=== PATIENT | female | born 1945 | race Caucasian/White ===

== ENCOUNTER 2020-05-15 14:57 | Outpatient (RCR) | payer MEDICARE, SELFPAY ==
[2013-06-10 14:44] VITALS: BMI 27.0
== END 2020-05-15 23:59 ==
LOC: IMMUN 14:57
PROVIDERS: PCP Family Medicine; Visit Provider Family Medicine
DX: Z23 Encounter for immunization (principal)
CPT/HCPCS: 0011A; 0012A

== ENCOUNTER 2023-04-26 11:01 | Emergency (ER) | payer MEDICARE, SELFPAY ==
[2023-04-26 11:01] VITALS: BP 143/76; PULSE 75; RESP 16; TEMP 35.3; O2SAT 100; BMI 27.9
--- NOTE | 2023-04-26 11:14 | EDS_ITS ---
<Statement entered by Nicholas Roblero MD - 04/26/23 16:51> Pt seen & evaluated w/[facility]. I personally interviewed & exam the pt. I was involved in all aspects of pt's orders, interpretation of results & treatment HPI <ARMIN Chinchilla - Last Filed: 04/26/23 15:12> History of Present Illness Chief Complaint: Diarrhea Narrative Narrative: Patient is a 77-year-old female with history of hypothyroidism takes levothyroxine, presenting to the [facility] apartment with 1 week of diarrhea. Patient states that she is having multiple episodes a day, she states that is just water. She has states that sometimes in the night, she wakes up and she already had diarrhea. She denies any back pain, she denies any numbness or tingling, saddle paresthesia. Patient states that when she is up, she knows she has to go but when she has to go it instant. She denies any fever or chills, she denies any abdominal pain. She did go to urgent care twice for this however after the second time they referred her here for further workup. Patient did go to [facility] which is in [facility] was gone for 1 week and returned home a week ago. Patient states she had no illness there. Patient is well and has no symptoms. Denies any recent biotics in last several months. PFSH <ARMIN Chinchilla - Last Filed: 04/26/23 15:12> [facility] Home Medications levothyroxine 125 mcg tablet 125 mcg PO DAILY 06/10/13 [History Last Taken Unknown] montelukast 10 mg tablet 10 mg PO DAILY 06/10/13 [History Last Taken Unknown] ciprofloxacin HCl 500 mg tablet (Cipro) 500 mg PO BID #10 tabs 04/26/23 [Rx Last Taken Unknown] loperamide 2 mg capsule (Imodium A-D) 2 mg PO Q6H PRN loose stool #20 caps 04/26/23 [Rx Last Taken Unknown] Allergy/AdvReac Type Severity Reaction Status Date / Time iodine Allergy Rash Verified 06/10/13 14:42 naproxen Allergy Other Verified 06/10/13 14:42 Social History Smoking Status: Former smoker ROS <ARMIN Chinchilla - Last Filed: 04/26/23 15:12> ROS ED ROS Narrative Constitutional: No fever, no chills. Positive for weakness HEENT: No sore throat. No neck pain. No loss of vision. No rhinorrhea. Cardiovascular: No chest pain. No palpitations. No pedal edema. Respiratory: No cough, no shortness of breath. Abdominal: No abdominal pain. No nausea. No vomiting. Positive for liquid diarrhea Genitourinary: No dysuria. No hematuria. Musculoskeletal: No myalgias. No arthralgias. Neurologic: No headaches. No dizziness. No lightheadedness. Skin: No rash. No change in color. Psychiatric: No depression. No anxiety. EXAM <ARMIN Chinchilla - Last Filed: 04/26/23 15:12> Physical Exam Narrative Exam Narrative: Afebrile. Vital signs noted. HEENT: Normocephalic. Atraumatic. PERRL, EOMI. Neck soft and supple. No point tenderness or step off. Cardiovascular: Regular rate and rhythm. No murmurs, rubs, or gallops appreciated. Respiratory: No tachypnea. Lungs clear to auscultation bilaterally. Gastrointestinal: Abdomen soft, nontender, with normoactive bowel sounds. No rebound or guarding. Negative for any peritoneal signs. Active bowel sounds in all quadrants Neurological: Awake. Alert. Nonfocal, nonlateralizing. Skin: No rash. Normal color. No pallor. Musculoskeletal: No pedal edema. Full range of motion extremities. Const Vital Signs: 04/26/23 11:01 Temperature 95.6 F L Temperature Source Temporal Pulse Rate 75 Respiratory Rate 16 Blood Pressure 143/76 H Blood Pressure Mean 98 Pulse Ox 100 Oxygen Delivery Method Room Air Positive well nourished and well developed General Appearance ED: well developed <Dr. Nicholas Roblero MD - Last Filed: 04/26/23 12:51> Physical Exam Const Vital Signs: 04/26/23 11:01 Temperature 95.6 F L Temperature Source Temporal Pulse Rate 75 Respiratory Rate 16 Blood Pressure 143/76 H Blood Pressure Mean 98 Pulse Ox 100 Oxygen Delivery Method Room Air MDM <ARMIN Chinchilla - Last Filed: 04/26/23 15:12> MDM Lab Data Labs: Laboratory Results - last 24 hr 04/26/23 11:29 WBC 4.1 L RBC 5.31 Hgb 15.1 H Hct 45.1 MCV 84.9 MCH 28.4 MCHC 33.5 RDW Std Deviation 40.7 RDW Coeff of Rik 13.1 Plt Count 317 MPV 9.8 Immature Gran % (Auto) 0.200 Neut % (Auto) 65.8 Lymph % (Auto) 18.4 L [place] % (Auto) 14.2 H Eos % (Auto) 1.2 Baso % (Auto) 0.2 Absolute Neuts (auto) 2.7 Absolute Lymphs (auto) 0.75 L Nucleated RBC % 0 Sodium 135 L Potassium 3.2 L Chloride 98 Carbon Dioxide 23.0 Anion Gap 14 BUN 21 H Creatinine 1.06 H Estim Creat Clear Calc 46.84 Est GFR (MDRD) Af Amer 65 Est GFR (MDRD) Non-Af 54 L BUN/Creatinine Ratio 19.8 Glucose 97 Calcium 8.1 L Total Bilirubin 0.60 AST 19 ALT 31 Alkaline Phosphatase 83 Total Protein 7.2 Albumin 3.4 Globulin 3.8 Albumin/Globulin Ratio 0.9 Treatment and Re-Evaluation :: Patient appears generally well, patient appears nontoxic, vital signs are stable. Presenting to the emergency department for complaints of diarrhea that been ongoing for the last week. Patient does have recent travel. Patient differential diagnose includes traveler's diarrhea, norovirus, C. difficile, gastroenteritis, other abdominal pathology. Patient's abdominal exam was gross unremarkable, patient had no pain to the right or left lower quadrant, no evidence suspecting diverticulitis, appendicitis. Patient will receive basic laboratory values as well as IV fluids. Stool cultures and sample was ordered. Patient's CBC showed a leukopenia with a white blood count of 4.1, patient's chemistry shows sodium of 135, potassium 3.2, BUN of 21 with a creatinine of 1.06, these only mild elevated. GFR is 54. Remainder of the labs are unremarkable. I did speak with the laboratory, today we will receive the enteric pathogen's as well as the C. difficile, the ova and parasites to send out. However at this time, we are currently waiting for that but the patient looks generally well. Patient C. difficile was negative. At this time, I do believe the patient is stable for discharge. Patient given a prescription for Cipro 500 mg, she will start today. She was placed on Cipro for 5 days. She also given Imodium. All questions were answered, patient stable for discharge <Dr. Nicholas Roblero MD - Last Filed: 04/26/23 12:51> MDM MDM Narrative Medical decision making narrative: I have personally performed a face to face assessment of the patient and have reviewed the ERNA Note. I performed a substantive portion of the visit including all aspects of the following. My lofton findings include: History is 77-year-old female recent trip to [facility] over the last week she has had episodes of diarrhea. Usually 1-2 a day. No prior history. No one else on the trip is ill. She has been on no recent antibiotics nor had any recent hospitalization. Exam is [77-year-old female no acute distress. Vital signs stable afebrile. HEENT exam unremarkable. Neck nontender. Lungs clear to auscultation bilaterally. Heart regular rhythm no murmur rate about 75. Abdomen soft, nontender, nondistended normal bowel sounds no peritoneal signs. Moving all 4 extremities. Calves are nontender without edema. Neurologically she is awake and alert.] Medical Decision Making [77-year-old recent travel weeks worth of diarrhea. But she is only having 1-2 episodes a day. IV fluids and labs. Stool studies.] Other additions or changes: [None] Lab Data Attestation: I reviewed the patient's lab results. Lab results narrative: CBC shows a white count of 4. H&H 15 and 45. Platelets 317. Electrolytes show sodium 135. Potassium 3.2. BUN of 21 creatinine of 1 consist ent with mild dehydration. Liver enzymes are normal. Stool studies are pending. Labs: Laboratory Results - last 24 hr 04/26/23 11:29 WBC 4.1 L RBC 5.31 Hgb 15.1 H Hct 45.1 MCV 84.9 MCH 28.4 MCHC 33.5 RDW Std Deviation 40.7 RDW Coeff of Rik 13.1 Plt Count 317 MPV 9.8 Immature Gran % (Auto) 0.200 Neut % (Auto) 65.8 Lymph % (Auto) 18.4 L [place] % (Auto) 14.2 H Eos % (Auto) 1.2 Baso % (Auto) 0.2 Absolute Neuts (auto) 2.7 Absolute Lymphs (auto) 0.75 L Nucleated RBC % 0 Sodium 135 L Potassium 3.2 L Chloride 98 Carbon Dioxide 23.0 Anion Gap 14 BUN 21 H Creatinine 1.06 H Estim Creat Clear Calc 46.84 Est GFR (MDRD) Af Amer 65 Est GFR (MDRD) Non-Af 54 L BUN/Creatinine Ratio 19.8 Glucose 97 Calcium 8.1 L Total Bilirubin 0.60 AST 19 ALT 31 Alkaline Phosphatase 83 Total Protein 7.2 Albumin 3.4 Globulin 3.8 Albumin/Globulin Ratio 0.9 Discharge Plan Triage Chief Complaint: Diarrhea ED Midlevel Provider: Matthew Snowden ED Provider: Nicholas Roblero Dx/Rx/DC Orders Clinical Impression: Diarrhea after vaccination Instructions: ED Diarrhea, Unknown Cause, ED Traveler's Diarrhea (Adult) Prescriptions: New ciprofloxacin HCl [Cipro] 500 mg tablet 500 mg PO BID Qty: 10 0RF loperamide [Imodium A-D] 2 mg capsule 2 mg PO Q6H PRN (Reason: loose stool) Qty: 20 0RF No Action levothyroxine 125 MCG tablet 125 mcg PO DAILY montelukast 10 MG tablet 10 mg PO DAILY Primary Care Provider: Amado Fabian Referrals: Agustín Mckeon MD [Non-Staff] - Activity Restrictions/Additional Instructions: Take the Cipro until finished, using Imodium. Disposition Disposition: Home, Self Care
[2023-04-26] MEDS: Dicyclomine 10 MG Capsule 20 MG PO (11:35)
[2023-04-26] MEDS: 0.9% Normal Saline (1000mL) 1,000 ML 999 ML IV (11:35)
--- OUTSIDE RECORDS SUMMARY | 2023-04-26 11:42 | XMS RPT_ITS | CCD ---
Author Name Unknown Address [address] [place] [address] Organization [facility] Care Team Providers Care Plant Operator Name Role Phone Amado Freeman DO Primary Care Provider [phone] AMADO FREEMAN Primary Care Unavailable AMADO FREEMAN Referring Unavailable AMADO FREEMAN Primary Care Unavailable AMADO FREEMAN Referring Unavailable FREEAMNAMADO JUNIOR Primary Care Unavailable CHAY SARGENT Referring Unavailable AMADO FREEMAN Referring Unavailable AMADO FREEMAN Primary Care Unavailable AMADO FREEMAN Attending Unavailable AMADO FREEMAN Primary Care Unavailable AMADO FREEMAN Primary Care Unavailable SINDHU QUINTANA Attending Unavailable MELISSA MUNOZ Referring Unavailable FREEMANAMADO JUNIOR Primary Care Unavailable POLLO ZHANG Attending Unavaila ble MELISSA MUNOZ Attending Unavailable AMADO FREEMAN Primary Care Unavailable LYNN SHETH Referring Unavailable AMADO FREEMAN Primary Care Unavailable MISTI ARCOS Attending Unavailable Allergies Allergy Classification Reported Allergen(s) Allergy Type Date of Onset Reaction(s) Facility (20 sources) Iodine; Translations: [IODINE] Drug Allergy 5 [facility] Work Phone: [phone] (20 sources) Naproxen; Translations: [NAPROXEN] Drug Allergy 5 Shortness of Breath [facility] Work Phone: (20 sources) Sulfonamides (Antibiotic); Translations: [SULFA (SULFONAMIDE ANTIBIOTICS)] Drug Intolerance 2 [facility] Work Phone: Medications Current Medications Medication Drug Class(es) Dates Sig (Normalized) Sig (Original) amoxicillin 875 mg / clavulanate 125 mg oral tablet (2 sources) Penicillin-class Antibacterial Start: 10-02-2022 End: 10-12-2022 take 1 tablet by mouth twice daily amoxicillin-clav ulanic acid (AUGMENTIN) 875-125 mg per tablet Indications: Acute otitis media, right Take 1 tablet by mouth twice daily for 10 days. 20 tablet 0 10/02/2022 10/12/2022 Active Completed/Discontinued Medications Medication Drug Class(es) Dates Sig (Normalized) Sig (Original) [id number] 200 actuat albuterol 0.09 mg/actuat metered dose inhaler (8 sources) beta2-Adrenergic Agonist Start: 08-12-2017 End: 04-03-2022 take 2 puff(s) by inhalation every six hours as needed albuterol HFA (VENTOLIN HFA) 90 mcg/actuation inhaler Inhale 2 Puffs as instructed every 6 hours as needed. 1 Inhaler 3 08/12/2017 04/03/2022 Discontinued (Discontinued by Patient) Problems Active Problems Problem Classification Problem Date Documented Da te Episodic/Chronic Allergic reactions (1 source) Eruption due to drug; Translations: [Generalized skin eruption due to drugs and medicaments taken internally] Episodic Asthma (20 sources) Asthma; Translations: [Unspecified asthma, uncomplicated] Onset: 06-24-2016 01-11-2015 Chronic Disorders of lipid metabolism (18 sources) Dyslipidemia; Translations: [Hyperlipidemia, unspecified] Onset: 10-02-2022 Chronic Diverticulosis and diverticulitis (20 sources) Diverticulosis of colon; Translations: [Diverticulosis of large intestine without perforation or abscess without bleeding] 10-23-2005 Chronic Hemorrhoids (20 sources) Internal hemorrhoids; Translations: [Other hemorrhoids] 10-23-2005 Episodic Intestinal infection (1 source) Viral gastroenteritis; Translations: [Viral intestinal infection, unspecified] 04-24-2023 Episodic Other and unspecified benign neoplasm (4 sources) Neoplasm of meninges; Translations: [Benign neoplasm of meninges, unspecified] 11-15-2022 Chronic Other and unspecified benign neoplasm (1 source) Benign neoplasm of meninges, unspecified; Translations: [Meningioma (HCC)] Onset: 12-13-2022 Chronic Other and unspecified benign neoplasm (20 sources) Benign neoplasm of colon; Translations: [Benign neoplasm of colon, unspecified] 10-23-2005 Episodic Other and unspecified benign neoplasm (20 sources) Polyp of colon; Translations: [Polyp of colon] 07-14-2014 Episodic Other ear and sense organ disorders (1 source) Sensorineural hearing loss, bilateral; Translations: [Sensorineural hearing loss, bilateral] 01-23-2023 Chronic Other ear and sense organ disorders (1 source) Sensorineural hearing loss, bilateral; Translations: [Sensorineural hearing loss, bilateral] Onset: 01-23-2023 Chronic Other ear and sense organ disorders (2 sources) Eczema of external auditory canal; Translations: [Acute eczematoid otitis externa, bilateral] Episodic Other gastrointestinal disorders (1 source) Dysphagia; Translations: [Dysphagia, unspecified] Episodic Other hereditary and degenerative nervous system conditions (1 source) Mild cognitive impairment, so stated; Translations: [Mild cognitive impairment, so stated] 11-27-2022 Chronic Other inflammatory condition of skin (20 sources) Scalp psoriasis; Translations: [Psoriasis, unspecified] Onset: 06-24-2016 Chronic Other nervous system disorders (1 source) Mass lesion of brain; Translations: [Other specified disorders of brain] 11-15-2022 Chronic Other nervous system disorders (1 source) Other specified disorders of brain; Translations: [Brain mass] Onset: 11-15-2022 Chronic Other skin disorders (1 source) Sebaceous cyst of skin; Translations: [Sebaceous cyst] Episodic Other skin disorders (2 sources) Eruption; Translations: [Rash and other nonspecific skin eruption] Episodic Other skin disorders (1 source) Skin lesion; Translations: [Disorder of the skin and subcutaneous tissue, unspecified] Episodic Skin and subcutaneous tissue infections (1 source) Infection of skin; Translations: [Local infection of the skin and subcutaneous tissue, unspecified] Episodic Thyroid disorders (20 sources) Hypothyroidism; Translations: [Hypothyroidism, unspecified] Onset: 03-12-2021 03-12-2021 Chronic Past or Other Problems Problem Classification Problem Date Documented Da te Episodic/Chronic Diabetes mellitus without complication (17 sources) Hyperglycemia; Translations: [Hyperglycemia, unspecified] Onset: 10-02-2022 10-02-2022 Episodic Gastritis and duodenitis (20 sources) Acute gastritis; Translations: [Acute gastritis without bleeding] Onset: 10-23-2005 10-23-2005 Episodic Other gastrointestinal disorders (20 sources) Dysphagia, unspecified; Translations: [Dysphagia, unspecified] Onset: 06-30-2014 Episodic Other non-traumatic joint disorders (20 sources) Pain in right hip joint; Translations: [Pain in right hip] Onset: 11-26-2017 11-26-2017 Episodic Other screening for suspected conditions (not mental disorders or infectious disease) (20 sources) Patient encounter status; Translations: [Encounter for screening, unspecified] Onset: 06-30-2014 Episodic Otitis media and related conditions (16 sources) Acute right otitis media; Translations: [Otitis media, unspecified, right ear] Onset: 10-02-2022 10-02-2022 Episodic Residual codes; unclassified (18 sources) Poor short-term memory ; Translations: [Other amnesia] Onset: 10-02-2022 Episodic Residual codes; unclassified (1 source) Other amnesia; Translations: [Short-term memory loss] Onset: 10-02-2022 Episodic Results Test Name Value Interpretation Reference Range Facil ity Vital Signs Date Time Vital Sign Value Performing Clinician Nadiya lockett 04-24-2023 09:24-0500 Body weight 79.38 kg Sindhu Quintana APRN.GATE PERSON Work Phone: [facility] 04-24-2023 09:24-0500 Diastolic blood pressure 84 mm[Hg] Sindhu Quintana APRN.GATE PERSON Work Phone: [facility] 04-24-2023 09:24-0500 Heart rate 79 /min Sindhu Quintana APRN.GATE PERSON Work Phone: [facility] 04-24-2023 09:24-0500 Respiratory rate 16 /min Sindhu Quintana APRN.GATE PERSON Work Phone: [facility] 04-24-2023 09:24-0500 SaO2% (BldA) [Mass fraction] 96 % Sindhu Quintana APRN.GATE PERSON Work Phone: [facility] 04-24-2023 09:24-0500 Systolic blood pressure 120 mm[Hg] Sindhu Quintana APRN.GATE PERSON Work Phone: [facility] 12-13-2022 10:43-0400 Body height 163.1 cm Melissa Munoz MD Work Phone: [facility] 12-13-2022 10:43-0400 Body temperature 97.59 [degF] Melissa Munoz MD Work Phone: [facility] 12-13-2022 10:43-0400 Body weight 81.6 kg Melissa Munoz MD Work Phone: [facility] 12-13-2022 10:43-0400 Diastolic blood pressure 68 mm[Hg] Melissa Munoz MD Work Phone: [facility] 12-13-2022 10:43-0400 Heart rate 66 /min Melissa Munoz MD Work Phone: [facility] 12-13-2022 10:43-0400 Respiratory rate 18 /min Melissa Munoz MD Work Phone: [facility] 12-13-2022 10:43-0400 SaO2% (BldA) [Mass fraction] 100 % Melissa Munoz MD Work Phone: [facility] 12-13-2022 10:43-0400 Systolic blood pressure 185 mm[Hg] Melissa Munoz MD Work Phone: [facility] 11-27-2022 09:24-0400 Body weight 82.15 kg Misti Arcos MD Work Phone: [facility] 11-27-2022 09:24-0400 Diastolic blood pressure 69 mm[Hg] Misti Arcos MD Work Phone: [facility] 11-27-2022 09:24-0400 Heart rate 60 /min Misti Arcos MD Work Phone: [facility] 11-27-2022 09:24-0400 Systolic blood pressure 139 mm[Hg] Misti Arcos MD Work Phone: [facility] 10-02-2022 10:38-0400 Body temperature 96.3 [degF] Amado Freeman DO Work Phone: [facility] 10-02-2022 10:38-0400 Body weight 83.46 kg Amado Freeman DO Work Phone: [facility] 10-02-2022 10:38-0400 Diastolic blood pressure 70 mm[Hg] Amado Freeman DO Work Phone: [facility] 10-02-2022 10:38-0400 Heart rate 72 /min Amado Freeman DO Work Phone: [facility] 10-02-2022 10:38-0400 Respiratory rate 16 /min Amado Freeman DO Work Phone: [facility] 10-02-2022 10:38-0400 Systolic blood pressure 124 mm[Hg] Amado Freeman DO Work Phone: [facility] 04-03-2022 08:43-0500 Body weight 84.91 kg Chay Rosetta STAFF THERAPIST.GATE PERSON Work Phone: [facility] 04-03-2022 08:43-0500 Diastolic blood pressure 90 mm[Hg] Chay Rosetta STAFF THERAPIST.GATE PERSON Work Phone: [facility] 04-03-2022 08:43-0500 Heart rate 76 /min Chay Rosetta STAFF THERAPIST.GATE PERSON Work Phone: [facility] 04-03-2022 08:43-0500 Respiratory rate 16 /min Chay Rosetta STAFF THERAPIST.GATE PERSON Work Phone: [facility] 04-03-2022 08:43-0500 SaO2% (BldA) [Mass fraction] 98 % Chay Rosetta STAFF THERAPIST.GATE PERSON Work Phone: [facility] 04-03-2022 08:43-0500 Systolic blood pressure 142 mm[Hg] Chay Rosetta STAFF THERAPIST.GATE PERSON Work Phone: [facility] 09-10-2021 09:49-0400 Body weight 78.93 kg Chay Rosetta STAFF THERAPIST.GATE PERSON Work Phone: [facility] 09-10-2021 09:49-0400 Diastolic blood pressure 70 mm[Hg] Chay Rosetta STAFF THERAPIST.GATE PERSON Work Phone: [facility] 09-10-2021 09:49-0400 Heart rate 87 /min Chay Rosetta STAFF THERAPIST.GATE PERSON Work Phone: [facility] 09-10-2021 09:49-0400 Respiratory rate 16 /min Chay Rosetta STAFF THERAPIST.GATE PERSON Work Phone: [facility] 09-10-2021 09:49-0400 SaO2% (BldA) [Mass fraction] 98 % Chay Rosetta STAFF THERAPIST.GATE PERSON Work Phone: [facility] 09-10-2021 09:49-0400 Systolic blood pressure 136 mm[Hg] Chay Rosetta STAFF THERAPIST.GATE PERSON Work Phone: [facility] 08-30-2021 11:12-0400 Body weight 79.74 kg Polina Zurawick STAFF THERAPIST.GATE PERSON Work Phone: [facility] 08-30-2021 11:12-0400 Diastolic blood pressure 60 mm[Hg] Polina Zurawick STAFF THERAPIST.GATE PERSON Work Phone: [facility] 08-30-2021 11:12-0400 Heart rate 72 /min Polina Zurawick STAFF THERAPIST.GATE PERSON Work Phone: [facility] 08-30-2021 11:12-0400 Respiratory rate 16 /min Polina Zurawick STAFF THERAPIST.GATE PERSON Work Phone: [facility] 08-30-2021 11:12-0400 Systolic blood pressure 130 mm[Hg] Polina Zurawick STAFF THERAPIST.GATE PERSON Work Phone: [facility] 08-20-2021 11:10-0400 Body temperature 97.7 [degF] Mirela Currie-Lucio STAFF THERAPIST.GATE PERSON Work Phone: [facility] 08-20-2021 11:10-0400 Body weight 80.11 kg Mirela Currie-Lucio STAFF THERAPIST.GATE PERSON Work Phone: [facility] 08-20-2021 11:10-0400 Diastolic blood pressure 100 mm[Hg] Mirela Jaraler-Lucio STAFF THERAPIST.GATE PERSON Work Phone: [facility] 08-20-2021 11:10-0400 Heart rate 74 /min Mirela Currie-Lucio STAFF THERAPIST.GATE PERSON Work Phone: [facility] 08-20-2021 11:10-0400 Respiratory rate 20 /min Mirela Currie-Lucio STAFF THERAPIST.GATE PERSON Work Phone: [facility] 08-20-2021 11:10-0400 SaO2% (BldA) [Mass fraction] 98 % Mirela Cochran STAFF THERAPIST.GATE PERSON Work Phone: [facility] 08-20-2021 11:10-0400 Systolic blood pressure 160 mm[Hg] Mirela Jaraler-Lucio STAFF THERAPIST.GATE PERSON Work Phone: [facility] Encounters Encounter Date Encounter Type Care Provider Facility Start: 04-24-2023 ambulatory AMADO Valdivia ity:[facility] Start: 04-24-2023 End: 04-24-2023 Patient encounter procedure Sindhu Quintana STAFF THERAPIST.GATE PERSON Work Phone: [facility] [place] Procedures Date Procedure Procedure Detail Performing Clinician Start: 01-23-2023 HEARING TEST/AUDIOGRAM Pollo GIL Work Phone: Start: 11-15-2022 Mri brain brain stem w/o w/contrast material Amado Freeman DO Work Phone: Start: 10-16-2022 Ct head/brain w/o co ntrast material Amado Renaeon DO Work Phone: Start: 04-03-2022 Lipid 1996 panel - S barrera or Plasma Misti Arcos MD Work Phone: Start: 08-30-2021 Adult depression scr eening assessment Polina Sheridan STAFF THERAPIST.GATE PERSON Work Phone: Start: 10-02-2017 Mammography Amado junior DO Work Phone: Start: 06-30-2014 Colonoscopy Amado Borrero kaljulia DO Work Phone: Plan of Treatment Date Care Activity Detail Author Start: 04-03-2027 Lipid 1996 panel - Serum or Plasma Lipid Screening [facility] Start: 04-03-2027 Lipid panel Lipid Screening [facility] Start: 04-03-2027 LIPID SCREEN LIPID SCREEN [facility] Start: 10-03-2025 DIABETES SCREEN DIABETES SCREEN [facility] Start: 10-03-2025 Diabetes Screening Diabetes Screenin g [facility] Start: 04-03-2025 DIABETES SCREEN DIABETES SCREEN [facility] Start: 04-24-2024 Annual PCP Team Principal Law Clerk amy Disease Visit Annual PCP Team Chronic Disease Visit [facility] Start: 01-09-2024 DIABETES SCREEN DIABETES SCREEN [facility] Start: 10-03-2023 ANNUAL PCP TEAM EMERY GRINDER AMY DISEASE VISIT ANNUAL PCP TEAM CHRONIC DISEASE VISIT [facility] Start: 04-03-2023 ANNUAL PCP TEAM EMERY GRINDER AMY DISEASE VISIT ANNUAL PCP TEAM CHRONIC DISEASE VISIT [facility] Start: 03-17-2023 Depression Assessment Depression Ass essment [facility] Start: 11-15-2022 Covid-19 Vaccine ( season) Covid-19 Vaccine () [facility] Start: 11-15-2022 Influenza vaccination [facility] Start: 10-03-2022 End: 12-03-2022 Thyrotropin [Units/volume] in Serum or Plasma TSH BLD Lab Routine Hypothyroidism, unspecified type Expected: 10/03/2022, Expires: 12/03/2022 [facility] Work Phone: Immunizations Immunization Date Immunization Notes Care Provider Fa cilinorma 01-07-2022 influenza virus vacc ine, unspecified formulation Misti Arcos MD Work Phone: [facility] 01-12-2021 influenza, high-dose , quadrivalent vaccine (FLUZONE HIGH DOSE QUADRIVALENT) Amado Freeman DO Work Phone: [facility] 11-30-2019 influenza, high-dose , quadrivalent vaccine (FLUZONE HIGH DOSE QUADRIVALENT) Amado Freeman DO Work Phone: [facility] 02-01-2019 influenza, high dose seasonal, preservative-free Amado Freeman DO Work Phone: [facility] Work Phone: 10-01-2017 pneumococcal polysaccharide vaccine, 23 valent Amado Freeman DO Work Phone: [facility] 06-06-2015 pneumococcal conjuga te vaccine, 13 valent Amado Freeman DO Work Phone: [facility] Work Phone: 01-11-2015 influenza, high dose seasonal, preservative-free Amado Freeman DO Work Phone: [facility] 05-31-2011 pneumococcal polysaccharide vaccine, 23 valent Amado Freeman DO Work Phone: [facility] 05-30-2011 tetanus toxoid, redu jaylyn diphtheria toxoid, and acellular pertussis vaccine, adsorbed Amado Freeman DO Work Phone: [facility] Work Phone: Payers Date Payer Category Payer Medicare [id number] 2019 Unknown MMO MMO MEDICARE SUPPLEMENT [id number] 2019-Present [phone] [address] [place] [address] Indemnity [id number] 2019 Unknown MMO MMO MEDICARE SUPPLEMENT [id number] 2019-Present [phone] [address] [place] [address] Indemnity [id number] 2012 Medicare MEDICARE MEDICAR E A AND B [id number] 2012-Present [phone] [address] [address] [place] [address] Medicare [id number] 2012 Medicare [id number] Social History Date Type Detail Facility Start: 07-12-2016 End: 04-03-2022 Tobacco smoking status NHIS Ex-smoker [facility] Start: 11-21-1963 End: 03-17-1996 History of tobacco use Current smoker [facility] Start: 11-21-1963 End: 03-17-1996 History of tobacco use Cigarette Smoker [facility] Start: 01-08-2021 End: 04-24-2023 Alcohol intake Current drinker of alcohol (finding) [facility] Start: 01-08-2021 End: 04-01-2022 Alcohol intake [facility] Work Phone: Start: 07-12-2016 End: 04-03-2022 Tobacco Comment Parents smoked in childhood home. [facility] Start: 1945 Sex Assigned At Female [facility] Start: 08-10-2021 End: 09-10-2021 Exposure to SARS-CoV-2 (event) Not sure [facility] Work Phone: Start: 07-12-2016 End: 04-03-2022 Tobacco use and exposure Smokeless tobacco non-user [facility] Work Phone: Start: 04-01-2022 End: 10-02-2022 Tobacco use panel [facility] Work Phone: Adult Depression Screening Assessment 0 [facility] Work Phone: Start: 01-30-2019 Gender identity Identifies as female gender (finding) [facility] Start: 01-30-2019 Sexual orientation Heterosexual (fin ding) [facility] Clinical Notes 01-19-2021 to 04-24-2023 Patient InstructionsTanSindhu chen APRN.GATE PERSON - 04/24/2023 9:17 AM ESTTelephone Encounter - Kisha Velasquez LPN - 02/27/2023 3:18 PM ESTPollo Zhang AUD - 01/23/2023 3:17 PM EST Note Date & Type Note Facility 04-24-2023 Note HNO ID: [id number] Author: SINDHU QUINTANA APRN.GATE PERSON Service: ? Author Type: Nurse Practitioner Type: Progress Notes Filed: 04/24/2023 09:50 Note Text: This is a 77 year old female who presents today with: Patient presents with: Acute Visit: diarrhea x 2 days HISTORY OF PRESENT ILLNESS: Twan Okeefe is a 77 year old female. Patient presents with: Acute Visit: diarrhea x [address] Freeman here in the office for diarrhea. Started 2 days ago. Having 2-3 episodes of diarrhea per day. No mucus or blood in the stool. Able to tolerate diet without any issues. No recent antibiotic use or international travel. BM's are normally regular. No abdominal pain/cramping, nausea, or vomiting. Colonoscopy: was due in 2018 due to polyps. Patient refers she does not want to have repeat colonoscopies in the future. PAST MEDICAL HISTORY: PAST MEDICAL HISTORY Diagnosis Date Acute gastritis without mention of hemorrhage Asthma in adult, mild persistent, uncomplicated Colon polyps Diverticulosis of colon (without mention of hemorrhage) Glaucoma suspect Hemangioma of unspecified site HEPATIC Hypercholesteremia refuses statins Hypothyroidism Endo: Dr. 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 ezetimibe (ZETIA) 10 mg tablet Take 1 tablet by mouth once daily. ketoconazole (NIZORAL) 2 % shampoo Apply to affected area once daily as needed. iv contrast (will be provided with radiology test) MRI Skull Base Inject, intravenously, once for 1 dose. No IV access, insert saline lock prior to the beginning of sedation, infusion, injection of imaging exam. Discontinue saline lock post exam. If Pt. has a central line or IVAD, may access for administration according to line specific nursing protocol. Once exam is complete flush line and de-access according to line specific nursing protocol in the MR contrast administration guidelines link. dexAMETHasone (PF) ophthalmic solution 0.1% (IP-CPD) Instill 1 drop into each ear canal twice daily until resolution of eczema. Then use as needed for flare-ups. levothyroxine (SYNTHROID) 150 mcg tablet TAKE 1 TABLET BY MOUTH ONCE DAILY ON EMPTY STOMACH FOR THYROID. fluticasone (FLOVENT HFA) 44 mcg/actuation inhaler Inhale 2 Puffs as instructed twice daily. triamcinolone acetonide (KENALOG) 0.1 % cream Apply to affected area twice daily. esomeprazole (NEXIUM) 20 mg capsule TAKE 1 CAPSULE EVERY DAY 1/2 HOUR BEFORE BREAKFAST CHOLECALCIFEROL, VITAMIN D3, (VITAMIN D3 ORAL) Take by mouth. VITAMIN B COMPLEX (B COMPLEX ORAL) Take by mouth once daily. CALCIUM 500 WITH VITAMIN D 500 MG-125 UNIT TAB Take one(1) tablet three times daily. MULTIVITAMIN ORAL TAB Take one(1) tablet daily. No current facility-administered medications for this visit. FAMILY HISTORY Problem Relation Age of Onset Alzheimer's Disease Mother passed 2003 Cancer Father of the lungs, from this Cancer Sister stomach passed from this 03/22/05 Diabetes Sister Hypertension Sister Lipids Sister Social History Tobacco Use Smoking status: Former Packs/day: 0.50 Years: 30.00 Additional pack years: 0.00 Total pack years: 15.00 Types: Cigarettes Start date: 11/21/1963 Quit date: 03/17/1996 Years since quittin.1 Smokeless tobacco: Never Tobacco comments: Parents smoked in childhood home. Vaping Use Vaping Use: Never used Substance Use Topics Alcohol use: Yes Alcohol/week: 1.0 standard drink of alcohol Types: 1 Glasses of Wine (5oz) per week Comment: Socially Drug use: No REVIEW OF SYSTEMS GENERAL: No weight loss, malaise or fevers/chills HEENT: Negative for frequent or significant headaches, No changes in hearing or vision. NECK: Negative for lumps, goiter, pain and significant neck swelling RESPIRATORY: Negative for cough, hemoptysis, wheezing, dyspnea or shortness of breath CARDIOVASCULAR: Negative for chest pain, leg swelling, orthopnea, or palpitations GI: + Diarrhea : No history of dysuria, frequency or incontinence MUSCULOSKELETAL: Negative for joint pain or swelling. SKIN: Negative for lesion (more content not included)... [facility] 04-24-2023 Instructions Sindhu Quintana APRN.CNP - 04/24/2023 9:39 AM EST Continue supportive care at home Stay well hydrated, if needed may drink a body armour May trial a bland diet Good hand hygiene Contact the office if symptoms get worse or do not improve. documented in this encounter [facility] 04-24-2023 History of Present illness Narrative This is a 77 year old female who presents today with: Patient presents with: Acute Visit: diarrhea x 2 days HISTORY OF PRESENT ILLNESS: Twan Okeefe is a 77 year old female. Patient presents with: Acute Visit: diarrhea x [address] Freeman here in the office for diarrhea. Started 2 days ago. Having 2-3 episodes of diarrhea per day. No mucus or blood in the stool. Able to tolerate diet without any issues. No recent antibiotic use or international travel. BM's are normally regular. No abdominal pain/cramping, nausea, or vomiting. Colonoscopy: was due in 2018 due to polyps. Patient refers she does not want to have repeat colonoscopies in the future. PAST MEDICAL HISTORY: PAST MEDICAL HISTORY Diagnosis Date Acute gastritis without mention of hemorrhage Asthma in adult, mild persistent, uncomplicated Colon polyps Diverticulosis of colon (without mention of hemorrhage) Glaucoma suspect Hemangioma of unspecified site HEPATIC Hypercholesteremia refuses statins Hypothyroidism Endo: Dr. 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 ezetimibe (ZETIA) 10 mg tablet Take 1 tablet by mouth once daily. ketoconazole (NIZORAL) 2 % shampoo Apply to affected area once daily as needed. iv contrast (will be provided with radiology test) MRI Skull Base Inject, intravenously, once for 1 dose. No IV access, insert saline lock prior to the beginning of sedation, infusion, injection of imaging exam. Discontinue saline lock post exam. If Pt. has a central line or IVAD, may access for administration according to line specific nursing protocol. Once exam is complete flush line and de-access according to line specific nursing protocol in the MR contrast administration guidelines link. dexAMETHasone (PF) ophthalmic solution 0.1% (IP-CPD) Instill 1 drop into each ear canal twice daily until resolution of eczema. Then use as needed for flare-ups. levothyroxine (SYNTHROID) 150 mcg tablet TAKE 1 TABLET BY MOUTH ONCE DAILY ON EMPTY STOMACH FOR THYROID. fluticasone (FLOVENT HFA) 44 mcg/actuation inhaler Inhale 2 Puffs as instructed twice daily. triamcinolone acetonide (KENALOG) 0.1 % cream Apply to affected area twice daily. esomeprazole (NEXIUM) 20 mg capsule TAKE 1 CAPSULE EVERY DAY 1/2 HOUR BEFORE BREAKFAST CHOLECALCIFEROL, VITAMIN D3, (VITAMIN D3 ORAL) Take by mouth. VITAMIN B COMPLEX (B COMPLEX ORAL) Take by mouth once daily. CALCIUM 500 WITH VITAMIN D 500 MG-125 UNIT TAB Take one(1) tablet three times daily. MULTIVITAMIN ORAL TAB Take one(1) tablet daily. No current facility-administered medications for this visit. FAMILY HISTORY Problem Relation Age of Onset Alzheimer's Disease Mother passed 2003 Cancer Father of the lungs, from this Cancer Sister stomach passed from this 03/22/05 Diabetes Sister Hypertension Sister Lipids Sister Social History Tobacco Use Smoking status: Former Packs/day: 0.50 Years: 30.00 Additional pack years: 0.00 Total pack years: 15.00 Types: Cigarettes Start date: 11/21/1965 Quit date: 03/17/1996 Years since quittin.1 Smokeless tobacco: Never Tobacco comments: Parents smoked in childhood home. Vaping Use Vaping Use: Never used Substance Use Topics Alcohol use: Yes Alcohol/week: 1.0 standard drink of alcohol Types: 1 Glasses of Wine (5oz) per week Comment: Socially Drug use: No REVIEW OF SYSTEMS GENERAL: No weight loss, malaise or fevers/chills HEENT: Negative for frequent or significant headaches, No changes in hearing or vision. NECK: Negative for lumps, goiter, pain and significant neck swelling RESPIRATORY: Negative for cough, hemoptysis, wheezing, dyspnea or shortness of breath CARDIOVASCULAR: Negative for chest pain, leg swelling, orthopnea, or palpitations GI: + Diarrhea : No history of dysuria, frequency or incontinence MUSCULOSKELETAL: Negative for joint pain or swelling. SKIN: Negative for lesions, rash, and itching ENDOCRINE: Negative for cold or heat intolerance, polyuria, polydipsia and goiter NEURO: No history of headaches, syncope, paralysis, seizures or tremors MOOD: Negative for depression, anxiety, or suicidal ideation. EXAM: BP 120/84 Pulse 79 Resp 16 Wt 79.4 kg (175 lb) SpO2 96% BMI 29.84 kg/m PHYSICAL EXAM: General Appearance: Well appearing, alert, in no acute distress, well-hydrated, well nourished. Skin: Skin color, texture, turgor normal, no suspicious rashes or lesions. Head: Normocephalic, no masses, lesions, tenderness or abnormalities. Eyes: Anicteric sclera. Extraocular movements are intact. Lungs: Lungs clear to auscultation. No wheezing, rhonchi, rales. Heart: RRR without murmur, gallop, or rubs. No ectopy. Abdomen: Abdomen soft, non-tender. Bowel sounds hyperactive. No masses, organomegaly. Extremities: No deformities, edema, skin discoloration, clubbing or cyanosis. Good capillary refill. Peripheral Pulses: Normal, Capillary refill <2secs, strong peripheral pulses, Pulses palpable. Neurologic: Gait normal. Sensation grossly intact. ASSESSMENT/PLAN: 1. Viral gastroenteritis - ICD9: 008.8, ICD10: A08.4 - Symptoms consistent with viral gastroenteritis. - Continue supportive care at home. - Eat a bland diet and stay well-hydrated. - If diarrhea does not improve may need stool studies completed. Follow-up if no improvement. Sindhu Quintana APRN.GLORIA This note was partially generated using Buzzilla voice recognition system. Note was reviewed for accuracy. There may be minor misspellings or grammar miscues with Buzzilla voice recognition. documented in this encounter [facility] 02-27-2023 Miscellaneous Notes Patient has been identified by name and date of : Yes, Patient phones for refill(s): Requested Prescriptions Pending Prescriptions Disp Refills montelukast (SINGULAIR) 10 mg tablet 90 tablet 3 Sig: Take 1 tablet by mouth once daily. ezetimibe (ZETIA) 10 mg tablet 90 tablet 3 Sig: Take 1 tablet by mouth once daily. Date of last office visit in primary care: 10/02/2022 Date of next office visit in primary care: none found Please advise. Thank you. Kisha Velasquez LPN. documented in this encounter [facility] 01-23-2023 Note HNO ID: [id number] Author: Pollo Zhang AUD Service: ? Author Type: Fleet Sales Manager Type: Progress Notes Filed: 01/23/2023 6:01 PM Note Text: [facility] AUDIOLOGIC EVALUATION REPORT Name: Twan Okeefe [facility]#: [id number] Date of Service: 01/23/2023 Date of : 1945 Age: [age] year old Referred by: Melissa Munoz MD [id number] [facility] [address] Referred for: Evaluation of suspected change in hearing, tinnitus, or balance. Referral documented: In an order in [facility] Patient's major complaints: Reduced hearing in both ears Twan Okeefe is a 77 year old female who was referred for a hearing test because of concerns for early onset dementia. She denied hearing loss, pain, pressure, tinnitus, and dizziness. Twan Okeefe was seen for an initial audiologic evaluation. See [facility] Audiogram for additional reported history and symptoms. Risk of Falls Documentation for over 65 years old: No history of falls reported so minimal to no risk IMPRESSIONS RIGHT EAR: Sensorineural hearing loss consistent with presbycusis LEFT EAR: Sensorineural hearing loss consistent with presbycusis Comparison of today's results with previous test results : No previous results available AUDIOLOGIC EVALUATION Following is a brief interpretation of the obtained findings from the audiologic evaluation. Refer to the Auditory Test Record for complete audiometric results. The patient was counseled about the test findings and appropriate audiologic recommendations were made. SUMMARY: Audiogram can be viewed under procedures tab. OTOSCOPY RIGHT EAR: Otoscopic inspection revealed ear canal was clear with an identifiable cone of light. LEFT EAR: Otoscopic inspection revealed ear canal was clear with an identifiable cone of light. TYMPANOMETRY Description of procedure: This test is an objective evaluation of middle ear function. CPT code: 36872 RIGHT EAR: Positive pressure (+160 daPa) with normal TM compliance LEFT EAR: Normal ME function. ACOUSTIC REFLEXES Description of procedure: This test is an objective measure of auditory and facial nerve pathways. CPT code: 61224, 16301 RIGHT EAR PROBE EAR: (ipsi right stimulus ear; contralateral left stimulus ear): Acoustic Reflex Pattern Did not test Acoustic Reflex Decay (left stimulus ear): Did not test. LEFT EAR PROBE EAR: (ipsi left stimulus ear; contralateral right stimulus ear): Acoustic Reflex Pattern Did not test Acoustic Reflex Decay (right stimulus ear):Did not test. PURE TONE AUDIOMETRY AND SPEECH TESTING Description of procedure: This test is an objective evaluation hearing sensitivity via air and bone conduction and speech recognition testing. CPT code: 09672 RIGHT EAR: Hearing Sensitivity: Normal hearing sensitivity from 250-4000 Hz sloping from a mild to moderately severe unspecified loss from 1708-4119 Hz. Word Recognition Score: Excellent (90-100%). WRS is consistent with hearing sensitivity. Words were presented at 65 dB HL is above (greater than or equal to 60 dB HL) intensity level for average conversational speech. The NU-6 Ordered by Difficulty Word List (10 words) was used for testing. and Contralateral masking was used. LEFT EAR: Hearing Sensitivity: Normal hearing sensitivity from 250-2000 Hz sloping to a mild sensorineural loss at 4000 Hz and a moderate to moderately severe unspecified loss form 8605-4670 Hz. Word Recognition Score: Excellent (90-100%). WRS is consistent with hearing sensitivity. Words were presented at 65 dB HL which is above (greater than or equal to 60 dB HL) intensity level for average conversational speech. The NU-6 Ordered by Difficulty Word List (10 words) was used for testing. and Contralateral masking was used. RECOMMENDATIONS * Continue medical follow-up with neurologist. * Re-evaluation as medically indicated. * Return if a change in hearing is noted. Ciarra Ayers BA, AuD Student Lauren Duarte, ROBBIE-A Testing was obtained under the direct supervision of Lauren Duarte CCC/Olinda FLOWERS Abbrev- iation Definition Degree of hearing sensitivity dB range WNL within normal limits WNL 0 - 20 SNHL sensorineural hearing loss Mild 20-40 CHL conductive hearing loss Moderate 40-55 MHL mixed hearing loss Moderately-Severe 55-70 WRS word recognition score Severe 70-90 ME middle ear Profound 90 + TM tympanic membrane [facility] 01-23-2023 History of Present illness Narrative [facility] AUDIOLOGIC EVALUATION REPORT Name: Twan Okeefe CC#: [id number] Date of Service: 01/23/2023 Date of : 1945 Age: [age] year old Referred by: Melissa Munoz MD [id number] [facility] [address] Referred for: Evaluation of suspected change in hearing, tinnitus, or balance. Referral documented: In an order in [facility] Patient's major complaints: Reduced hearing in both ears Twan Okeefe is a 77 year old female who was referred for a hearing test because of concerns for early onset dementia. She denied hearing loss, pain, pressure, tinnitus, and dizziness. Twan Okeefe was seen for an initial audiologic evaluation. See [facility] Audiogram for additional reported history and symptoms. Risk of Falls Documentation for over 65 years old: No history of falls reported so minimal to no risk IMPRESSIONS RIGHT EAR: Sensorineural hearing loss consistent with presbycusis LEFT EAR: Sensorineural hearing loss consistent with presbycusis Comparison of today's results with previous test results : No previous results available AUDIOLOGIC EVALUATION Following is a brief interpretation of the obtained findings from the audiologic evaluation. Refer to the Auditory Test Record for complete audiometric results. The patient was counseled about the test findings and appropriate audiologic recommendations were made. SUMMARY: Audiogram can be viewed under procedures tab. OTOSCOPY RIGHT EAR: Otoscopic inspection revealed ear canal was clear with an identifiable cone of light. LEFT EAR: Otoscopic inspection revealed ear canal was clear with an identifiable cone of light. TYMPANOMETRY Description of procedure: This test is an objective evaluation of middle ear function. CPT code: 59408 RIGHT EAR: Positive pressure (+160 daPa) with normal TM compliance LEFT EAR: Normal ME function. ACOUSTIC REFLEXES Description of procedure: This test is an objective measure of auditory and facial nerve pathways. CPT code: 83397, 06344 RIGHT EAR PROBE EAR: (ipsi right stimulus ear; contralateral left stimulus ear): Acoustic Reflex Pattern Did not test Acoustic Reflex Decay (left stimulus ear): Did not test. LEFT EAR PROBE EAR: (ipsi left stimulus ear; contralateral right stimulus ear): Acoustic Reflex Pattern Did not test Acoustic Reflex Decay (right stimulus ear):Did not test. PURE TONE AUDIOMETRY AND SPEECH TESTING Description of procedure: This test is an objective evaluation hearing sensitivity via air and bone conduction and speech recognition testing. CPT code: 32881 RIGHT EAR: Hearing Sensitivity: Normal hearing sensitivity from 250-4000 Hz sloping from a mild to moderately severe unspecified loss from 5218-6015 Hz. Word Recognition Score: Excellent (90-100%). WRS is consistent with hearing sensitivity. Words were presented at 65 dB HL is above (greater than or equal to 60 dB HL) intensity level for average conversational speech. The NU-6 Ordered by Difficulty Word List (10 words) was used for testing. and Contralateral masking was used. LEFT EAR: Hearing Sensitivity: Normal hearing sensitivity from 250-2000 Hz sloping to a mild sensorineural loss at 4000 Hz and a moderate to moderately severe unspecified loss form 9437-8105 Hz. Word Recognition Score: Excellent (90-100%). WRS is consistent with hearing sensitivity. Words were presented at 65 dB HL which is above (greater than or equal to 60 dB HL) intensity level for average conversational speech. The NU-6 Ordered by Difficulty Word List (10 words) was used for testing. and Contralateral masking was used. RECOMMENDATIONS * Continue medical follow-up with neurologist. * Re-evaluation as medically indicated. * Return if a change in hearing is noted. Ciarra Ayers BA, AuD Student Lauren Duarte CCC-Olinda Testing was obtained under the direct supervision of Lauren Duarte CCC/Olinda FLOWERS Abbrev- iation Definition Degree of hearing sensitivity dB range WNL within normal limits WNL 0 - 20 SNHL sensorineural hearing loss Mild 20-40 CHL conductive hearing loss Moderate 40-55 MHL mixed hearing loss Moderately-Severe 55-70 WRS word recognition score Severe 70-90 ME middle ear Profound 90 + TM tympanic membrane documented in this encounter [facility] 12-13-2022 Note HNO ID: [id number] Author: Melissa Munoz MD Service: ? Author Type: Physician Type: Progress Notes Filed: 12/13/2022 12:03 PM Note Text: SECTION OF SKULL BASE SURGERY MINIMALLY INVASIVE CRANIAL BASE AND PITUITARY SURGERY PROGRAM [facility], [facility] CC: Patient Care Team: Amado Freeman DO as PCP - General (Family Medicine) Lynn Sheth MD ASSESSMENT/PLAN: Twan Okeefe presents with incidental asymptomatic left lateral petrous/jugular foramen extra-axial mass. I believe this is most likely represents a meningioma although the possibility that this could represent another type of tumor was also discussed. The natural history of meningiomas was discussed in detail. Treatment options were discussed in detail including observation, radiation treatment/radiosurgery, or surgery. I do not believe this is related to her memory loss. I think treatment would be reasonable due to size, as we may still have a window for fGKRS, and surgery would be feasible as well. However, because she has no symptoms and age, we agreed for initial conservative approach with repeat MRI brain wwo contrast in 5-6 months and in person or virtual visit, sooner if she develops any hearing loss, vertigo, swallowing difficulty, gait imbalance. I have reviewed the history AND physical obtained and documented by the nurse who scribed on my behalf. I examined the patient and evaluated all available films and pertinent documents. This note accurately reflects work and decisions made by me. I spent approximately 45 minutes of total time for evaluation and management services provided on the date of the encounter which included preparing to see the patient, [id number] patient care, completing clinical documentation, performing a medically appropriate examination, counseling and educating the patient/family/caregiver, communicating with other HCPs, independently interpreting results and care coordination. Melissa Munoz MD Staff, Skull Base AND Cerebrovascular Surgery Department of Neurological Surgery [facility] The patient is referred by Dr. Sheth for neurosurgical evaluation. Final recommendations will be communicated back to the requesting physician by way of the shared medical records, or letters to requesting physician via US Mail. Chief Complaint: memory loss History of Present Illness: Patient is accompanied by her . The patient is a 77 year old female who presents with incidentally discovered L extra-axial mass at left cerebellopontine angle with extension into jugular foramen concerning for potential meningioma. She is currently endorsing some short-term memory loss. She does not endorse any tinnitus, hearing loss, vertigo, dizziness, feeling off-balance, difficulties with swallowing, of facial twitching. Past Medical History: PAST MEDICAL HISTORY Diagnosis Date Acute gastritis without mention of hemorrhage Asthma in adult, mild persistent, uncomplicated Colon polyps Diverticulosis of colon (without mention of hemorrhage) Glaucoma suspect Hemangioma of unspecified site HEPATIC Hypercholesteremia refuses statins Hypothyroidism Endo: Dr. 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 LIG/TRNSXJ FLP TUBE ABDL/VAG APPR UNI/BI THYROIDECTOMY TOTAL/COMPLETE 07/2008 multinodular goiter TONSILLECTOMY PRIMARY/SECONDARY Family History: FAMILY HISTORY Problem Relation Age of Onset Alzheimer's Disease Mother passed 2003 Cancer Father of the lungs, from this Cancer Sister stomach passed from this 03/22/05 Diabetes Sister Hypertension Sister Lipids Sister Social History: Social History Tobacco Use Smoking status: Former Packs/day: 0.50 Years: 30.00 Additional pack years: 0.00 Total pack years: 15.00 Types: Cigarettes Start date: 11/21/1965 Quit date: 03/17/1996 Years since quittin.7 Smokeless tobacco: Never Tobacco comments: Parents smoked in childhood home. Vaping Use Vaping Use: Never used Substance Use Topics Alcohol use: Yes Alcohol/week: 2.5 standard drinks of alcohol Types: 1 Glasses of Wine (5oz) per week Comment: Socially Drug use: No Medications: Current Outpatient Medications on File Prior to Visit Medication Sig dexAMETHasone (PF) ophthalmic solution 0.1% (IP-CPD) Instill 1 drop into ea (more content not included)... [facility] 12-13-2022 Instructions Melissa Munoz MD - 12/13/2022 11:48 AM EDT We see an incidental tumor at the base of the skull on the left. This is not related to your short term memory loss in my opinion. I believe this is most likely represents a meningioma although the possibility that this could represent another type of tumor was also discussed. The natural history of meningiomas was discussed in detail. Treatment options were discussed in detail including observation, radiation treatment/radiosurgery, or surgery. Overall, we agreed for initial observation with repeat MRI brain wwo contrast in Apr-May 2022 and also new audiogram. If you develop new left hearing loss, vertigo, swallowing difficulty, significant balance problems, let us know and we can do MRI sooner. Melissa Munoz MD Staff, Skull Base & Cerebrovascular Surgery Department of Neurological Surgery [facility] documented in this encounter [facility] 12-13-2022 History of Present illness Narrative Images from the original note were not included. SECTION OF SKULL BASE SURGERY MINIMALLY INVASIVE CRANIAL BASE & PITUITARY SURGERY PROGRAM [facility] & [facility], [facility] CC: Patient Care Team: Amado Freeman DO as PCP - General (Family Medicine) Lynn Sheth MD ASSESSMENT/PLAN: Twan Okeefe presents with incidental asymptomatic left lateral petrous/jugular foramen extra-axial mass. I believe this is most likely represents a meningioma although the possibility that this could represent another type of tumor was also discussed. The natural history of meningiomas was discussed in detail. Treatment options were discussed in detail including observation, radiation treatment/radiosurgery, or surgery. I do not believe this is related to her memory loss. I think treatment would be reasonable due to size, as we may still have a window for fGKRS, and surgery would be feasible as well. However, because she has no symptoms and age, we agreed for initial conservative approach with repeat MRI brain wwo contrast in 5-6 months and in person or virtual visit, sooner if she develops any hearing loss, vertigo, swallowing difficulty, gait imbalance. I have reviewed the history & physical obtained and documented by the nurse who scribed on my behalf. I examined the patient and evaluated all available films and pertinent documents. This note accurately reflects work and decisions made by me. I spent approximately 45 minutes of total time for evaluation and management services provided on the date of the encounter which included preparing to see the patient, [id number] patient care, completing clinical documentation, performing a medically appropriate examination, counseling and educating the patient/family/caregiver, communicating with other HCPs, independently interpreting results and care coordination. Melissa Munoz MD Staff, Skull Base & Cerebrovascular Surgery Department of Neurological Surgery [facility] The patient is referred by Dr. Sheth for neurosurgical evaluation. Final recommendations will be communicated back to the requesting physician by way of the shared medical records, or letters to requesting physician via [place] Mail. Chief Complaint: memory loss History of Present Illness: Patient is accompanied by her . The patient is a 77 year old female who presents with incidentally discovered L extra-axial mass at left cerebellopontine angle with extension into jugular foramen concerning for potential meningioma. She is currently endorsing some short-term memory loss. She does not endorse any tinnitus, hearing loss, vertigo, dizziness, feeling off-balance, difficulties with swallowing, of facial twitching. Past Medical History: PAST MEDICAL HISTORY Diagnosis Date Acute gastritis without mention of hemorrhage Asthma in adult, mild persistent, uncomplicated Colon polyps Diverticulosis of colon (without mention of hemorrhage) Glaucoma suspect Hemangioma of unspecified site HEPATIC Hypercholesteremia refuses statins Hypothyroidism Endo: Dr. 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 LIG/TRNSXJ FLP TUBE ABDL/VAG APPR UNI/BI THYROIDECTOMY TOTAL/COMPLETE 07/2008 multinodular goiter TONSILLECTOMY PRIMARY/SECONDARY <AGE 14 Family History: FAMILY HISTORY Problem Relation Age of Onset Alzheimer's Disease Mother passed 2003 Cancer Father of the lungs, from this Cancer Sister stomach passed from this 03/22/05 Diabetes Sister Hypertension Sister Lipids Sister Social History: Social History Tobacco Use Smoking status: Former Packs/day: 0.50 Years: 30.00 Additional pack years: 0.00 Total pack years: 15.00 Types: Cigarettes Start date: 11/21/1965 Quit date: 03/17/1996 Years since quittin.7 Smokeless tobacco: Never Tobacco comments: Parents smoked in childhood home. Vaping Use Vaping Use: Never used Substance Use Topics Alcohol use: Yes Alcohol/week: 2.5 standard drinks of alcohol Types: 1 Glasses of Wine (5oz) per week Comment: Socially Drug use: No Medications: Current Outpatient Medications on File Prior to Visit Medication Sig dexAMETHasone (PF) ophthalmic solution 0.1% (IP-CPD) Instill 1 drop into each ear canal twice daily until resolution of eczema. Then use as needed for flare-ups. levothyroxine (SYNTHROID) 150 mcg tablet TAKE 1 TABLET BY MOUTH ONCE DAILY ON EMPTY STOMACH FOR THYROID. ketoconazole (NIZORAL) 2 % shampoo Apply to affected area once daily as needed. fluticasone (FLOVENT HFA) 44 mcg/actuation inhaler Inhale 2 Puffs as instructed twice daily. montelukast (SINGULAIR) 10 mg tablet Take 1 tablet by mouth once daily. triamcinolone acetonide (KENALOG) 0.1 % cream Apply to affected area twice daily. esomeprazole (NEXIUM) 20 mg capsule TAKE 1 CAPSULE EVERY DAY 1/2 HOUR BEFORE BREAKFAST ezetimibe (ZETIA) 10 mg tablet Take 1 tablet by mouth once daily. CHOLECALCIFEROL, VITAMIN D3, (VITAMIN D3 ORAL) Take by mouth. VITAMIN B COMPLEX (B COMPLEX ORAL) Take by mouth once daily. CALCIUM 500 WITH VITAMIN D 500 MG-125 UNIT TAB Take one(1) tablet three times daily. MULTIVITAMIN ORAL TAB Take one(1) tablet daily. No current facility-administered medications on file prior to visit. Allergies: ALLERGIES Allergen Reactions Iodine Rash questionable Naprosyn [Naproxen] Shortness of Breath Sulfa (Sulfonamide * Rash Significant rash Physical Examination: BP 185/68 Pulse 66 Temp 36.4 C (97.6 F) (Oral) Resp 18 Ht 163.1 cm (5' 4.21 ) Wt 81.6 kg (179 lb 14.4 oz) SpO2 100% BMI 30.68 kg/m Well developed, well nourished Awake, alert, conversant Speech: Normal fluency and comprehension 2nd cranial nerve: Full visual trejo 3rd, 4th, and 6th cranial nerves: Pupils equally round and reactive to light, extraocular movements intact without nystagmus or subjective diplopia 5th cranial nerve: V1-3 intact to light touch bilaterally 7th cranial nerve: Facial muscles full and symmetric bilaterally 8th cranial nerve: hearing intact to finger rub bilaterally 9th cranial nerve: gag reflex test deferred 10th cranial nerve: Palate elevates symmetrically and uvula in the midline 11th cranial nerve: shoulder shrug 5/5 bilaterally 12th cranial nerve: tongue protrudes in the midline Motors: Normal muscle tone, 5/5 strength throughout without pronator drift Sensation: Intact to light touch in all extremities Coordination: no dysmetria on fingers-nose testing bilaterally Gait: able to stand and ambulate independently with normal gait Data Review: Imaging: IMPRESSION: Large extra-axial mass centered at the left cerebellopontine angle with component extending to the left jugular foramen and associated mass effect, imaging features most suggestive of meningioma, as detailed above. Nonspecific small foci of high T2 and FLAIR signal involving the white matter, likely representing mild chronic microvascular ischemic changes. Fluid in the mastoid air cells. documented in this encounter [facility] 12-13-2022 Nurse Note Additional intake questions: Has the patient had fever, nausea, vomiting, diarrhea, constipation, fatigue for > 1 week? No Does the patient have a decreased appetite? No Does patient want to see a Electron Beam Welder Setter? No (yes to any of above refer patient to schedulers for dietitian appointment) ) Does patient have any new or increased numbness or tingling of extremities? No Is patient interested in fertility information? No Does patient need any prescription refills? No Does patient have an advanced directive in place? Yes, no copy found in [facility] Patient referred to [facility] Electronically Signed By: Kalpana Bennett MA documented in this encounter [facility] 12-02-2022 Miscellaneous Notes [place] informed. OK for verbal prescription. Thank you, Polina Lakhani APRN.GATE PERSON [place] with [facility] pharmacy calls to say they don't do the compound prescriptions for eye drops bc they are a non-sterile pharmacy. They have the eye drops commercially available would that be ok? Pharmacist said they wouldn't be preservative free. Please call Washington back at [phone] with verbal ok to fill prescription. Katharina Mooney RN documented in this encounter [facility] 12-02-2022 Miscellaneous Notes The following approved medication requests have been transmitted electronically. Requested Prescriptions Signed Prescriptions Disp Refills dexAMETHasone (PF) ophthalmic solution 0.1% (IP-CPD) 15 mL 2 Sig: Instill 1 drop into each ear canal twice daily until resolution of eczema. Then use as needed for flare-ups. Authorizing Provider: POLINA LAKHANI APRN.GLORIA TC to patient who was given providers message below. Patient states she would like to just have the medication sent to [facility] pharmacy to avoid any difficulties with having it filled at [facility]. Patient states she is unsure if she has ever had it filled there before. Please review and advise. If provider agreeable to send to [facility], patient does not need a call back. Thank you. SANTHOSH Cardozo I have sent to [facility]. If this is a compounded medication, I am not sure that [facility] can fill this either. I believe the only compound pharmacy around here is [facility] but I am not positive. Has she had this filled before? Thank you, Polina Lakhani APRN.GATE PERSON The following approved medication requests have been transmitted electronically. Requested Prescriptions Signed Prescriptions Disp Refills dexAMETHasone (PF) ophthalmic solution 0.1% (IP-CPD) 15 mL 2 Sig: Instill 1 drop into each ear canal twice daily until resolution of eczema. Then use as needed for flare-ups. Authorizing Provider: POLINA LAKHANI APRN.GATE PERSON Patent returned call regarding message below. Requesting script be sent to [facility] Tae for 90 day script if possible. Script pended for review. Daily Reyes RN [facility] calls to let provider know they are unable to fill dexamethasone PF ophthalmic solution 0.1%.((IP-CPD) because they are not a compound pharmacy. Prescription has been cancelled on their end. Call placed to patient to notify and ask which pharmacy she would like prescription sent to. Please send prescription request to provider once patient returns call. Katharina Mooney RN documented in this encounter [facility] 11-27-2022 Note HNO ID: [id number] Author: Misti Arcos MD Service: ? Author Type: Physician Type: Progress Notes Filed: 11/27/2022 10:25 AM Note Text: [facility] New Patient Evaluation Date: November 27, 2022 Patient Name: Twan Okeefe The [facility] was asked by Dr. Freeman to evaluate Twan Okeefe. Our recommendations of care will be communicated by shared medical record. Reason for Evaluation/Chief complaint: memory problems Accompanied by: spouse --------- - SUBJECTIVE: HPI: Twan Okeefe is a 77 year old Left handed female who presents to the [facility] for an initial evaluation. Patient has been seen and referred by Dr. Amado Freeman. Patient has a pertinent PMHx significant for Hypothyroidism, Asthma, Gastritis. Today's visit: Short term memory loss noticeable for a year at the most. She is forgetting recent conversations and day. has to repeat often. She will ask the same questions within a few minutes. She reads and no language concerns. No word finding difficulties. She enjoys reading but sometimes does not remember what she read. Her mother had some form of dementia. She feels her symptoms are getting worse. does the grocery shopping and cooking now. She would forget an ingredient while cooking. She takes care of the house. She had MMSE completed which was In March. Mood: normal Neurobehavioral symptoms: normal Sleep: normal REVIEW OF SYSTEMS: Weight change/Appetite: no concerns Hearing: no change Vision: Glasses Constipation, Diarrhea: no Incontinence: no Chest pain: No Edema: No Dyspnea: No Falls/injuries/accidents: No NEURO: SEE HPI --------- - OUTPATIENT MEDICATIONS Current Outpatient Medications on File Prior to Visit Medication Sig levothyroxine (SYNTHROID) 150 mcg tablet TAKE 1 TABLET BY MOUTH ONCE DAILY ON EMPTY STOMACH FOR THYROID. montelukast (SINGULAIR) 10 mg tablet Take 1 tablet by mouth once daily. triamcinolone acetonide (KENALOG) 0.1 % cream Apply to affected area twice daily. ketoconazole (NIZORAL) 2 % shampoo Apply to affected area once daily as needed. esomeprazole (NEXIUM) 20 mg capsule TAKE 1 CAPSULE EVERY DAY 1/2 HOUR BEFORE BREAKFAST ezetimibe (ZETIA) 10 mg tablet Take 1 tablet by mouth once daily. fluticasone (FLOVENT HFA) 44 mcg/actuation inhaler Inhale 2 Puffs as instructed twice daily. dexAMETHasone (PF) ophthalmic solution 0.1% (IP-CPD) Instill 1 drop into each ear canal twice daily until resolution of eczema. Then use as needed for flare-ups. CHOLECALCIFEROL, VITAMIN D3, (VITAMIN D3 ORAL) Take by mouth. VITAMIN B COMPLEX (B COMPLEX ORAL) Take by mouth once daily. CALCIUM 500 WITH VITAMIN D 500 MG-125 UNIT TAB Take one(1) tablet three times daily. MULTIVITAMIN ORAL TAB Take one(1) tablet daily. No current facility-administered medications on file prior to visit. MEDICAL HISTORY PAST MEDICAL HISTORY Diagnosis Date Acute gastritis without mention of hemorrhage Asthma in adult, mild persistent, uncomplicated Colon polyps Diverticulosis of colon (without mention of hemorrhage) Glaucoma suspect Hemangioma of unspecified site HEPATIC Hypercholesteremia refuses statins Hypothyroidism Endo: Dr. 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 No significant alcohol abuse. No history of substance abuse. -Marital status: FAMILY HISTORY FAMILY HI (more content not included)... [facility] 11-27-2022 Instructions Misti Arcos MD - 11/27/2022 10:23 AM EDT PLAN: Hypothyroidism treatment to monitored closely and follow up with Dr. Freeman. Follow with neurosurgery for possible meningioma Will place referral for neuropsychological testing to better characterize his/her reported deficits and to establish a cognitive baseline General brain health measures discussed, including the importance of regular aerobic exercise Follow up with me after testing is complete. -Exercise 5 times a week, 30 minutes each day. -Mediterranean diet has been proven beneficial for memory impairment. -Maintain fixed sleep schedule - sleeping and waking up at the same time every day. -Engage in brain stimulating activities such as Sudoku puzzle and crossword -Learn stress reducing techniques -Close monitoring of other medical conditions Please refer to [email or web address] website. It provides evidence based education on diet, exercise and activities that have benefit for memory. To reach [facility]: For any questions or concerns, please call our offices at [phone]. You will be given a list of options. For appointments, please press option 1 For research or studies, press option 2 Providers office please press option 3, this will then direct you to our principal secretary who can be of further assistance. To reach your provider more easily, please feel free to use [employer]. If you are looking to make an appointment, please call [phone] or [phone]. documented in this encounter [facility] 11-27-2022 Nurse Note Twan Okeefe is a 77 year old year old left handed woman Accompanied by: spouse. Referral by: Amado Freeman [address] 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 [facility] Vital Signs: BP 139/69 Pulse 60 Wt 82.1 kg (181 lb 1.6 oz) BMI 31.09 kg/m documented in this encounter [facility] 11-27-2022 History of Present illness Narrative Images from the original note were not included. [facility] New Patient Evaluation Date: November 27, 2022 Patient Name: Twan COBBN: [id number] The [facility] was asked by Dr. Freeman to evaluate Twan Okeefe. Our recommendations of care will be communicated by shared medical record. Reason for Evaluation/Chief complaint: memory problems Accompanied by: spouse SUBJECTIVE: HPI: Twan Okeefe is a 77 year old Left handed female who presents to the [facility] for an initial evaluation. Patient has been seen and referred by Dr. Amado Freeman. Patient has a pertinent PMHx significant for Hypothyroidism, Asthma, Gastritis. Today's visit: Short term memory loss noticeable for a year at the most. She is forgetting recent conversations and day. has to repeat often. She will ask the same questions within a few minutes. She reads and no language concerns. No word finding difficulties. She enjoys reading but sometimes does not remember what she read. Her mother had some form of dementia. She feels her symptoms are getting worse. does the grocery shopping and cooking now. She would forget an ingredient while cooking. She takes care of the house. She had MMSE completed which was 28 In March. Mood: normal Neurobehavioral symptoms: normal Sleep: normal REVIEW OF SYSTEMS: Weight change/Appetite: no concerns Hearing: no change Vision: Glasses Constipation, Diarrhea: no Incontinence: no Chest pain: No Edema: No Dyspnea: No Falls/injuries/accidents: No NEURO: SEE HPI OUTPATIENT MEDICATIONS Current Outpatient Medications on File Prior to Visit Medication Sig levothyroxine (SYNTHROID) 150 mcg tablet TAKE 1 TABLET BY MOUTH ONCE DAILY ON EMPTY STOMACH FOR THYROID. montelukast (SINGULAIR) 10 mg tablet Take 1 tablet by mouth once daily. triamcinolone acetonide (KENALOG) 0.1 % cream Apply to affected area twice daily. ketoconazole (NIZORAL) 2 % shampoo Apply to affected area once daily as needed. esomeprazole (NEXIUM) 20 mg capsule TAKE 1 CAPSULE EVERY DAY 1/2 HOUR BEFORE BREAKFAST ezetimibe (ZETIA) 10 mg tablet Take 1 tablet by mouth once daily. fluticasone (FLOVENT HFA) 44 mcg/actuation inhaler Inhale 2 Puffs as instructed twice daily. dexAMETHasone (PF) ophthalmic solution 0.1% (IP-CPD) Instill 1 drop into each ear canal twice daily until resolution of eczema. Then use as needed for flare-ups. CHOLECALCIFEROL, VITAMIN D3, (VITAMIN D3 ORAL) Take by mouth. VITAMIN B COMPLEX (B COMPLEX ORAL) Take by mouth once daily. CALCIUM 500 WITH VITAMIN D 500 MG-125 UNIT TAB Take one(1) tablet three times daily. MULTIVITAMIN ORAL TAB Take one(1) tablet daily. No current facility-administered medications on file prior to visit. MEDICAL HISTORY PAST MEDICAL HISTORY Diagnosis Date Acute gastritis without mention of hemorrhage Asthma in adult, mild persistent, uncomplicated Colon polyps Diverticulosis of colon (without mention of hemorrhage) Glaucoma suspect Hemangioma of unspecified site HEPATIC Hypercholesteremia refuses statins Hypothyroidism Endo: Dr. 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 No significant alcohol abuse. No history of substance abuse. -Marital status: FAMILY HISTORY FAMILY HISTORY Problem Relation Age of Onset Alzheimer's Disease Mother passed 2003 Cancer Father of the lungs, from this Cancer Sister stomach passed from this 03/22/05 Diabetes Sister Hypertension Sister Lipids Sister No known family history of dementia. ALLERGIES ALLERGIES Allergen Reactions Iodine Rash questionable Naprosyn [Naproxen] Shortness of Breath Sulfa (Sulfonamide * Rash Significant rash OUTSIDE RECORDS: No outside records provided to review. INTERNAL RECORDS: The patient's electronic medical record was reviewed. The relevant details are summarized in this note. Functional Evaluation: B-ADLs: (I=independent,A=assistance,D=dep endent) ?Bathing: I , Dressing: I , Toileting: I , Transferring: I , Continence: I , Feeding: I I-ADLs: Transportation: I and limited driving, Medications: has been managing medication for a few months. She would get the pills confused, Handle Finances: always managed finances. OBJECTIVE: PHYSICAL EXAM: Vitals: BP 139/69 Pulse 60 Wt 82.1 kg (181 lb 1.6 oz) BMI 31.09 kg/m General appearance: Sitting upright. Appears stated age. No acute distress. Non-toxic appearing. No hypomimia. Neuro: Mental Status: Alert, oriented to person, place, and time. Follows commands. Answering questions appropriately. No dysarthria or hypophonia Saeid Cognitive Assessment (MoCA) Version 1 Total Score: 17/30 Visuospatial/Executive: 2/5 Namin/3 Attention: 4/6 Language: 2/3 Abstraction: 2/2 Delayed Recall: 0/5 Orientation: 4/6 Education less than or equal to 12th grade: +0 MoCA Past Scores MoCA 11/27/2022 MOCA TOTAL SCORE 17 out of 30 Visuospatial/ Executive 2 Naming 3 Attention 4 Language 2 Abstraction 2 Delayed Recall 0 Orientation 4 Education Level 0 Cranial Nerves: EOMI CN VII: Face symmetric, no ptosis or facial droop CN VIII: Auditory acuity intact CN IX/CN X: Normal palate elevation CN XI: Normal shoulder shrug CN XII: Normal tongue strength and range of motion; no deviation Motor Exam: No cog-wheeling. No rest tremor. No significant postural or intention tremor. No bradykinesia with finger tapping bilaterally. No abnormal movements, jerks. Strength 5/5 in UE's bilaterally. LE's 5/5 throughout as well. Sensory: Intact to light touch in all extremities. Pinprick, vibration, and proprioception not assessed. Coordination: FNF with no ataxia or dysmetria. Gait: Arises independently; normal posture; gait stable with normal stride length, rate, base and arm swing. IMAGING REVIEW: 11/15/2022 12:44 PM - Radiology, [place] In Impression IMPRESSION: Large extra-axial mass centered at the left cerebellopontine angle with component extending to the left jugular foramen and associated mass effect, imaging features most suggestive of meningioma, as detailed above. Nonspecific small foci of high T2 and FLAIR signal involving the white matter, likely representing mild chronic microvascular ischemic changes. Fluid in the mastoid air cells. LABS Hemoglobin A1C Date Value Ref Range Status 10/03/2022 5.5 4.3 - 5.6 % Final Comment: [place] [employer] guidelines indicate that patients with HgbA1c in the range 5.7-6.4% are at increased risk for development of diabetes, and intervention by lifestyle modification may be beneficial. HgbA1c greater or equal to 6.5% is considered diagnostic of diabetes. TSH Date Value Ref Range Status 10/03/2022 90.600 (H) 0.270 - 4.200 mIU/L Final Vitamin B12 Date Value Ref Range Status 10/03/2022 626 232 - 1,245 pg/mL Final Plan ASSESSMENT: Ms. Okeefe is a 77 year old FEMALE presents for memory testing. 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 MRI shows asymmetrical enlargement of right temporal horn and incidental finding of large presumed meningioma with some mass effect. Hypothyroidism s/p thyroid surgery with recent poorly controlled TSH. She was not taking the medication for some reason, ran out and did not inquire about a new prescription. She is on it now and ensures she takes it every day on empty stomach. This is likely affecting her memory as well. I would like to see if there is any improvement once TSH is better. In the meantime she needs NSG evaluation. I would like to do Neuropsychological testing but that can be delayed if needed based on neurosurgery plan. PLAN: Hypothyroidism treatment to monitored closely and follow up with Dr. Freeman. Follow with neurosurgery for possible meningioma Will place referral for neuropsychological testing to better characterize his/her reported deficits and to establish a cognitive baseline General brain health measures discussed, including the importance of regular aerobic exercise Follow up with me after testing is complete. I spent a total of 65 minutes on the date of the service which included preparing to see the patient, [id number] patient care, completing clinical documentation, obtaining and/or reviewing separately obtained history, performing a medically appropriate examination, counseling and educating the patient/family/caregiver, ordering medications, tests, or procedures, and communicating with other HCPs (not separately reported). Voice recognition software was used to compose this office note. Please excuse any unintended typographical errors. Misti Acros MD Geriatric Medicine [facility] 11/27/2022 9:14 AM CC: Referring Physician: Amado Freeman [address] [facility] [id number] PCP: Amado Freeman [address] [place] [address] Patient Entered Data: Patient-Reported 11/25/2022 Where are you currently living? Home / Private residence Are you using any community resources to help care for yourself? No Has your caregiver accompanied you today? No Did you receive help completing this questionnaire? No If you received help, could you have completed this questionnaire on your own? N/A - I did not receive any help Activities of Daily Living (ADL) No flowsheet data found. PROMIS-10 PROMIS 10 11/25/2022 In general, would you say your health is: Very good In general, would you say your quality of life is: Excellent In general, how would you rate your physical health? Very good In general, how would you rate your mental health, including your mood and your ability to think? Good In general, how would you rate your satisfaction with your social activities and relationships? Excellent To what extent are you able to carry out your everyday physical activities such as walking, climbing stairs, carrying groceries, or moving a chair? Completely In general, please rate how well you carry out your usual social activities and roles. (This includes activities at home, at work and in your community, and responsibilities as a parent, child, spouse, employee, friend, etc.) Very good How would you rate your pain on average? 0 - No Pain How would you rate your fatigue on average? Mild How often have you been bothered by emotional problems such as feeling anxious, depressed or irritable? Rarely PROMIS Adult Short Form-Global Health Score (Physical) 57.7 (Very Good) PROMIS Adult Short Form-Global Health Score (Mental) 56 (Excellent) PHQ-9 PHQ-9 All Questions 11/25/2022 10/02/2022 Little interest or pleasure in doing things 1 0 Feeling down, depressed, or hopeless 1 0 Trouble falling or staying asleep, or sleeping too much 0 - Feeling tired or having little energy 1 - Poor appetite or overeating 1 - Feeling bad about yourself - or that you are a failure or have let yourself or your family down 1 - Trouble concentrating on things, such as reading the newspaper or watching television 0 - Moving or speaking so slowly that other people could have noticed. Or the opposite - being so fidgety or restless that you have been moving around a lot more than usual 0 - Thoughts that you would be better off , or of hurting yourself in some way 0 - PHQ-9 Score 5 - (0-4) minimal depression (5-9) mild depression (10-14) moderate depression (15-19) moderately severe depression (20-27) severe depression Full History of PHQ-9 Scores PHQ-9 Score 11/25/2022 5 Sleep 11/25/2022 What is your average total sleep time per night over the past 4 weeks? 8 Hours What is your average total sleep time during the day over the past 4 weeks? 2 Hours Have you been diagnosed with sleep apnea? No Do you snore loudly? No Do you often feel sleepy, tired, or fatigued during the day? No Have you been told that you stop breathing during sleep? No Have you been told or are you being treated for high blood pressure? No Probability of moderate-severe sleep apnea (%) SAPS V2 32 (Sleep study not recommended) Insomnia Severity Index 11/25/2022 Difficulty falling asleep 0 Difficulty staying asleep 0 Problem waking up too early 0 Satisfied/dissatisfied with current sleep pattern 0 Sleep interferes with daily functions 0 Sleep problems noticeable to others 0 Worried/distressed about current sleep problems 0 Score 0 Caregiver-Reported No flowsheet data found. Dementia Severity Rating Scale (DSRS) No flowsheet data found. documented in this encounter [facility] 11-25-2022 Miscellaneous Notes Time Frame: MARTÍNEZ 1-2 weeks Provider: Tammy/ Anand/ Luciana Referring: Amado Freeman, DO Images in Epic Dx: Meningioma Patient: Twan Okeefe Address: Twan Okeefe [id number] [place] [id number] Per Triage: Twan Okeefe is a 77 year old female that requests evaluation of newly diagnosed extra-axial mass. She presented to her PCP 10/02/22 with complaints of short term memory loss (concerns from her ), prompting head imaging. Referred by: Amado Freeman DO Patient expectations: New Consult Tumor Specifics: Location: brain Previous Evaluations: MRI BRAIN w/wo contrast (11/15/22): IMPRESSION: Large extra-axial mass centered at the left cerebellopontine angle with component extending to the left jugular foramen and associated mass effect, imaging features most suggestive of meningioma, as detailed above. Nonspecific small foci of high T2 and FLAIR signal involving the white matter, likely representing mild chronic microvascular ischemic changes. Fluid in the mastoid air cells. CT brain (10/16/22): IMPRESSION: Noncontrast CT imaging findings suggestive of extra-axial mass lesion, likely meningioma, in the left posterior fossa, as detailed above. Follow-up MRI with and without contrast would be of benefit for further assessment. Fluid in the right mastoid air cells. Linsey Velasco APRN.GATE PERSON November 25, 2022 Order Information Date and Time Department Ordering Authorizing 11/25/2022 9:18 AM [facility] Nicole Louise Devon S Order Providers Authorizing Provider Encounter Provider Lynn Sheth MD Swetlik, Carol E, MD Future Order Information Expires 11/25/23 Associated Diagnoses Meningioma (HCC) [D32.9] Reason for Exam Priority: Routine Dx: Meningioma (HCC) [D32.9 (ICD-10-CM)] Order Questions Question Answer [facility] Epic access? Yes Priority and Order Details Priority Class Routine Aurelia Internal Referral documented in this encounter [facility] 11-19-2022 Miscellaneous Notes Patient Edmundo returned call and went over results, notes from Dr Freeman with understanding. Assisted with transfer to a institutional aide to get Neurosurgery appt set up. Message left to return call. Please inform patient that MRI of her brain shows results as below IMPRESSION IMPRESSION: Large extra-axial mass centered at the left cerebellopontine angle with component extending to the left jugular foramen and associated mass effect, imaging features most suggestive of meningioma, as detailed above. Nonspecific small foci of high T2 and FLAIR signal involving the white matter, likely representing mild chronic microvascular ischemic changes I would like her to follow up with Neurosurgeon for opinion. This is likely a meningioma .Amado Freeman DO documented in this encounter [facility] 11-15-2022 Note HNO ID: [id number] Author: Emilie Mauricio CT Service: ? Author Type: Technologist Type: Progress Notes Filed: 11/15/2022 11:53 AM Note Text: Radiology Service Progress Note DATE OF SERVICE: November 15, 2022 TIME: 11:52 AM PATIENT IDENTITY VERIFICATION COMPLETED USING TWO (2) STANDARD IDENTIFIERS: Name and Date of confirmed by patient verbally and Name and Date of confirmed by identification band. FALL SCREENING: Has the patient had 2 falls in the last year or 1 fall with injury or currently using an Ambulatory Assistive Device (Walker, Cane, Wheelchair, Crutches, etc.)? No PATIENT GENDER DATA: Female. status: : No status: NO. PATIENT RELEVANT IMPLANT DATA REVIEWED: Yes ALLERGIES: Reviewed and unchanged CONTRAST ALLERGY: NO. EXAM: MRI - CONTRAST TYPE: GROUP II PERIPHERAL IV DATA: Ambulatory: A peripheral IV was started in the Left antecubital site with a Angio cath: 22 gauge. RADIOLOGY DEPARTMENT: MR; Exam(s) Completed: Head: Routine Brain SIGNATURE: OTTO Valentino PATIENT NAME: Twan Okeefe DATE: November 15, 2022 TIME: 11:52 AM [facility] 11-15-2022 History of Present illness Narrative Radiology Service Progress Note DATE OF SERVICE: November 15, 2022 TIME: 11:52 AM PATIENT IDENTITY VERIFICATION COMPLETED USING TWO (2) STANDARD IDENTIFIERS: Name and Date of confirmed by patient verbally and Name and Date of confirmed by identification band. FALL SCREENING: Has the patient had 2 falls in the last year or 1 fall with injury or currently using an Ambulatory Assistive Device (Walker, Cane, Wheelchair, Crutches, etc.)? No PATIENT GENDER DATA: Female. status: : No status: NO. PATIENT RELEVANT IMPLANT DATA REVIEWED: Yes ALLERGIES: Reviewed and unchanged CONTRAST ALLERGY: NO. EXAM: MRI - CONTRAST TYPE: GROUP II PERIPHERAL IV DATA: Ambulatory: A peripheral IV was started in the Left antecubital site with a Angio cath: 22 gauge. RADIOLOGY DEPARTMENT: MR; Exam(s) Completed: Head: Routine Brain SIGNATURE: OTTO Valentino PATIENT NAME: Twan J Anisha DATE: November 15, 2022 TIME: 11:52 AM documented in this encounter [facility] 11-13-2022 Note Patient Outreach (NS CAMN) TWAN OKEEFE ([id number]) 1945 F Date Time Provider Department 11/13/22 SCOTT MERRITT NSCAMN During your visit today, we recorded the following information about you: Scott Merritt PA-C 11/13/2022 11:00 AM Signed Actionable Finding: ct Brain completed 10/16/[address] imaging findings suggestive of extra-axial mass lesion, likely meningioma, in the left posterior fossa, as detailed above. Follow-up MRI with and without contrast would be of benefit for further assessment. Follow up MRI brain ordered 10/16/22 as recommended. Actionable Finding addressed. Scott Merritt PA-C Allergies As of Date: 11/13/2022 Noted Allergy Reaction IODINE 11/28/2004 2 - Rash Comments: questionable NAPROSYN (NAPROXEN) 11/28/2004 12 - Shortness of Breath SULFA (SULFONAMIDE ANTIBIOTICS) 09/10/2021 2 - Rash Comments: Significant rash Date Reviewed: 10/02/2022 Reviewed by: Scott Wilson LPN - Fully Assessed Prescriptions as of 11/13/2022 - levothyroxine (SYNTHROID) 150 mcg tablet TAKE 1 TABLET BY MOUTH ONCE DAILY ON EMPTY STOMACH FOR THYROID. - montelukast (SINGULAIR) 10 mg tablet Take 1 tablet by mouth once daily. - triamcinolone acetonide (KENALOG) 0.1 % cream Apply to affected area twice daily. - ketoconazole (NIZORAL) 2 % shampoo Apply to affected area once daily as needed. - esomeprazole (NEXIUM) 20 mg capsule TAKE 1 CAPSULE EVERY DAY 1/2 HOUR BEFORE BREAKFAST - ezetimibe (ZETIA) 10 mg tablet Take 1 tablet by mouth once daily. - fluticasone (FLOVENT HFA) 44 mcg/actuation inhaler Inhale 2 Puffs as instructed twice daily. - dexAMETHasone (PF) ophthalmic solution 0.1% (IP-CPD) Instill 1 drop into each ear canal twice daily until resolution of eczema. Then use as needed for flare-ups. - CHOLECALCIFEROL, VITAMIN D3, (VITAMIN D3 ORAL) Take by mouth. - VITAMIN B COMPLEX (B COMPLEX ORAL) Take by mouth once daily. - CALCIUM 500 WITH VITAMIN D 500 MG-125 UNIT TAB Take one(1) tablet three times daily. - MULTIVITAMIN ORAL TAB Take one(1) tablet daily. Meds Comments as of 06/06/2015: Problem List As Of Date 11/13/2022 Noted Resolved Goiter, unspecified [E04.9] 05/30/2011 Asthma [J45.909] BENIGN NEOPLASM LG BOWEL [D12.6] DIVERTICULOSIS OF COLON W/O BLEED [K57.30] INT HEMORRHOID W/O COMPL [K64.8] ACUTE GASTRITIS W/O HEMORRHAGE [K29.00] 10/23/2005 Hypothyroidism [E03.9] Screening for unspecified condition [Z13.9] 06/30/2014 Dysphagia, unspecified(787.20) [R13.10] 06/30/2014 Colon polyps [K63.5] Mild intermittent asthma without complication [*06/24/2016 Scalp psoriasis [L40.9] 06/24/2016 Right hip pain [M25.551] 11/26/2017 Asthma in adult, mild persistent, uncomplicated* Dermatochalasis of both upper eyelids [H02.831,*01/19/2021 01/19/2021 Short-term memory loss [R41.3] 10/02/2022 Hyperglycemia [R73.9] 10/02/2022 Acute otitis media, right [H66.91] 10/02/2022 Dyslipidemia [E78.5] 10/02/2022 Encounter Status:Closed by SCOTT MERRITT on 11/13/22 [facility] 11-13-2022 Note HNO ID: [id number] Author: Scott Merritt PA-C Service: ? Author Type: Physician Disc Jockey Type: Progress Notes Filed: 11/13/2022 11:00 AM Note Text: Actionable Finding: ct Brain completed 10/16/[address] imaging findings suggestive of extra-axial mass lesion, likely meningioma, in the left posterior fossa, as detailed above. Follow-up MRI with and without contrast would be of benefit for further assessment. Follow up MRI brain ordered 10/16/22 as recommended. Actionable Finding addressed. Scott Merritt PA-C [facility] 11-13-2022 History of Present illness Narrative Actionable Finding: ct Brain completed 10/16/[address] imaging findings suggestive of extra-axial mass lesion, likely meningioma, in the left posterior fossa, as detailed above. Follow-up MRI with and without contrast would be of benefit for further assessment. Follow up MRI brain ordered 10/16/22 as recommended. Actionable Finding addressed. Scott Merritt PA-C documented in this encounter [facility] 10-16-2022 Note HNO ID: [id number] Author: Lynette Gutierrez RT(R) Service: ? Author Type: Supervisor Extruding Department Type: Progress Notes Filed: 10/16/2022 11:20 AM Note Text: Radiology Service Progress Note PATIENT NAME: Twan Okeefe DATE OF SERVICE: October 16, 2022 TIME: 11:20 AM PATIENT IDENTITY VERIFICATION COMPLETED USING TWO (2) IDENTIFIERS: Name and Date of confirmed by patient verbally. FALL SCREENING: Has the patient had 2 falls in the last year or 1 fall with injury or currently using an Ambulatory Assistive Device (Walker, Cane, Wheelchair, Crutches, etc.)? No PATIENT GENDER DATA: Female. status: : No status: NO. PATIENT RELEVANT IMPLANT DATA REVIEWED: Yes RADIOLOGY DEPARTMENT: CT; Exam(s) Completed: Brain PERIPHERAL IV DATA: Not applicable SIGNED BY: RT Ness(Joseline) October 16, 2022 11:20 AM [facility] 10-16-2022 History of Present illness Narrative Radiology Service Progress Note PATIENT NAME: Twan Okeefe DATE OF SERVICE: October 16, 2022 TIME: 11:20 AM PATIENT IDENTITY VERIFICATION COMPLETED USING TWO (2) IDENTIFIERS: Name and Date of confirmed by patient verbally. FALL SCREENING: Has the patient had 2 falls in the last year or 1 fall with injury or currently using an Ambulatory Assistive Device (Walker, Cane, Wheelchair, Crutches, etc.)? No PATIENT GENDER DATA: Female. status: : No status: NO. PATIENT RELEVANT IMPLANT DATA REVIEWED: Yes RADIOLOGY DEPARTMENT: CT; Exam(s) Completed: Brain PERIPHERAL IV DATA: Not applicable SIGNED BY: RT Ness(Joseline) October 16, 2022 11:20 AM documented in this encounter [facility] 10-10-2022 Miscellaneous Notes Patient's returned call. He and his are unsure of how long she has not been taking the medication. He can't find a recent prescription bottle and he checked with [facility] and it was never filled there in the past. Neither of them know for certain the length of time she has been off of Levothyroxine. Jennifer Koroma, RN Spoke with Patient. Patient is unsure if she is taking or not taking medication. Will have call back when he gets home. Do we have any idea how long she has been out of it? Sometimes if it has been a while, I will start a little lower and bring her back up slowly. Spoke with pt waiting while she and her went through medicine cabinet she states ''oh I guess I have none and have not been taking it. ''So she will need a script called to [facility] here in town. She slept in and has not eaten as of yet states if called in she will go get it and start taking today. Explained how to take the medicine she kept repeating it to me and so her wrote it down. He states this would explain a lot of things lately. If could be called in he will go get it and make sure she takes it. Explained Dr. Freeman is out would send to call specialist and see if he would do this for her. Please inform patient that her thyroid labs are dangerously abnormal. Her TSH is very high in the 90s, free t3 is extremeily low and free t4 is extremely low. Is she taking her thyroid medication levothyroxine? What does is she taking? Is she taking it is AM at least 30 min before eating food- this is recommended? Dose needs to be adjusted up a lot if she is actually taking levothyroxine. If she isn't taking it, she must immediately start again. This is likely contributing to her memory concerns. Amado Freeman DO documented in this encounter [facility] 10-02-2022 Note HNO ID: [id number] Author: Amado Freeman DO Service: ? Author Type: Physician Type: Progress Notes Filed: 10/02/2022 12:25 PM Note Text: CC: Twan Okeefe is a 76 year old female who presents to the office for follow up HPI: She states that she was seen by Jeanette Sargent CNP in Mar. At that time Has been forgetting things such as a short term conversation or plans that have been made. Mostly just little things. Will remember and correct herself. has some concern. Has increased over the last 6 months. Mother had dementia that started about this ago. She had MMSE completed which was 28/30 score and had labs obtained but hasn't seen specialist. Denies any new tremors or dizziness/LH, no edema, no chest pain or pressure, no head injuries. States that her Edmundo has noticed concerns with her short term memory / forgetfulness. No word finding difficulty or speech changes. No weakness in limbs or fevers or chills or paresthesias. Hypothyroidism, states that she is taking her levothyroxine 150 mcg a day. Labs were abnormal in Mar. Hasn't had labs rechecked yet. URI symptoms for the last week which have mostly resolved other than right ear pressure and discomfort and difficulty with decreased hearing, no fevers or chills. + sick contacts PAST MEDICAL HISTORY Diagnosis Date Acute gastritis without mention of hemorrhage Asthma in adult, mild persistent, uncomplicated Colon polyps Diverticulosis of colon (without mention of hemorrhage) Glaucoma suspect Hemangioma of unspecified site HEPATIC Hypercholesteremia refuses statins Hypothyroidism Endo: Dr. 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 triamcinolone acetonide (KENALOG) 0.1 % cream Apply to affected area twice daily. ketoconazole (NIZORAL) 2 % shampoo Apply to affected area once daily as needed. esomeprazole (NEXIUM) 20 mg capsule TAKE 1 CAPSULE EVERY DAY 1/2 HOUR BEFORE BREAKFAST ezetimibe (ZETIA) 10 mg tablet Take 1 tablet by mouth once daily. fluticasone (FLOVENT HFA) 44 mcg/actuation inhaler Inhale 2 Puffs as instructed twice daily. dexAMETHasone (PF) ophthalmic solution 0.1% (IP-CPD) Instill 1 drop into each ear canal twice daily until resolution of eczema. Then use as needed for flare-ups. levothyroxine (SYNTHROID) 150 mcg tablet TAKE 1 TABLET BY MOUTH ONCE DAILY ON EMPTY STOMACH FOR THYROID. CHOLECALCIFEROL, VITAMIN D3, (VITAMIN D3 ORAL) Take by mouth. VITAMIN B COMPLEX (B COMPLEX ORAL) Take by mouth once daily. CALCIUM 500 WITH VITAMIN D 500 MG-125 UNIT TAB Take one(1) tablet three times daily. MULTIVITAMIN ORAL TAB Take one(1) tablet daily. amoxicillin-clavulanic acid (AUGMENTIN) 875-125 mg per tablet Take 1 tablet by mouth twice daily for 10 days. No current facility-administered medications for this visit. ALLERGIES Allergen Reactions Iodine Rash questionable Naprosyn [Naproxen] Shortness of Breath Sulfa (Sulfonamide * Rash Significant rash Social History Tobacco Use Smoking status: Former Packs/day: 0.50 Years: 30.00 Total pack years: 15.00 Types: Cigarettes Start date: 11/21/1965 Quit date: 03/17/1996 Years since quittin.5 Smokeless tobacco: Never Tobacco comments: Parents smoked in childhood home. Vaping Use Vaping Use: Never used Substance Use Topics Alcohol use: Yes Alcohol/week: 2.5 standard drinks of alcohol Types: 1 Glasses of Wine (5oz) per week Comment: Socially Drug use: No ROS: See HPI. PE: BP 124/70 Pulse 72 Temp (Src) 96.3 (Left Tympanic) Resp 16 Wt 184 lb (83.5kg) Gen: AANDOX3, NAD, non-toxic appearing HEENT: PERRLA, EOMs intact b/l, nares without drainage, pharynx without erythema, exudate, lesions, or drainage. Uvula midline. MMM, EAC and TM on left normal other than psoriasis skin changes. Right TM with erythema and bulging and EAC with psoriasis Neck: No LAD, no thyromegaly, no meningismus. CV: RRR, no murmur Lungs: CTA b/l, no wheezing Skin: No rashes, lesions, or wounds on exposed skin. Non focal neurologic exam, gait slightly unsteady, some difficulty with getting up onto examination table with turning self to sit, otherwise normal CN exam No edema, (more content not included)... [facility] 10-02-2022 History of Present illness Narrative CC: Twan Okeefe is a 76 year old female who presents to the office for follow up HPI: She states that she was seen by Jeanette Sargent CNP in Mar. At that time Has been forgetting things such as a short term conversation or plans that have been made. Mostly just little things. Will remember and correct herself. has some concern. Has increased over the last 6 months. Mother had dementia that started about this ago. She had MMSE completed which was 28/30 score and had labs obtained but hasn't seen specialist. Denies any new tremors or dizziness/LH, no edema, no chest pain or pressure, no head injuries. States that her Edmundo has noticed concerns with her short term memory / forgetfulness. No word finding difficulty or speech changes. No weakness in limbs or fevers or chills or paresthesias. Hypothyroidism, states that she is taking her levothyroxine 150 mcg a day. Labs were abnormal in Mar. Hasn't had labs rechecked yet. URI symptoms for the last week which have mostly resolved other than right ear pressure and discomfort and difficulty with decreased hearing, no fevers or chills. + sick contacts PAST MEDICAL HISTORY Diagnosis Date Acute gastritis without mention of hemorrhage Asthma in adult, mild persistent, uncomplicated Colon polyps Diverticulosis of colon (without mention of hemorrhage) Glaucoma suspect Hemangioma of unspecified site HEPATIC Hypercholesteremia refuses statins Hypothyroidism Endo: Dr. 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 triamcinolone acetonide (KENALOG) 0.1 % cream Apply to affected area twice daily. ketoconazole (NIZORAL) 2 % shampoo Apply to affected area once daily as needed. esomeprazole (NEXIUM) 20 mg capsule TAKE 1 CAPSULE EVERY DAY 1/2 HOUR BEFORE BREAKFAST ezetimibe (ZETIA) 10 mg tablet Take 1 tablet by mouth once daily. fluticasone (FLOVENT HFA) 44 mcg/actuation inhaler Inhale 2 Puffs as instructed twice daily. dexAMETHasone (PF) ophthalmic solution 0.1% (IP-CPD) Instill 1 drop into each ear canal twice daily until resolution of eczema. Then use as needed for flare-ups. levothyroxine (SYNTHROID) 150 mcg tablet TAKE 1 TABLET BY MOUTH ONCE DAILY ON EMPTY STOMACH FOR THYROID. CHOLECALCIFEROL, VITAMIN D3, (VITAMIN D3 ORAL) Take by mouth. VITAMIN B COMPLEX (B COMPLEX ORAL) Take by mouth once daily. CALCIUM 500 WITH VITAMIN D 500 MG-125 UNIT TAB Take one(1) tablet three times daily. MULTIVITAMIN ORAL TAB Take one(1) tablet daily. amoxicillin-clavulanic acid (AUGMENTIN) 875-125 mg per tablet Take 1 tablet by mouth twice daily for 10 days. No current facility-administered medications for this visit. ALLERGIES Allergen Reactions Iodine Rash questionable Naprosyn [Naproxen] Shortness of Breath Sulfa (Sulfonamide * Rash Significant rash Social History Tobacco Use Smoking status: Former Packs/day: 0.50 Years: 30.00 Total pack years: 15.00 Types: Cigarettes Start date: 11/21/1965 Quit date: 03/17/1996 Years since quittin.5 Smokeless tobacco: Never Tobacco comments: Parents smoked in childhood home. Vaping Use Vaping Use: Never used Substance Use Topics Alcohol use: Yes Alcohol/week: 2.5 standard drinks of alcohol Types: 1 Glasses of Wine (5oz) per week Comment: Socially Drug use: No ROS: See HPI. PE: BP 124/70 Pulse 72 Temp (Src) 96.3 (Left Tympanic) Resp 16 Wt 184 lb (83.5kg) Gen: A&OX3, NAD, non-toxic appearing HEENT: PERRLA, EOMs intact b/l, nares without drainage, pharynx without erythema, exudate, lesions, or drainage. Uvula midline. MMM, EAC and TM on left normal other than psoriasis skin changes. Right TM with erythema and bulging and EAC with psoriasis Neck: No LAD, no thyromegaly, no meningismus. CV: RRR, no murmur Lungs: CTA b/l, no wheezing Skin: No rashes, lesions, or wounds on exposed skin. Non focal neurologic exam, gait slightly unsteady, some difficulty with getting up onto examination table with turning self to sit, otherwise normal CN exam No edema, normal pulses ASSESSMENT/PLAN: 1. Short-term memory loss - ICD9: 780.93, ICD10: R41.3 (primary diagnosis) Need for labs and CT brain and referral to Neurologist. She scored 28/30 on MMSE in office in Mar. Didn't repeat this testing today. Will get opinion by specialist. Has a fmhx of dementia, unknown type, in mother. - CT BRAIN WO IVCON - VITAMIN D 25 HYDROXY - VITAMIN B12 BLOOD - C-REACTIVE PROTEIN (CRP) - CONSULT TO NEUROLOGY 2. Hyperglycemia - ICD9: 790.29, ICD10: R73.9 Recheck labs - HGB A1C 3. Hypothyroidism, unspecified type - ICD9: 244.9, ICD10: E03.9 - Instructed patient on importance of taking on an empty stomach either first thing in the morning or at bedtime. - continue current dose of Synthroid 0.150 mg Stable - Behavioral intervention, - Eat well program, and - Continue current medications - TSH BLD - T4 FREE/FREE THYROX - T3 FREE BLD - CBC + DIFF - COMP METABOLIC PANEL 4. Acute otitis media, right - ICD9: 382.9, ICD10: H66.91 - Will begin treatment with as per antibiotic as written, see orders - AMOXICILLIN 875 MG-POTASSIUM CLAVULANATE 125 MG TABLET 5. Dyslipidemia - ICD9: 272.4, ICD10: E78.5 - Control undetermined, due for labs - Continue current medications - Counseled on healthy diet and regular exercise - Discussed need for and benefit of weight loss. BMI 31.22 kg/(m^2) Amado Freeman DO Return if no improvement. Follow up with Amado Freeman DO. To ER if develops chest pain, shortness of breath Discussed risks, benefits, alternatives, and potential side effects of medications. Patient/Guardian expressed understanding and agreed with the plan. See patient instructions. Amado Freeman DO [address] [place] [address] documented in this encounter [facility] 08-21-2022 Note Patient Outreach (IN [facility]) TWAN OKEEFE ([id number]) 1945 F Date Time Provider Department 08/21/22 AMADO FREEMAN [place] During your visit today, we recorded the following information about you: Allergies As of Date: 08/21/2022 Noted Allergy Reaction IODINE 11/28/2004 2 - Rash Comments: questionable NAPROSYN (NAPROXEN) 11/28/2004 12 - Shortness of Breath SULFA (SULFONAMIDE ANTIBIOTICS) 09/10/2021 2 - Rash Comments: Significant rash Date Reviewed: 04/03/2022 Reviewed by: Chay Sargent APRN.GATE PERSON - Fully Assessed Visit Diagnosis:Encounter for screening mammogram for breast cancer [Z12.31] Order(s):[facility] SCREENING [[id number]] Order #: [id number] FUTURE Prescriptions as of 08/26/2022 - montelukast (SINGULAIR) 10 mg tablet Take 1 tablet by mouth once daily. - triamcinolone acetonide (KENALOG) 0.1 % cream Apply to affected area twice daily. - ketoconazole (NIZORAL) 2 % shampoo Apply to affected area once daily as needed. - esomeprazole (NEXIUM) 20 mg capsule TAKE 1 CAPSULE EVERY DAY 1/2 HOUR BEFORE BREAKFAST - ezetimibe (ZETIA) 10 mg tablet Take 1 tablet by mouth once daily. - fluticasone (FLOVENT HFA) 44 mcg/actuation inhaler Inhale 2 Puffs as instructed twice daily. - dexAMETHasone (PF) ophthalmic solution 0.1% (IP-CPD) Instill 1 drop into each ear canal twice daily until resolution of eczema. Then use as needed for flare-ups. - levothyroxine (SYNTHROID) 150 mcg tablet TAKE 1 TABLET BY MOUTH ONCE DAILY ON EMPTY STOMACH FOR THYROID. - CHOLECALCIFEROL, VITAMIN D3, (VITAMIN D3 ORAL) Take by mouth. - VITAMIN B COMPLEX (B COMPLEX ORAL) Take by mouth once daily. - CALCIUM 500 WITH VITAMIN D 500 MG-125 UNIT TAB Take one(1) tablet three times daily. - MULTIVITAMIN ORAL TAB Take one(1) tablet daily. Meds Comments as of 06/06/2015: Problem List As Of Date 08/21/2022 Noted Resolved Goiter, unspecified [E04.9] 05/30/2011 Asthma [J45.909] BENIGN NEOPLASM LG BOWEL [D12.6] DIVERTICULOSIS OF COLON W/O BLEED [K57.30] INT HEMORRHOID W/O COMPL [K64.8] ACUTE GASTRITIS W/O HEMORRHAGE [K29.00] 10/23/2005 Hypothyroidism [E03.9] Screening for unspecified condition [Z13.9] 06/30/2014 Dysphagia, unspecified(787.20) [R13.10] 06/30/2014 Colon polyps [K63.5] Mild intermittent asthma without complication [*06/24/2016 Scalp psoriasis [L40.9] 06/24/2016 Right hip pain [M25.551] 11/26/2017 Asthma in adult, mild persistent, uncomplicated* Dermatochalasis of both upper eyelids [H02.831,*01/19/2021 01/19/2021 Encounter Status:Closed by LOUISE PRODUSER on 08/26/22 [facility] 04-05-2022 Miscellaneous Notes Patent was notified Janny Brink Ma Please have her start taking her levothyroxine correctly in the morning, and then recheck her levels again in 6 weeks. Noted with the statins. Chay Sargent APRN.CNP Spoke with pt she states is taking every day but with her full breakfast and all other meds . Did explain has to be by itself an hour before eating or 3-4 hours after eating. As far as zetia she states she has always been anti-statins. Does not want to take them. Did explain the risks . Please let Twan know that I received her lab results. Her TSH level is very high and has increased significantly. T3 level is a little bit low. Please verify-is she taking her levothyroxine 150mcg every morning without missing a day, on an empty stomach, 1 hour prior to eating? Her total and LDL cholesterol are too high. Is she taking her Zetia 10mg every evening? Is she able to tolerate a statin medication such as Crestor? No other concerns. Chay Sargent APRN.CNP documented in this encounter [facility] 04-03-2022 Nurse Note Ambulatory Ear Lavage Pre-treatment: No pre-treatment Treatment: Both ears Equipment and Irrigation solution and Volume used: Single use syringe with single use irrigation tip Water Return flow appearance: Clear Patient tolerated procedure: yes Post-treatment: Post Irrigation Post-treatment: Ear Canal/Tympanic membrane assessed by LIP Chay Sargent, [employer] student Maile documented in this encounter [facility] 04-03-2022 History of Present illness Narrative Chief Complaint Patient presents with: Follow Up: Anxiety/dementia- forgetting things HPI Twan Okeeef is a 76 year old female who presents here today for Above Complaints.. Today: Has been forgetting things such as a short term conversation or plans that have been made. Mostly just little things. Will remember and correct herself. has some concern. Has increased over the last 6 months. Mother had dementia that started about this ago. Past medical history, appointments, medications, allergies reviewed. Previous Medical History PAST MEDICAL HISTORY Diagnosis Date Acute gastritis without mention of hemorrhage Asthma in adult, mild persistent, uncomplicated Colon polyps Diverticulosis of colon (without mention of hemorrhage) Glaucoma suspect Hemangioma of unspecified site HEPATIC Hypercholesteremia refuses statins Hypothyroidism Endo: Dr. 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 LIG/TRNSXJ FLP TUBE ABDL/VAG APPR UNI/BI THYROIDECTOMY TOTAL/COMPLETE 07/2008 multinodular goiter TONSILLECTOMY PRIMARY/SECONDARY <AGE 12 Family History FAMILY HISTORY Problem Relation Age of Onset Alzheimer's Disease Mother passed 2003 Cancer Father of the lungs, from this Cancer Sister stomach passed from this 03/22/05 Diabetes Sister Hypertension Sister Lipids Sister Patient Allergies ALLERGIES Allergen Reactions Iodine Rash questionable Naprosyn [Naproxen] Shortness of Breath Sulfa (Sulfonamide * Rash Significant rash Current Medications Current Outpatient Medications on File Prior to Visit Medication Sig montelukast (SINGULAIR) 10 mg tablet TAKE 1 TABLET EVERY DAY triamcinolone acetonide (KENALOG) 0.1 % cream Apply to affected area twice daily. ketoconazole (NIZORAL) 2 % shampoo Apply to affected area once daily as needed. esomeprazole (NEXIUM) 20 mg capsule TAKE 1 CAPSULE EVERY DAY 1/2 HOUR BEFORE BREAKFAST levothyroxine (SYNTHROID) 150 mcg tablet TAKE 1 TABLET BY MOUTH ONCE DAILY ON EMPTY STOMACH FOR THYROID. ezetimibe (ZETIA) 10 mg tablet TAKE 1 TABLET EVERY DAY FLOVENT HFA 44 mcg/actuation inhaler INHALE 2 PUFFS INSTRUCTED TWICE DAILY. albuterol HFA (VENTOLIN HFA) 90 mcg/actuation inhaler Inhale 2 Puffs as instructed every 6 hours as needed. LACTOBACILLUS ACIDOPHILUS (ACIDOPHOLUS ORAL) Take by mouth. Take one tablet daily. CHOLECALCIFEROL, VITAMIN D3, (VITAMIN D3 ORAL) Take by mouth. VITAMIN B COMPLEX (B COMPLEX ORAL) Take by mouth once daily. CALCIUM 500 WITH VITAMIN D 500 MG-125 UNIT TAB Take one(1) tablet three times daily. MULTIVITAMIN ORAL TAB Take one(1) tablet daily. mupirocin (BACTROBAN) 2 % ointment Apply to affected area three times daily. for 10 days, location; right upper abdominal lesion Flaxseed Oil oil Two tablespoons daily (Patient not taking: No sig reported) No current facility-administered medications on file prior to visit. Social History Social History Tobacco Use Smoking status: Former Packs/day: 0.50 Years: 30.00 Pack years: 15.00 Types: Cigarettes Start date: 11/21/1965 Quit date: 03/17/1996 Years since quittin.0 Smokeless tobacco: Never Tobacco comments: Parents smoked in childhood home. Vaping Use Vaping Use: Never used Substance Use Topics Alcohol use: Yes Alcohol/week: 2.5 standard drinks Types: 1 Glasses of Wine (5oz) per week Comment: Socially Drug use: No Review of Symptoms REVIEW OF SYSTEMS See HPI, otherwise negative EXAM: BP 142/90 (BP Site: Left Arm, BP Position: Sitting, BP Cuff Size: Regular Adult) Pulse 76 Resp 16 Wt 84.9 kg (187 lb 3.2 oz) SpO2 98% BMI 32.13 kg/m General Appearance: Well appearing, alert, in no acute distress, well-hydrated, well nourished.. Lungs: Lungs clear to auscultation. No wheezing, rhonchi, rales.. Heart: RRR without murmur, gallop, or rubs. No ectopy. Neurologic: Gait normal. Reflexes normal and symmetric. Sensation grossly intact.. Psychiatric: pleasant, cooperative. MINI-MENTAL STATE EXAMINATION (MMSE) Make the patient comfortable and establish rapport. Ask questions in the order listed. Total possible score is 30. ORIENTATION 1. What is the (year) (season) (date) (day) (month)? Max score=5 Patient's score=5 2. Where are we? (state) (county) (town or city) (hospital) (floor)? Max score=5 Patient's score=5 REGISTRATION Ask the patient if you may test his/her memory. Then say the names of 3 unrelated objects, clearly and slowly, about one second for each (eg, apple, table, joanie). After you have said all 3, ask him/her to repeat them. This first repetition determines the score(0-3), but keep saying them until he/she can repeat all 3, up to 6 trials. Max score=3 Patient's score=3 ATTENTION AND CALCULATION Ask the patient to begin with 100 and count backwards by 7. Stop after 5 subtractions (93, 86, 79, 72, 65). Score the total number of correct answers. If the patient cannot or will not perform the serial 7s task, ask him/her to spell the word WORLD backwards. The score is the number of letters in the correct order (eg, DLROW=5; DLRW=4; DLORW, DLW=3; OW=2; DRLWO=1). Max score=5 Patient's score=5 RECALL Ask the patient to recall the 3 items repeated above (eg, apple, table, joanie). Max score=3 Patient's score=1 LANGUAGE Naming: Show the patient a wristwatch and ask him/her what it is. Repeat for pencil. Max score=2 Patient's score=2 Repetition: Ask the patient to repeat the phrase No ifs, ands, or buts: after you. Max score=1 Patient's score=1 3-Stage Command: Give the patient a piece of blank paper and ask him/her to take a piece of paper in your right hand, fold it in half, put it on the floor. Score 1 point for each part correctly executed. Max score=3 Patient's score=3 Reading: On a blank piece of paper, print the sentence CLOSE YOUR EYES in letters large enough for the patient to see clearly. Ask him/her to read it and do what it says. Score 1 point only if he/she actually closes his/her eyes. Max score=1 Patient's score=1 Writing: Give the patient a blank piece of paper and ask him/her to write a sentence. Do not dictate a sentence; it is to be written spontaneously. It must contain a subject and verb and be sensible. Correct grammar and punctuation are not necessary. Max score=1 Patient's score=1 Copying: Ask the patient to copy the figure of intersecting pentagons exactly as it is. All 10 angles must be present and 2 must intersect to form a 4-sided figure to score 1 point. Tremor and rotation are ignored. Max score=1 Patient's score=1 MAXIMUM TOTAL SCORE = 30 TOTAL SCORE = 28/30 Suggested guideline for determining the severity of cognitive impairment: Mild: MMSE>21 Moderate: MMSE 10-20 Severe: MMSE<9 Expected decline in MMSE scores in untreated mild to moderate Alzheimer's patient is 2 to 4 points per year. *Adapted from Folstein et al.1 and Quinton and Tonistein2. (c) 1974, 1997 [employer] Used with permission. References: 1. Folstein MF, Folstein SE, Vadim MN. Mini-Mental State: a practical method for grading the cognitive state of patients for the clinician. J Psychiatr Res. 1975; 12:189-198. 2. JR Quinton, Ramesh CUTLER, Mini-Mental State Examination (MMSE). Psychopharm Bull. 1988;24:689-692. 3. Rekha GiordanoT, Ravi FJ, Claudia RD, Chan A, Maximilian F. Neuropsychological function in Alzheimer's disease: pattern of impairment and rates of progression. Arch Neurol. 1988;45:263-268. 4. Meryl JA, Maria Guadalupe B, Roscoe S-P, Karl MELENDEZ. Predictors of cognitive and functional progression in patients with probable Alzheimer's disease. Neurology. 1992;42:2030-2070. Health Maintenance List HEPATITIS C SCREENING Never done SHINGRIX VACCINE(1 of 2) Never done LIPID SCREEN due on 03/30/2017 COLORECTAL CANCER SCREENING due on 06/30/2017 MAMMOGRAM due on 10/02/2018 COVID-19 VACCINE(4 - Booster for Moderna series) due on 03/08/2021 INFLUENZA(1) due on 11/15/2021 ADVANCE DIRECTIVE DISCUSSION Never done DEPRESSION ASSESSMENT Never done DTAP,TDAP,TD(2 - Td or Tdap) due on 08/30/2022 ANNUAL PCP TEAM CHRONIC DISEASE VISIT due on 09/10/2022 DIABETES SCREEN due on 01/09/2024 BONE DENSITY Completed SPIROMETRY Completed PNEUMOCOCCAL: 65+ Completed Data reviewed Previous records, office notes ASSESSMENT/PLAN: 1. Short-term memory loss - ICD9: 780.93, ICD10: R41.3 (primary diagnosis) MMSE 28/30. Will continue to follow patient for this concern. Repeat MMSE in 6 months, sooner if necessary. 2. Hypothyroidism, unspecified type - ICD9: 244.9, ICD10: E03.9 - CBC - TSH BLD - T3 BLD - T4 FREE/FREE THYROX - THYROID PEROXIDASE ANTIBODY BLOOD - THYROGLOBULIN AB 3. Screening for diabetes mellitus - ICD9: V77.1, ICD10: Z13.1 - CBC - COMP METABOLIC PANEL - HGB A1C 4. Encounter for vitamin deficiency screening - ICD9: V77.99, ICD10: Z13.21 - VITAMIN D 25 HYDROXY - VITAMIN B12 BLOOD 5. Mild intermittent asthma without complication - ICD9: 493.90, ICD10: J45.20 Controlled, refill given - MONTELUKAST 10 MG TABLET 6. Rash - ICD9: 782.1, ICD10: R21 To right montanez. If no improvement with triamcinolone, consider antifungal. - TRIAMCINOLONE ACETONIDE 0.1 % TOPICAL CREAM 7. Psoriasis of scalp - ICD9: 696.1, ICD10: L40.9 Refill given - KETOCONAZOLE 2 % SHAMPOO 8. Dysphagia, unspecified type - ICD9: 787.20, ICD10: R13.10 Hx of - ESOMEPRAZOLE MAGNESIUM 20 MG CAPSULE,DELAYED RELEASE 9. Dyslipidemia - ICD9: 272.4, ICD10: E78.5 - EZETIMIBE 10 MG TABLET 10. Asthma in adult without complication, unspecified asthma severity, unspecified whether persistent - ICD9: 493.90, ICD10: J45.909 Controlled, refill given. - FLUTICASONE PROPIONATE 44 MCG/ACTUATION HFA AEROSOL INHALER 11. Eczema of both external ears - ICD9: 380.22, ICD10: H60.543 One drop to each ear twice daily until eczema sx improve. Then utilize prn. - DEXAMETHASONE 0.1% (PF) OPHTHALMIC SOLUTION (IP-CPD) 12. Screening for lipid disorders - ICD9: V77.91, ICD10: Z13.220 - LIPID PANEL BASIC Chay Sargent APRN.GLORIA documented in this encounter [facility] 11-21-2021 Miscellaneous Notes Patient phones requesting refills as follows: Requested Prescriptions Pending Prescriptions Disp Refills montelukast (SINGULAIR) 10 mg tablet [Pharmacy Med Name: MONTELUKAST SODIUM 10 MG Tablet] 90 tablet 3 Sig: TAKE 1 TABLET EVERY DAY JENNIFER-09/10/21 Labs-07/05/21 NOV-none med filled 12/28/20 Please review and advise. Magalis Najera LPN documented in this encounter [facility] 09-10-2021 Miscellaneous Notes The following approved medication requests have been transmitted electronically. Signed Prescriptions Disp Refills mupirocin (BACTROBAN) 2 % ointment 15 g 1 Sig: Apply to affected area three times daily. for 10 days, location; right upper abdominal lesion Authorizing Provider: CHAY SARGENT APRN.GATE PERSON Agustín pharmacist from [facility] calling Mupirocin 2% cream is not covered and cost is 200 hundred dollars asking if could change rx to Ointment which is covered for 5 dollars? Pending rx to file if wanted. Please advise documented in this encounter [facility] 09-10-2021 Miscellaneous Notes Addended by: CHAY SARGENT on: 09/10/2021 12:20 PM Modules accepted: Orders Addended by: MELISSA FISCHER MA on: 09/10/2021 12:11 PM Modules accepted: Orders documented in this encounter [facility] 09-10-2021 Instructions Chay Sargent APRN.CNP - 09/10/2021 10:23 AM EDT Keep an eye on the lesion infection. If it gets bigger, hot, starts to drain, etc, please let us know. I'll likely have results of the swab in 3-4 days. Use the cream twice daily. Please let me know if no improvement or worsening by or Friday. documented in this encounter [facility] 09-10-2021 History of Present illness Narrative Chief Complaint Patient presents with: Rash: itchy & burning sensation HPI Twan Okeefe is a 75 year old female who presents here today for Above Complaints. Today: Started with rash to right upper abdomen several weeks ago. Was more of a white, possible infection area. Was seen in urgent care and given an antibiotic. This did not improve, so she was then seen again in the office and given another antibiotic. She now continues with this infection and has a very itchy rash that has developed. Is on her torso, breasts, back, backs of her arms. Has tried creams at home. Past medical history, appointments, medications, allergies reviewed. Previous Medical History PAST MEDICAL HISTORY Diagnosis Date Acute gastritis without mention of hemorrhage Asthma in adult, mild persistent, uncomplicated Colon polyps Diverticulosis of colon (without mention of hemorrhage) Glaucoma suspect Hemangioma of unspecified site HEPATIC Hypercholesteremia refuses statins Hypothyroidism Endo: Dr. 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 LIG/TRNSXJ FLP TUBE ABDL/VAG APPR UNI/BI THYROIDECTOMY TOTAL/COMPLETE 07/2008 multinodular goiter TONSILLECTOMY PRIMARY/SECONDARY <AGE 12 Family History FAMILY HISTORY Problem Relation Age of Onset Alzheimer's Disease Mother passed 2003 Cancer Father of the lungs, from this Cancer Sister stomach passed from this 03/22/05 Diabetes Sister Hypertension Sister Lipids Sister Patient Allergies ALLERGIES Allergen Reactions Iodine Rash questionable Naprosyn [Naproxen] Shortness of Breath Current Medications Current Outpatient Medications on File Prior to Visit Medication Sig ketoconazole (NIZORAL) 2 % shampoo Apply to affected area once daily as needed. esomeprazole (NEXIUM) 20 mg capsule TAKE 1 CAPSULE EVERY DAY 1/2 HOUR BEFORE BREAKFAST levothyroxine (SYNTHROID) 150 mcg tablet TAKE 1 TABLET BY MOUTH ONCE DAILY ON EMPTY STOMACH FOR THYROID. ezetimibe (ZETIA) 10 mg tablet TAKE 1 TABLET EVERY DAY montelukast (SINGULAIR) 10 mg tablet TAKE 1 TABLET EVERY DAY FLOVENT HFA 44 mcg/actuation inhaler INHALE 2 PUFFS INSTRUCTED TWICE DAILY. albuterol HFA (VENTOLIN HFA) 90 mcg/actuation inhaler Inhale 2 Puffs as instructed every 6 hours as needed. LACTOBACILLUS ACIDOPHILUS (ACIDOPHOLUS ORAL) Take by mouth. Take one tablet daily. CHOLECALCIFEROL, VITAMIN D3, (VITAMIN D3 ORAL) Take by mouth. VITAMIN B COMPLEX (B COMPLEX ORAL) Take by mouth once daily. CALCIUM 500 WITH VITAMIN D 500 MG-125 UNIT TAB Take one(1) tablet three times daily. MULTIVITAMIN ORAL TAB Take one(1) tablet daily. Flaxseed Oil oil Two tablespoons daily (Patient not taking: Reported on 01/08/2021 ) No current facility-administered medications on file prior to visit. Social History Social History Tobacco Use Smoking status: Former Smoker Packs/day: 0.50 Years: 30.00 Pack years: 15.00 Types: Cigarettes Start date: 11/21/1965 Quit date: 03/17/1996 Years since quittin.5 Smokeless tobacco: Never Used Tobacco comment: Parents smoked in childhood home. Vaping Use Vaping Use: Never used Substance Use Topics Alcohol use: Yes Alcohol/week: 2.5 standard drinks Types: 1 Glasses of Wine (5oz) per week Comment: Socially Drug use: No Review of Symptoms REVIEW OF SYSTEMS See HPI, otherwise negative EXAM: BP 136/70 (BP Site: Left Arm, BP Position: Sitting, BP Cuff Size: Regular Adult) Pulse 87 Resp 16 Wt 78.9 kg (174 lb) SpO2 98% BMI 29.87 kg/m Skin: Positives: 1.5 x 1.5 cm area of erythema, scant amount of cream colored drainage from center. Rash to torso, breasts, back, backs of arms-blanches, pruritic, macules, no drainage Health Maintenance List HEPATITIS C SCREENING Never done SHINGRIX VACCINE(1 of 2) Never done LIPID SCREEN due on 03/30/2017 COLORECTAL CANCER SCREENING due on 06/30/2017 MAMMOGRAM due on 10/02/2018 ADVANCE DIRECTIVE DISCUSSION Never done COVID-19 VACCINE(4 - Booster for Moderna series) due on 05/14/2021 DTAP,TDAP,TD(2 - Td or Tdap) due on 08/30/2022 ANNUAL PCP TEAM CHRONIC DISEASE VISIT due on 08/30/2022 DEPRESSION SCREENING due on 08/30/2022 DIABETES SCREEN due on 01/09/2024 BONE DENSITY Completed SPIROMETRY Completed INFLUENZA Completed PNEUMOCOCCAL: 65+ Completed Data reviewed Previous records, office notes ASSESSMENT/PLAN: 1. Rash - ICD9: 782.1, ICD10: R21 (primary diagnosis) Suspect reaction to Bactrim. Steroid injection today, to begin PO prednisone tomorrow, mupirocin to lesion tid, triamcinolone cream to rash. No antibiotic at this time, but will consider once culture results returned. - TRIAMCINOLONE ACETONIDE 0.1 % TOPICAL CREAM - TRIAMCINOLONE ACETONIDE 40 MG/ML SUSPENSION FOR INJECTION - MUPIROCIN CALCIUM 2 % TOPICAL CREAM - PREDNISONE 20 MG TABLET 2. Skin lesion - ICD9: 709.9, ICD10: L98.9 Suspect reaction to Bactrim. Steroid injection today, to begin PO prednisone tomorrow, mupirocin to lesion tid, triamcinolone cream to rash. No antibiotic at this time, but will consider once culture results returned. - TRIAMCINOLONE ACETONIDE 0.1 % TOPICAL CREAM - TRIAMCINOLONE ACETONIDE 40 MG/ML SUSPENSION FOR INJECTION - MUPIROCIN CALCIUM 2 % TOPICAL CREAM - PREDNISONE 20 MG TABLET 3. Drug rash - ICD9: 693.0, ICD10: L27.0 Suspect reaction to Bactrim. Steroid injection today, to begin PO prednisone tomorrow, mupirocin to lesion tid, triamcinolone cream to rash. No antibiotic at this time, but will consider once culture results returned. - TRIAMCINOLONE ACETONIDE 0.1 % TOPICAL CREAM - TRIAMCINOLONE ACETONIDE 40 MG/ML SUSPENSION FOR INJECTION - MUPIROCIN CALCIUM 2 % TOPICAL CREAM - PREDNISONE 20 MG TABLET Chay Sargent APRN.CNP Greater than 50% of 33-minute visit spent face to face with patient in counseling and education. documented in this encounter [facility] 08-30-2021 History of Present illness Narrative Chief Complaint Patient presents with: Mass: under rt breast. seen in urgent care was given atb. took and finished no improvement HPI Twan Okeefe is a 75 year old female who presents here today for Above Complaints. Herminio is an established patient of Dr. Rui DO. Twan is a new patient to me today. Concerns today.. Rash: Seen at urgent care on 08/20 d/t red lump under R breast x 2 days. No relief with hydrogen peroxide. Dx of skin infection and given Keflex atb rx. Today... Started 1 month. Thought it was a bite of some kind. After 2 weeks not getting better than went to urgent care. Prescribed and took keflex completely. Did not help area at all. Denies any itchiness. Reports small white head yesterday, today started to slightly drain with creamy white discharge. Denies fever/chills. Denies any pain just discomfort from bra rubbing against area. No pain when not wearing a bra. Denies redness spreading. No other concerns or complaints today. Past medical history, appointments, medications, allergies reviewed. Previous Medical History PAST MEDICAL HISTORY Diagnosis Date Acute gastritis without mention of hemorrhage Asthma in adult, mild persistent, uncomplicated Colon polyps Diverticulosis of colon (without mention of hemorrhage) Glaucoma suspect Hemangioma of unspecified site HEPATIC Hypercholesteremia refuses statins Hypothyroidism Endo: Dr. 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 LIG/TRNSXJ FLP TUBE ABDL/VAG APPR UNI/BI THYROIDECTOMY TOTAL/COMPLETE 07/2008 multinodular goiter TONSILLECTOMY PRIMARY/SECONDARY <AGE 12 Family History FAMILY HISTORY Problem Relation Age of Onset Alzheimer's Disease Mother passed 2003 Cancer Father of the lungs, from this Cancer Sister stomach passed from this 03/22/05 Diabetes Sister Hypertension Sister Lipids Sister Patient Allergies ALLERGIES Allergen Reactions Iodine Rash questionable Naprosyn [Naproxen] Shortness of Breath Current Medications Current Outpatient Medications on File Prior to Visit Medication Sig ketoconazole (NIZORAL) 2 % shampoo Apply to affected area once daily as needed. esomeprazole (NEXIUM) 20 mg capsule TAKE 1 CAPSULE EVERY DAY 1/2 HOUR BEFORE BREAKFAST levothyroxine (SYNTHROID) 150 mcg tablet TAKE 1 TABLET BY MOUTH ONCE DAILY ON EMPTY STOMACH FOR THYROID. ezetimibe (ZETIA) 10 mg tablet TAKE 1 TABLET EVERY DAY montelukast (SINGULAIR) 10 mg tablet TAKE 1 TABLET EVERY DAY FLOVENT HFA 44 mcg/actuation inhaler INHALE 2 PUFFS INSTRUCTED TWICE DAILY. albuterol HFA (VENTOLIN HFA) 90 mcg/actuation inhaler Inhale 2 Puffs as instructed every 6 hours as needed. LACTOBACILLUS ACIDOPHILUS (ACIDOPHOLUS ORAL) Take by mouth. Take one tablet daily. Flaxseed Oil oil Two tablespoons daily (Patient not taking: Reported on 01/08/2021 ) CHOLECALCIFEROL, VITAMIN D3, (VITAMIN D3 ORAL) Take by mouth. VITAMIN B COMPLEX (B COMPLEX ORAL) Take by mouth once daily. CALCIUM 500 WITH VITAMIN D 500 MG-125 UNIT TAB Take one(1) tablet three times daily. MULTIVITAMIN ORAL TAB Take one(1) tablet daily. No current facility-administered medications on file prior to visit. Social History Social History Tobacco Use Smoking status: Former Smoker Packs/day: 0.50 Years: 30.00 Pack years: 15.00 Types: Cigarettes Start date: 11/21/1965 Quit date: 03/17/1996 Years since quittin.4 Smokeless tobacco: Never Used Tobacco comment: Parents smoked in childhood home. Vaping Use Vaping Use: Never used Substance Use Topics Alcohol use: Yes Alcohol/week: 2.5 standard drinks Types: 1 Glasses of Wine (5oz) per week Comment: Socially Drug use: No REVIEW OF SYSTEMS: as above Reviewed relevant PMHx, PSHx, Social Hx, current medications and allergies. Review of Symptoms See HPI. All other systems are negative. EXAM: BP 130/60 (BP Site: Left Arm, BP Position: Sitting, BP Cuff Size: Regular Adult) Pulse 72 Resp 16 Wt 79.7 kg (175 lb 12.8 oz) BMI 30.18 kg/m General Appearance: Well appearing, alert, in no acute distress, well-hydrated, well nourished.. Skin: Skin color, texture, turgor normal, no suspicious rashes or lesions, Positives: erythremic cyst/boil below R breast about the size of a joanie. Inflamed and full of pus. Creamy white drainage upon assessment. Able to squeeze out drainage on assessment. Head: Normocephalic, no masses, lesions, tenderness or abnormalities. Lungs: Lungs clear to auscultation. No wheezing, rhonchi, rales.. Heart: RRR without murmur, gallop, or rubs. No ectopy. Abdomen: Normal abdominal exam, Abdomen soft, non-tender. Bowel sounds normal. No masses, organomegaly. Health Maintenance List DEPRESSION SCREENING Never done HEPATITIS C SCREENING Never done SHINGRIX VACCINE(1 of 2) Never done LIPID SCREEN due on 03/30/2017 COLORECTAL CANCER SCREENING due on 06/30/2017 MAMMOGRAM due on 10/02/2018 ADVANCE DIRECTIVE DISCUSSION Never done COVID-19 VACCINE(4 - Booster for Moderna series) due on 05/14/2021 DTAP,TDAP,TD(2 - Td or Tdap) due on 05/29/2021 ANNUAL PCP TEAM CHRONIC DISEASE VISIT due on 01/08/2022 DIABETES SCREEN due on 01/09/2024 BONE DENSITY Completed SPIROMETRY Completed INFLUENZA Completed PNEUMOCOCCAL: 65+ Completed ASSESSMENT/PLAN: 1. Sebaceous cyst - ICD9: 706.2, ICD10: L72.3 Beginning to drain on its own from small opening. Start taking bactrim BID x 10 days. Put warm compress to area with baking soda to help promote drainage. Keep area clean and covered with bandage and continue to monitor drainage, erythema, and inflammation. If no improvement in 5 days, please let me know. May need to deacon or I&D. No concerns for cellulitis at this time. - SULFAMETHOXAZOLE 800 MG-TRIMETHOPRIM 160 MG TABLET RTO if no improvement in 5 days. Prescription instructions reviewed with patient as applicable. Potential red flag symptoms discussed with the patient. Reviewed appropriate action plan to take if red flag symptoms occur. Patient agreeable to treatment plan. Polina Sheridan APRN.[id number] [place] [address] documented in this encounter [facility] 08-20-2021 History of Present illness Narrative Images from the original note were not included. Subjective Twan Okeefe is a 75 year old female who presents with a red lump under her right breast. Reports that she noticed the area 2 days ago. Denies any pain or itching. Denies fever, chills, or chest pain. States overall she feels well. Reports putting hydrogen peroxide on the site when first noticed with no improvement. Denies known injury/bite to the area. The history is provided by the patient. No sign language instructor was used. Rash This is a new problem. The current episode started in the past 7 days. The problem has been gradually worsening since onset. The rash is characterized by redness. Pertinent negatives include no fatigue or fever. Treatments tried: hydrogen peroxide. The treatment provided no relief. Review of Systems Constitutional: Negative for chills, fatigue and fever. Cardiovascular: Negative for chest pain. Gastrointestinal: Negative for abdominal pain. Skin: Negative for itching and rash. BP 160/100 Pulse 74 Temp 36.5 C (97.7 F) Resp 20 Wt 80.1 kg (176 lb 9.6 oz) SpO2 98% BMI 30.31 kg/m PAST MEDICAL HISTORY Diagnosis Date Acute gastritis without mention of hemorrhage Asthma in adult, mild persistent, uncomplicated Colon polyps Diverticulosis of colon (without mention of hemorrhage) Glaucoma suspect Hemangioma of unspecified site HEPATIC Hypercholesteremia refuses statins Hypothyroidism Endo: Dr. 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 esomeprazole (NEXIUM) 20 mg capsule TAKE 1 CAPSULE EVERY DAY 1/2 HOUR BEFORE BREAKFAST levothyroxine (SYNTHROID) 150 mcg tablet TAKE 1 TABLET BY MOUTH ONCE DAILY ON EMPTY STOMACH FOR THYROID. ezetimibe (ZETIA) 10 mg tablet TAKE 1 TABLET EVERY DAY montelukast (SINGULAIR) 10 mg tablet TAKE 1 TABLET EVERY DAY FLOVENT HFA 44 mcg/actuation inhaler INHALE 2 PUFFS INSTRUCTED TWICE DAILY. albuterol HFA (VENTOLIN HFA) 90 mcg/actuation inhaler Inhale 2 Puffs as instructed every 6 hours as needed. LACTOBACILLUS ACIDOPHILUS (ACIDOPHOLUS ORAL) Take by mouth. Take one tablet daily. CHOLECALCIFEROL, VITAMIN D3, (VITAMIN D3 ORAL) Take by mouth. VITAMIN B COMPLEX (B COMPLEX ORAL) Take by mouth once daily. CALCIUM 500 WITH VITAMIN D 500 MG-125 UNIT TAB Take one(1) tablet three times daily. MULTIVITAMIN ORAL TAB Take one(1) tablet daily. cephALEXin (KEFLEX) 500 mg capsule Take 1 capsule by mouth three times daily for 7 days. Flaxseed Oil oil Two tablespoons daily FAMILY HISTORY Problem Relation Age of Onset Alzheimer's Disease Mother passed 2003 Cancer Father of the lungs, from this Cancer Sister stomach passed from this 03/22/05 Diabetes Sister Hypertension Sister Lipids Sister Social History Tobacco Use Smoking status: Former Smoker Packs/day: 0.50 Years: 30.00 Pack years: 15.00 Types: Cigarettes Start date: 11/21/1965 Quit date: 03/17/1996 Years since quittin.4 Smokeless tobacco: Never Used Tobacco comment: Parents smoked in childhood home. Vaping Use Vaping Use: Never used Substance Use Topics Alcohol use: Yes Alcohol/week: 2.5 standard drinks Types: 1 Glasses of Wine (5oz) per week Comment: Socially Drug use: No Objective Physical Exam Vitals and nursing note reviewed. Constitutional: Appearance: Normal appearance. Cardiovascular: Rate and Rhythm: Normal rate and regular rhythm. Pulmonary: Effort: Pulmonary effort is normal. Breath sounds: Normal breath sounds. Abdominal: Palpations: Abdomen is soft. Tenderness: There is no abdominal tenderness. Skin: General: Skin is warm. Findings: Abscess present. Neurological: Mental Status: She is alert and oriented to person, place, and time. ASSESSMENT/PLAN: 1. Skin infection - ICD9: 686.9, ICD10: L08.9 - Begin treatment with Cephalaxin (Keflex) - Apply warm compress to the site - CEPHALEXIN 500 MG CAPSULE Shantelle Slentz, WOOD GOUGER student TEACHING PROVIDER (Physician/PA/STAFF THERAPIST) NOTE OF PERSONAL INVOLVEMENT IN CARE: I have personally seen and examined the patient and performed the medical decision-making components. I have reviewed the Advanced Practice Registered Nurse (STAFF THERAPIST) Student's documentation and verified the findings in the note as written. Any additions or changes are noted in bold/italics. Signature: Mirela Cochran Date: 08/20/2021 Time: 12:14 PM documented in this encounter [facility] 08-20-2021 Instructions Shantelle Chery - 08/20/2021 11:49 AM EDT ASSESSMENT/PLAN: 1. Skin infection - ICD9: 686.9, ICD10: L08.9 - Begin treatment with Cephalaxin (Keflex) - CEPHALEXIN 500 MG CAPSULE - Apply warm compress to the site ALIA Hernandez student documented in this encounter [facility] 07-11-2021 Miscellaneous Notes jennifer-- 01/08/21 Last refill-- 01/08/21 90 with 3 refills Last labs-- 01/08/21 Patient has been identified by name and date of : Yes Patient phones for refill(s): Pending Prescriptions Disp Refills KETOCONAZOLE 2 % SHAMPOO 120 mL 2 Sig: Apply to affected area once daily as needed. RODOLFO: No Date of last office visit in primary care: 01/08/21, NOV: not scheduled yet Last 2 Encounter Wt Readings: Date: Wt: 01/08/2021 83.9 kg (185 lb) 12/27/2020 83.9 kg (185 lb) Please advise. Thank you. Daily Reyes RN documented in this encounter [facility] documented as of this encounter (statuses as of 07/11/2021) [facility] History of Past illness Narrative* Problem Noted Date Resolved Date Dermatochalasis of both upper eyelids 01/19/2021 01/19/2021 Goiter, unspecified 05/30/2011 documented as of this encounter (statuses as of 08/20/2021) [facility] History of Past illness Narrative* Problem Noted Date Resolved Date Dermatochalasis of both upper eyelids 01/19/2021 01/19/2021 Goiter, unspecified 05/30/2011 documented as of this encounter (statuses as of 08/30/2021) [facility] History of Past illness Narrative* Problem Noted Date Resolved Date Dermatochalasis of both upper eyelids 01/19/2021 01/19/2021 Goiter, unspecified 05/30/2011 documented as of this encounter (statuses as of 09/10/2021) [facility] History of Past illness Narrative* Problem Noted Date Resolved Date Dermatochalasis of both upper eyelids 01/19/2021 01/19/2021 Goiter, unspecified 05/30/2011 documented as of this encounter (statuses as of 09/10/2021) [facility] History of Past illness Narrative* Problem Noted Date Resolved Date Dermatochalasis of both upper eyelids 01/19/2021 01/19/2021 Goiter, unspecified 05/30/2011 documented as of this encounter (statuses as of 09/17/2021) [facility] History of Past illness Narrative* Problem Noted Date Resolved Date Dermatochalasis of both upper eyelids 01/19/2021 01/19/2021 Goiter, unspecified 05/30/2011 documented as of this encounter (statuses as of 11/21/2021) [place] [address]-05-2021 History of Past illness Narrative* Problem Noted Date Resolved Date Dermatochalasis of both upper eyelids 01/19/2021 01/19/2021 Goiter, unspecified 05/30/2011 documented as of this encounter (statuses as of 04/03/2022) [facility] History of Past illness Narrative* Problem Noted Date Resolved Date Dermatochalasis of both upper eyelids 01/19/2021 01/19/2021 Goiter, unspecified 05/30/2011 documented as of this encounter (statuses as of 04/05/2022) [facility] History of Past illness Narrative* Problem Noted Date Diagnosed Date Resolved Date Dermatochalasis of both upper eyelids 01/19/2021 01/19/2021 Goiter, unspecified 05/30/19 12 documented as of this encounter (statuses as of 10/02/2022) [facility] History of Past illness Narrative* Problem Noted Date Diagnosed Date Resolved Date Dermatochalasis of both upper eyelids 01/19/2021 01/19/2021 Goiter, unspecified 05/30/19 12 documented as of this encounter (statuses as of 10/10/2022) [facility] History of Past illness Narrative* Problem Noted Date Diagnosed Date Resolved Date Dermatochalasis of both upper eyelids 01/19/2021 01/19/2021 Goiter, unspecified 05/30/19 12 documented as of this encounter (statuses as of 11/13/2022) [facility] History of Past illness Narrative* Problem Noted Date Diagnosed Date Resolved Date Dermatochalasis of both upper eyelids 01/19/2021 01/19/2021 Goiter, unspecified 05/30/19 12 documented as of this encounter (statuses as of 11/19/2022) [facility] History of Past illness Narrative* Problem Noted Date Diagnosed Date Resolved Date Dermatochalasis of both upper eyelids 01/19/2021 01/19/2021 Goiter, unspecified 05/30/19 12 documented as of this encounter (statuses as of 11/25/2022) [facility] History of Past illness Narrative* Problem Noted Date Diagnosed Date Resolved Date Dermatochalasis of both upper eyelids 01/19/2021 01/19/2021 Goiter, unspecified 05/30/19 12 documented as of this encounter (statuses as of 11/25/2022) [place] [address]-05-2021 History of Past illness Narrative* Problem Noted Date Diagnosed Date Resolved Date Dermatochalasis of both upper eyelids 01/19/2021 01/19/2021 Goiter, unspecified 05/30/19 12 documented as of this encounter (statuses as of 11/27/2022) [facility] History of Past illness Narrative* Problem Noted Date Diagnosed Date Resolved Date Dermatochalasis of both upper eyelids 01/19/2021 01/19/2021 Goiter, unspecified 05/30/19 12 documented as of this encounter (statuses as of 12/02/2022) [facility] History of Past illness Narrative* Problem Noted Date Diagnosed Date Resolved Date Dermatochalasis of both upper eyelids 01/19/2021 01/19/2021 Goiter, unspecified 05/30/19 12 documented as of this encounter (statuses as of 12/03/2022) [facility] History of Past illness Narrative* Problem Noted Date Diagnosed Date Resolved Date Dermatochalasis of both upper eyelids 01/19/2021 01/19/2021 Goiter, unspecified 05/30/19 12 documented as of this encounter (statuses as of 12/13/2022) [facility] History of Past illness Narrative* Problem Noted Date Diagnosed Date Resolved Date Dermatochalasis of both upper eyelids 01/19/2021 01/19/2021 Goiter, unspecified 05/30/19 12 documented as of this encounter (statuses as of 01/19/2023) [facility] History of Past illness Narrative* Problem Noted Date Diagnosed Date Resolved Date Dermatochalasis of both upper eyelids 01/19/2021 01/19/2021 Goiter, unspecified 05/30/19 12 documented as of this encounter (statuses as of 01/19/2023) [facility] History of Past illness Narrative* Problem Noted Date Diagnosed Date Resolved Date Dermatochalasis of both upper eyelids 01/19/2021 01/19/2021 Goiter, unspecified 05/30/19 12 documented as of this encounter (statuses as of 01/24/2023) [facility] History of Past illness Narrative* Problem Noted Date Diagnosed Date Resolved Date Dermatochalasis of both upper eyelids 01/19/2021 01/19/2021 Goiter, unspecified 05/30/19 12 documented as of this encounter (statuses as of 03/01/2023) [facility] History of Past illness Narrative* Problem Noted Date Diagnosed Date Resolved Date Dermatochalasis of both upper eyelids 01/19/2021 01/19/2021 Goiter, unspecified 05/30/19 12 documented as of this encounter (statuses as of 04/24/2023) [facility] note* Diagnosis Psoriasis of scalp Other psoriasis [facility]* Diagnosis Skin infection- Primary Unspecified local infection of skin and subcutaneous tissue [facility]* Diagnosis Sebaceous cyst- Primary [facility]* Diagnosis Rash- Primary Rash and other nonspecific skin eruption Skin lesion Unspecified disorder of skin and subcutaneous tissue Drug rash Dermatitis due to drugs and medicines taken internally documented in this encounter [facility] note* Diagnosis Encounter for screening mammogram for breast cancer [facility] Diagnosis Mild intermittent asthma without complication Unspecified asthma documented in this encounter [facility] note* Diagnosis Short-term memory loss- Primary Memory loss Hypothyroidism, unspecified type Screening for diabetes mellitus Encounter for vitamin deficiency screening Screening for other and unspecified endocrine, nutritional, metabolic, and immunity disorders Mild intermittent asthma without complication Unspecified asthma Rash Rash and other nonspecific skin eruption Psoriasis of scalp Other psoriasis Dysphagia, unspecified type Dyslipidemia Other and unspecified hyperlipidemia Asthma in adult without complication, unspecified asthma severity, unspecified whether persistent Eczema of both external ears Screening for lipid disorders [facility]* Diagnosis Hypothyroidism, unspecified type- Primary documented in this encounter [facility] note* Diagnosis Short-term memory loss- Primary Memory loss Hyperglycemia Other abnormal glucose Hypothyroidism, unspecified type Acute otitis media, right Unspecified otitis media Dyslipidemia Other and unspecified hyperlipidemia [facility]* Diagnosis Hypothyroidism, unspecified type documented in this encounter [facility] note* Diagnosis Abnormal finding on MRI of brain- Primary Nonspecific (abnormal) findings on radiological and other examination of skull and head Meningioma (HCC) Benign neoplasm of cerebral meninges [facility] Diagnosis Meningioma (HCC)- Primary Benign neoplasm of cerebral meninges [facility] Diagnosis Meningioma (HCC) [D32.9]- Primary Benign neoplasm of cerebral meninges documented in this encounter [facility] note* 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 Mild cognitive impairment, so stated Abnormal finding on MRI of brain Nonspecific (abnormal) findings on radiological and other examination of skull and head Acquired hypothyroidism Unspecified hypothyroidism [facility] Diagnosis Eczema of both external ears [facility] Diagnosis Meningioma (HCC) Benign neoplasm of cerebral meninges [facility] Diagnosis Short-term memory loss Memory loss documented in this encounter [facility] note* Diagnosis Abnormal CT of brain Nonspecific (abnormal) findings on radiological and other examination of skull and head Brain mass Unspecified condition of brain documented in this encounter [facility] note* Diagnosis Sensorineural hearing loss, bilateral- Primary [facility] Diagnosis Mild intermittent asthma without complication Unspecified asthma Dyslipidemia Other and unspecified hyperlipidemia documented in this encounter [facility] note* Diagnosis Viral gastroenteritis- Primary Intestinal infection due to other organism, not elsewhere classified documented in this encounter [facility] for referral (narrative)* Diagnostic Procedure Only (Routine) - Pending Review Specialty Diagnoses / Procedures Referred By Tristen weaver Referred To Contact [facility] Diagnoses Encounter for screening mammogram for breast cancer Procedures JARED SCREENING SCREENING MAMMOGRAPHY BI 2-VIEW BREAST INC CAD Amado Freeman DO [address] [place] [address] [facility] [address] [place] [address] Referral ID Status Reason Start Date Expiration Date Visits Requested Visits Authorized [id number] Pending Review Auto-Generat ed Referral 09/12/2021 10/12/2022 1 1 [facility] Summary Purpose Family History No Family History Records FoundNo Family History Records Found Advance Directives No Advanced Directives Records FoundDocuments on File Type Date Recorded Patient Arts Manager Expl anation Advance Directive(s) 01/19/2021 11:33 AM Documents on File Type Date Recorded Patient Arts Manager Expl anation Advance Directive(s) 01/19/2021 11:33 AM Medications Administered Section Inactive Administered Medications - up to 3 most recent administrations Medication Order MAR Action Action Date Dose Rate Site triamcinolone acetonide 40 mg injection (KeNALog 40) 40 mg, INTRAMUSCULAR, ONCE, 1 dose, On 09/10/21 at 1230 Given 09/10/2021 12:27 PM EDT 40 mg Buttocks, Right Reason for Referral Specialty Diagnoses / Procedures Referred By Contac t Referred To Contact Neurology Diagnoses Short-term memory loss Procedures CONSULT TO NEUROLOGY OFFICE/OUTPATIENT [facility] 60-74 MINUTES Amado Freeman, DO [address] [place] [address] Referral ID Status Reason Start Date Expiration Date Visits Requested Visits Authorized [id number] Pending Review PCP Requested Referral 10/02/2022 10/02/2023 1 1 [facility] Diagnoses / [facility] Diagnoses Short-term memory loss Procedures CT BRAIN WO IVC CT HEAD/BRAIN W/O CONTRAST MATERIAL Amado Freeman, DO [address] [place] [address] Ct Imaging Referral ID Status Reason Start Date Expiration Date Visits Requested Visits Authorized [id number] Pending Review Auto-Generat ed Referral 10/02/2022 11/01/2023 1 1 [facility]ty Diagnoses / [facility] To Contact Neurosurgery Diagnoses Abnormal finding on MRI of brain Meningioma (HCC) Procedures CONSULT TO NEUROSURGERY OFFICE/OUTPATIENT [facility] 60-74 MINUTES Amado Freeman, DO [address] [place] [address] Referral ID Status Reason Start Date Expiration Date Visits Requested Visits Authorized [id number] Pending Review PCP Requested Referral 11/15/2022 11/15/2023 1 1 Specialty Diagnoses / Procedures Referred By Contac t Referred To Contact Diagnoses Meningioma (HCC) Procedures CONSULT TO NEURO ONCOLOGY OFFICE/OUTPATIENT [facility] 60-74 MINUTES Lynn Sheth MD [address] [place] [address] Referral ID Status Reason Start Date Expiration Date Visits Requested Visits Authorized [id number] Pending Review PCP Requested Referral 11/25/2022 11/25/2023 1 1 Specialty Diagnoses / Procedures Referred By Contac t Referred To Contact CT IMAGING Diagnoses Short-term memory loss Procedures CT BRAIN WO IVCON CT HEAD/BRAIN W/O CONTRAST MATERIAL Amado Freeman, DO [address] [place] [address] Ct [facility] [place] [address] Referral ID Status Reason Start Date Expiration Date V isits Requested Visits Authorized [id number] Closed Auto-Generate d Referral 10/09/2022 12/08/2022 1 1 Specialty Diagnoses / Procedures Referred By Contac t Referred To Contact MR IMAGING Diagnoses Abnormal CT of brain Brain mass Procedures MRI BRAIN WO/W IVCON MRI BRAIN BRAIN STEM W/O W/CONTRAST MATERIAL Amado Freeman, DO [address] [place] [address] Mr [facility] [place] [address] Referral ID Status Reason Start Date Expiration Date V isits Requested Visits Authorized [id number] Closed Auto-Generate d Referral 11/07/2022 01/06/2023 1 1 Specialty Diagnoses / Procedures Referred By Contac t Referred To Contact Procedures HEARING TEST/AUDIOGRAM COMPRE AUDIOMETRY THRESHOLD EVAL SP RECOGNIJ Pollo [place], AUD [address] [place] [address] [facility] [address] [place] [id number] Referral ID Status Reason Start Date Expiration Date Visits Requested Visits Authorized [id number] Pending Review Auto-Generat ed Referral 01/23/2023 01/24/2024 1 1 Additional Source Comments INFORMATION SOURCE (unrecogn ized section and content) DATE CREATED AUTHOR AUTHOR'S ORGANIZ ATION 04/25/2023 [facility] Source Comments (unrecognize d section and content) In the event this informatio n is protected by the Federal Confidentiality of Alcohol and Drug Abuse Patient Records regulations: The Federal rules restrict any use of the information to criminally investigate or prosecute any alcohol or drug abuse patient.[facility] the event this information is protected by the Federal Confidentiality of Alcohol and Drug Abuse Patient Records regulations: The Federal rules restrict any use of the information to criminally investigate or prosecute any alcohol or drug abuse patient.[facility] the event this information is protected by the Federal Confidentiality of Alcohol and Drug Abuse Patient Records regulations: The Federal rules restrict any use of the information to criminally investigate or prosecute any alcohol or drug abuse patient.[facility] the event this information is protected by the Federal Confidentiality of Alcohol and Drug Abuse Patient Records regulations: The Federal rules restrict any use of the information to criminally investigate or prosecute any alcohol or drug abuse patient.[facility] the event this information is protected by the Federal Confidentiality of Alcohol and Drug Abuse Patient Records regulations: The Federal rules restrict any use of the information to criminally investigate or prosecute any alcohol or drug abuse patient.[facility] the event this information is protected by the Federal Confidentiality of Alcohol and Drug Abuse Patient Records regulations: The Federal rules restrict any use of the information to criminally investigate or prosecute any alcohol or drug abuse patient.[facility] the event this information is protected by the Federal Confidentiality of Alcohol and Drug Abuse Patient Records regulations: The Federal rules restrict any use of the information to criminally investigate or prosecute any alcohol or drug abuse patient.[facility] the event this information is protected by the Federal Confidentiality of Alcohol and Drug Abuse Patient Records regulations: The Federal rules restrict any use of the information to criminally investigate or prosecute any alcohol or drug abuse patient.[facility] the event this information is protected by the Federal Confidentiality of Alcohol and Drug Abuse Patient Records regulations: The Federal rules restrict any use of the information to criminally investigate or prosecute any alcohol or drug abuse patient.[facility] the event this information is protected by the Federal Confidentiality of Alcohol and Drug Abuse Patient Records regulations: The Federal rules restrict any use of the information to criminally investigate or prosecute any alcohol or drug abuse patient.[facility] the event this information is protected by the Federal Confidentiality of Alcohol and Drug Abuse Patient Records regulations: The Federal rules restrict any use of the information to criminally investigate or prosecute any alcohol or drug abuse patient.[facility] the event this information is protected by the Federal Confidentiality of Alcohol and Drug Abuse Patient Records regulations: The Federal rules restrict any use of the information to criminally investigate or prosecute any alcohol or drug abuse patient.[facility] the event this information is protected by the Federal Confidentiality of Alcohol and Drug Abuse Patient Records regulations: The Federal rules restrict any use of the information to criminally investigate or prosecute any alcohol or drug abuse patient.[facility] the event this information is protected by the Federal Confidentiality of Alcohol and Drug Abuse Patient Records regulations: The Federal rules restrict any use of the information to criminally investigate or prosecute any alcohol or drug abuse patient.[facility] the event this information is protected by the Federal Confidentiality of Alcohol and Drug Abuse Patient Records regulations: The Federal rules restrict any use of the information to criminally investigate or prosecute any alcohol or drug abuse patient.[facility] the event this information is protected by the Federal Confidentiality of Alcohol and Drug Abuse Patient Records regulations: The Federal rules restrict any use of the information to criminally investigate or prosecute any alcohol or drug abuse patient.[facility] the event this information is protected by the Federal Confidentiality of Alcohol and Drug Abuse Patient Records regulations: The Federal rules restrict any use of the information to criminally investigate or prosecute any alcohol or drug abuse patient.[facility] the event this information is protected by the Federal Confidentiality of Alcohol and Drug Abuse Patient Records regulations: The Federal rules restrict any use of the information to criminally investigate or prosecute any alcohol or drug abuse patient.[facility] the event this information is protected by the Federal Confidentiality of Alcohol and Drug Abuse Patient Records regulations: The Federal rules restrict any use of the information to criminally investigate or prosecute any alcohol or drug abuse patient.[facility] the event this information is protected by the Federal Confidentiality of Alcohol and Drug Abuse Patient Records regulations: The Federal rules restrict any use of the information to criminally investigate or prosecute any alcohol or drug abuse patient.[facility] the event this information is protected by the Federal Confidentiality of Alcohol and Drug Abuse Patient Records regulations: The Federal rules restrict any use of the information to criminally investigate or prosecute any alcohol or drug abuse patient.[facility] the event this information is protected by the Federal Confidentiality of Alcohol and Drug Abuse Patient Records regulations: The Federal rules restrict any use of the information to criminally investigate or prosecute any alcohol or drug abuse patient.[facility] the event this information is protected by the Federal Confidentiality of Alcohol and Drug Abuse Patient Records regulations: The Federal rules restrict any use of the information to criminally investigate or prosecute any alcohol or drug abuse patient.[facility] the event this information is protected by the Federal Confidentiality of Alcohol and Drug Abuse Patient Records regulations: The Federal rules restrict any use of the information to criminally investigate or prosecute any alcohol or drug abuse patient.[facility] Reason for Visit (unrecogniz ed section and content) Specialty Diagnoses / Procedures Referred By Contac t Referred To Contact Diagnoses Meningioma (HCC) Procedures CONSULT TO NEURO ONCOLOGY OFFICE/OUTPATIENT [facility] 60-74 MINUTES Lynn Sheth MD [address] [place] [address] Referral ID Status Reason Start Date Expiration Date Visits Requested Visits Authorized [id number] Pending Review PCP Requested Referral 11/25/2022 11/25/2023 1 1 Reason Onset Date Comments Refill Request 07/10/2021 Reason Comments Rash under R breast x4 da ys Reason Comments Mass under rt breast. see n in urgent care was given atb. took and finished no improvement Reason Comments Rash itchy & burning sens ation Reason Comments Medication Problem not covered by insur ance Reason Comments Refill Request Reason Comments Follow Up Anxiety/dementia- fo rgetting things Reason Comments Results Reason Comments 6 Month Exam Reason Comments Results Reason Comments Triage Internal Referral Specialty Diagnoses / Procedures Referred By Contac t Referred To Contact Neurology Diagnoses Short-term memory loss Procedures CONSULT TO NEUROLOGY OFFICE/OUTPATIENT [facility] 60-74 MINUTES Amado Freeman DO [address] [place] [address] Referral ID Status Reason Start Date Expiration Date Visits Requested Visits Authorized [id number] Pending Review PCP Requested Referral 10/02/2022 10/02/2023 1 1 Reason Comments Medication Problem Reason Comments Medication Question Reason Comments Radiology CT Specialty Diagnoses / Procedures Referred By Contac t Referred To Contact CT IMAGING Diagnoses Short-term memory loss Procedures CT BRAIN WO IVCON CT HEAD/BRAIN W/O CONTRAST MATERIAL Amado Freeman, DO [address] [place] [address] [facility] [place] [address] Referral ID Status Reason Start Date Expiration Date V isits Requested Visits Authorized [id number] Closed Auto-Generate d Referral 10/09/2022 12/08/2022 1 1 Specialty Diagnoses / Procedures Referred By Contac t Referred To Contact MR IMAGING Diagnoses Abnormal CT of brain Brain mass Procedures MRI BRAIN WO/W IVCON MRI BRAIN BRAIN STEM W/O W/CONTRAST MATERIAL Amado Freeman, DO [address] [place] [address] [facility] [place] [address] Referral ID Status Reason Start Date Expiration Date V isits Requested Visits Authorized [id number] Closed Auto-Generate d Referral 11/07/2022 01/06/2023 1 1 Reason Comments Hearing Test dementia/tumor outsi de of brain Ear Problem drainage, clear, lef t > right Specialty Diagnoses / Procedures Referred By Contac t Referred To Contact Diagnoses Meningioma (HCC) Procedures HEARING TEST/AUDIOGRAM COMPRE AUDIOMETRY THRESHOLD MIRZAAL Melissa Clifford MD [address] [place] [address] [facility] [address] [place] [address] Referral ID Status Reason Start Date Expiration Date V isits Requested Visits Authorized [id number] Closed Auto-Generate d Referral 12/13/2022 03/13/2023 1 1 Reason Onset Date Comments Refill Request 02/27/2023 Reason Comments Acute Visit diarrhea x 2 days Care Teams (unrecognized sec tion and content) Plant Operator Relationship Specialty Start Date End Date Amado Freeman DO [address], [place] [address] PCP - General Family Practice 06/06/15 Plant Operator Relationship Specialty Start Date End Date Amado Freeman DO [address], [place] [address] PCP - General Family Practice 06/06/15 Plant Operator Relationship Specialty Start Date End Date Amado Freeman DO [address] [place] [address] PCP - General Family Practice 06/06/15 Plant Operator Relationship Specialty Start Date End Date Amado Freeman DO [address] [place] [address] PCP - General Family Practice 06/06/15 Plant Operator Relationship Specialty Start Date End Date Amado Freeman DO [address] [place] [address] PCP - General Family Medicine 06/06/15 Plant Operator Relationship Specialty Start Date End Date Amado Freeman DO [address] [place] [address] PCP - General Family Medicine 06/06/15 Plant Operator Relationship Specialty Start Date End Date Amado Freeman DO [address] [place] [address] PCP - General Family Medicine 06/06/15 Plant Operator Relationship Specialty Start Date End Date Amado Freeman DO [address] [place] [address] PCP - General Family Medicine 06/06/15 Plant Operator Relationship Specialty Start Date End Date Amado Freeman DO [address] [place] [address] PCP - General Family Medicine 06/06/15 Plant Operator Relationship Specialty Start Date End Date Amado Freeman DO [address] [place] [address] PCP - General Family Medicine 06/06/15 Plant Operator Relationship Specialty Start Date End Date Amado Freeman DO [address] [place] [address] PCP - General Family Medicine 06/06/15 Plant Operator Relationship Specialty Start Date End Date Amado Freeman, [address] [place] [address] PCP - General Family Medicine 06/06/15 Plant Operator Relationship Specialty Start Date End Date Amado Freeman, [address] [place] [address] PCP - General Family Medicine 06/06/15 Plant Operator Relationship Specialty Start Date End Date Amado Freeman DO [address] [place] [address] PCP - General Family Medicine 06/06/15 Plant Operator Relationship Specialty Start Date End Date Amado Freeman DO [address] [place] [address] PCP - General Family Medicine 06/06/15 Plant Operator Relationship Specialty Start Date End Date Amado Freeman DO [address] [place] [address] PCP - General Family Medicine 06/06/15 Plant Operator Relationship Specialty Start Date End Date Amado Freeman DO [address] [place] [address] PCP - General Family Medicine 06/06/15 Plant Operator Relationship Specialty Start Date End Date Amado Freeman DO [address] [place] [address] PCP - General Family Medicine 06/06/15 Plant Operator Relationship Specialty Start Date End Date Amado Freeman DO [address] [place] [address] PCP - General Family Medicine 06/06/15 Plant Operator Relationship Specialty Start Date End Date Amado FreemanDO [address] [place] [address] PCP - General Family Medicine 06/06/15 FOR RECORDS PERTAINING TO PATIENTS WHO ARE OR HAVE BEEN ENROLLED IN A CHEMICAL DEPENDENCY/SUBSTANCEABUSE PROGRAM, SOME INFORMATION MAY BE OMITTED. This clinical summary was aggregated from multiple sources. Caution should be exercised in using it in the provision of clinical care. This summary normalizes information from multiple sources, and as a consequence, information in this document may materially change the coding, format and clinical context of patient data. In addition, data may be omitted in some cases. CLINICAL DECISIONS SHOULD BE BASED ON THE PRIMARY CLINICAL RECORDS. [facility]. provides no warranty or guarantee of the accuracy or completeness of information in this document.
[2023-04-26 11:53] LABS: Absolute Lymphocyte Count 0.75 X10^3/uL (0.83-4.51); Absolute Neutrophil Count 2.7 X10^3/uL (2.0-7.7); Basophil# 0.01 X10^3/uL; Basophil% 0.2 % (0-1); Eosinophil# 0.05 X10^3/uL; Eosinophils% 1.2 % (0-5); Hematocrit 45.1 % (37-47); Hemoglobin 15.1 g/dL (12.0-15.0); Lymphocyte # 0.75 X10^3/ul (0.83-4.51); Lymphocyte % 18.4 % (19-41); Mean Corp Hgb Conc 33.5 g/dL (32-36); Mean Corpuscular Hgb 28.4 pg (27.0-32.0); Mean Corpuscular Volume 84.9 fL (81-99); Mean Platelet Vol. 9.8 fl (6.2-12.0); Monocyte# 0.58 X10^3/uL; Monocyte% 14.2 % (0-10); NRBC Flagged by Analyzer 0 % (0-5); Neutrophil # 2.68 X10^3/uL (2.7-7.7); Neutrophil % 65.8 % (47-70); Platelet Count 317 K/mm3 (150-450); RBC Distribution Width CV 13.1 % (11.6-14.6); RBC Distribution Width SD 40.7 fl (35.1-43.9); Red Blood Count 5.31 M/mm3 (4.2-5.4); White Blood Count 4.1 K/mm3 (4.4-11.0)
[2023-04-26 11:58] LABS: ALB/GLOB Ratio 0.9 RATIO (0.9-2.4); AST(SGOT) 19 U/L (15-37); Alanine Aminotransfer ALT/SGPT 31 U/L (13-56); Albumin, Serum 3.4 g/dL (3.2-5.0); Alkaline Phosphatase 83 U/L (45-117); Anion Gap 14 (5-15); BUN 21 mg/dL (7-18); BUN/Creat Ratio 19.8 RATIO (10-20); Calcium,Total 8.1 mg/dL (8.5-10.1); Chloride 98 mmol/L (98-107); Creatinine, Serum 1.06 mg/dL (0.55-1.02); EST Glomerular Filtration Rate 54 mL/min (>60); Est Glom Filt Rate - Afr Amer 65 mL/min (>60); Estimated Creatinine Clearance 46.84 ml/min; Globulin 3.8 g/dL (2.2-4.2); Glucose 97 mg/dL (74-106); Potassium 3.2 mmol/L (3.5-5.1); Protein, Total 7.2 g/dL (6.4-8.2); Sodium Level 135 mmol/L (136-145)
[2023-04-26] MEDS: Ciprofloxacin 500 MG Tablet PO (15:22)
== END 2023-04-26 15:24 | disposition home or self-care (01) ==
PROVIDERS: Nurse Practitioner; Emergency Provider Emergency Medicine; PCP Student in an Organized Health Care Education/Training Program; Visit Provider Emergency Medicine
DX: R19.7 Diarrhea, unspecified (principal); Z87.891 Personal history of nicotine dependence; E03.9 Hypothyroidism, unspecified; Z79.899 Other long term (current) drug therapy
CPT/HCPCS: 80053; 83630; 85025; 87177; 87209; 87493; 87506; 96360; 96361; 99283; J7030; A4216

== ENCOUNTER 2023-05-02 13:58 | Emergency (ER) | payer MEDICARE, SELFPAY ==
[2023-05-02 14:00] VITALS: BP 133/70; PULSE 79; RESP 16; TEMP 36.2; O2SAT 99; BMI 27.8
--- NOTE | 2023-05-02 15:24 | CT_ITS ---
INDICATION: diarrhea, EXAMINATION: CT Abdomen And Pelvis W/O Contrast Injection TECHNIQUE: Helically acquired images were obtained of the abdomen and pelvis without the use of IV contrast. A radiation dose optimization technique was used for this scan. Oral contrast: None. COMPARISON: None FINDINGS: Evaluation of the solid organs and vascular structures is limited without intravenous contrast. Visualized lung bases: Unremarkable Liver: Few scattered simple cysts. Slightly nodular liver contour could represent early cirrhosis. Gallbladder: Unremarkable Spleen: Unremarkable Pancreas: Unremarkable Adrenal Glands: Unremarkable Kidneys: Unremarkable Vasculature: Moderate aortoiliac atherosclerotic disease. GI Tract: Small hiatal hernia. Lymphadenopathy: None Peritoneum: No ascites. Bladder: Unremarkable Reproductive organs: Unremarkable Bones/Soft tissues: Mild scattered degenerative changes of the visualized spine. Small left fat-containing inguinal hernia. CT/Abdomen/Pelvis without Cont IMPRESSION: No acute abnormalities in the abdomen or pelvis. Slightly nodular liver contour could represent early cirrhosis. Small left fat-containing inguinal hernia. Electronically Signed: Javan Jade MD at 16:38 EST ,
[2023-05-02] MEDS: 0.9% Normal Saline (1000mL) 1,000 ML 1000 ML IV (16:18)
[2023-05-02 16:44] LABS: Absolute Lymphocyte Count 0.62 X10^3/uL (0.83-4.51); Absolute Neutrophil Count 8.6 X10^3/uL (2.0-7.7); Basophil# 0.08 X10^3/uL; Basophil% 0.8 % (0-1); Eosinophil# 0.03 X10^3/uL; Eosinophils% 0.3 % (0-5); Hematocrit 48.3 % (37-47); Lymphocyte # 0.62 X10^3/ul (0.83-4.51); Lymphocyte % 6.3 % (19-41); Mean Corp Hgb Conc 33.1 g/dL (32-36); Mean Corpuscular Hgb 27.4 pg (27.0-32.0); Mean Corpuscular Volume 82.8 fL (81-99); Mean Platelet Vol. 11.2 fl (6.2-12.0); Monocyte# 0.49 X10^3/uL; NRBC Flagged by Analyzer 0 % (0-5); Neutrophil # 8.61 X10^3/uL (2.7-7.7); Neutrophil % 87.1 % (47-70); Platelet Count 369 K/mm3 (150-450); RBC Distribution Width SD 38.5 fl (35.1-43.9); Red Blood Count 5.83 M/mm3 (4.2-5.4); White Blood Count 9.9 K/mm3 (4.4-11.0)
--- NOTE | 2023-05-02 16:56 | ED.VIS.GI ---
HPI HPI - GI History of Present Illness Chief Complaint: Diarrhea Informant: patient Narrative Narrative: Patient is a 77-year-old female with history of hypothyroidism presenting with ongoing diarrhea. Patient started having diarrhea approximately 10 days ago. She states she is having 2-3 liquid bowel movements a day that are yellow and green. Has had some increased belching but no specific abdominal pain. No report of any fever. Was actually seen in our ER earlier in the week for the same symptoms. At that time she had lab work and stool studies. Workup was largely normal and she was empirically placed on a course of ciprofloxacin. She has not had any improvement. They called her primary care doctor today who recommend she come to the ER to be evaluated further for dehydration. Patient has been drinking water but has had decreased oral intake. She was recently in [facility] between April 13 through April 20. The symptoms started 2 days after that. They are not sure if they came in contact with some parasite and are wondering if she could have Giardia. No other sick contacts have been reported. No other complaints at this time. [facility] Medical History Hypothyroid Home Medications montelukast 10 mg tablet 10 mg PO DAILY 06/10/13 [History Last Taken Unknown] ciprofloxacin HCl 500 mg tablet (Cipro) 500 mg PO BID #10 tabs 04/26/23 [Rx Last Taken Unknown] loperamide 2 mg capsule (Imodium A-D) 2 mg PO Q6H PRN loose stool #20 caps 04/26/23 [Rx Last Taken Unknown] ezetimibe 10 mg tablet 10 mg PO DAILY 05/02/23 [History Last Taken Unknown] fluticasone propionate 44 mcg/actuation HFA aerosol inhaler 1 inh inhalation BID 05/02/23 [History Last Taken Unknown] ketoconazole 2 % shampoo 1 applic topical 05/02/23 [History Last Taken Unknown] levothyroxine 150 mcg tablet 150 mcg PO DAILY 05/02/23 [History Last Taken Unknown] potassium chloride 20 mEq tablet,extended release(part/cryst) 20 meq PO DAILY #5 tabs 05/02/23 [Rx Last Taken Unknown] Allergy/AdvReac Type Severity Reaction Status Date / Time iodine Allergy Rash Verified 05/02/23 14:03 naproxen Allergy Other Verified 05/02/23 14:03 Social History Smoking Status: Former smoker ROS ROS ED Constitutional Constitutional ED: Denies chills or fever(s) Respiratory/Chest Respiratory/Chest: Denies cough Gastrointestinal Gastrointestinal: Reports diarrhea; Denies abdominal pain, nausea or vomiting Musculoskeletal Musculoskeletal: Denies arthralgias or myalgias Integumentary Denies rash Neurologic Neurologic: Denies headache(s) or weakness EXAM Physical Exam Const Vital Signs: 05/02/23 14:00 05/02/23 17:11 Temperature 97.2 F L Temperature Source Temporal Pulse Rate 79 68 Respiratory Rate 16 14 Blood Pressure 133/70 H 135/59 H Blood Pressure Mean 91 84 Pulse Ox 99 96 Oxygen Delivery Method Room Air Room Air Positive well nourished and well developed General Appearance ED: well developed; Negative for pallor HEENT Reports moist mucous membranes Neck supple Resp normal respiratory effort and clear to auscultation bilaterally Cardio regular rate and regular rhythm GI non-tender and non-distended Inspection: Negative for abdominal distention Auscultation: normoactive bowel sounds Palpation: soft; Negative for tender or guarding Extremity full ROM Neuro Sensorium / Orientation: alert, oriented to person, oriented to place and oriented to time Motor Exam: Negative for general weakness Psych mental status grossly normal and thought process normal Skin no wounds General Skin Exam: Negative for jaundice or pallor MDM MDM MDM Narrative Medical decision making narrative: Patient is evaluated for continued diarrhea. Is well-appearing. Mildly dry mucosal membranes. Vital signs are normal. Abdomen soft and nontender. Given 10 days of symptoms did obtain CT for concerns of possible colitis. This is negative for acute process. Will send off for ova and parasite because of their concern for Giardia. Patient is given IV fluids in the ER. At this time CBC has resulted which likely shows some hemoconcentration but no acute leukocytosis. CMP shows a very mild hyponatremia of 133 but more significant hypokalemia with a potassium of 2.3. This is downtrending compared to 3.2 a week ago. TSH is normal. Bicarb is normal. No suspicion of metabolic acidosis. Patient ozzie pretty asymptomatic in the ER. Was able to review prior ER records and patient actually had an ova and parasite test that was negative on her last visit and resulted yesterday. Will give oral and IV replacement. Discussed admission versus outpatient treatment and they elected to be treated outpatient. Will continue Imodium or try Pepto-Bismol for the diarrhea. Will call PCP on Friday for repeat potassium check. Will start on oral potassium supplements. Kidney function is normal and I have a low suspicion for hyperkalemia at this time. Discussed increasing potassium in the diet. Patient and agreeable with plan of care. Discharged home in stable condition. Is given outpatient GI follow-up as well given his ongoing diarrhea. Lab Data Attestation: I reviewed the patient's lab results. Labs: Laboratory Results - last 24 hr 05/02/23 16:05 WBC 9.9 RBC 5.83 H Hgb 16.0 H Hct 48.3 H MCV 82.8 MCH 27.4 MCHC 33.1 RDW Std Deviation 38.5 RDW Coeff of Rik 13.0 Plt Count 369 MPV 11.2 Immature Gran % (Auto) 0.500 Neut % (Auto) 87.1 H Lymph % (Auto) 6.3 L [place] % (Auto) 5.0 Eos % (Auto) 0.3 Baso % (Auto) 0.8 Absolute Neuts (auto) 8.6 H Absolute Lymphs (auto) 0.62 L Nucleated RBC % 0 Sodium 133 L Potassium 2.3 L* Chloride 92 L Carbon Dioxide 30.0 Anion Gap 11 BUN 7 Creatinine 0.95 Estim Creat Clear Calc 52.15 Est GFR (MDRD) Af Amer 73 Est GFR (MDRD) Non-Af 61 BUN/Creatinine Ratio 7.3 L Glucose 106 Calcium 8.6 Total Bilirubin 0.60 AST 26 ALT 23 Alkaline Phosphatase 71 Total Protein 7.4 Albumin 3.5 Globulin 3.9 Albumin/Globulin Ratio 0.9 Lipase 24 TSH 5.23 H Radiography Diagnostic Testing: Clinical Impression(s) from Imaging Studies Abdomen/Pelvis CT 05/02/23 15:24 IMPRESSION: No acute abnormalities in the abdomen or pelvis. Slightly nodular liver contour could represent early cirrhosis. Small left fat-containing inguinal hernia. Electronically Signed: Javan Jade MD at 16:38 EST , Discharge Plan Triage Chief Complaint: Diarrhea ED Provider: Saloni Samson Dx/Rx/DC Orders Clinical Impression: Diarrhea, travelers', Acute hypokalemia Instructions: ED Diarrhea, Unknown Cause, ED Hypokalemia, ED Potassium-Rich Foods Prescriptions: New potassium chloride 20 mEq tablet,ER particles/crystals 20 meq PO DAILY Qty: 5 0RF No Action montelukast 10 MG tablet 10 mg PO DAILY ciprofloxacin HCl [Cipro] 500 mg tablet 500 mg PO BID Qty: 10 0RF loperamide [Imodium A-D] 2 mg capsule 2 mg PO Q6H PRN (Reason: loose stool) Qty: 20 0RF ezetimibe 10 mg tablet 10 mg PO DAILY fluticasone propionate 44 mcg/actuation HFA aerosol inhaler 1 inh inhalation BID ketoconazole 2 % shampoo 1 applic TOPICAL levothyroxine 150 mcg tablet 150 mcg PO DAILY Primary Care Provider: Amado Fabian Referrals: Amado Fabian DO [Primary Care Provider] - FriendQuintin DO [Med Staff - Active Staff] - As soon as possible Activity Restrictions/Additional Instructions: Please follow-up with your primary care doctor's office on Friday. Let them know that we are recommending repeat potassium levels as your potassium level is low today (2.3). You were given IV and oral potassium as well as a prescription for 5 days of oral potassium. Try to increase your potassium in your diet and make sure you are getting plenty of fluids. If your symptoms worsen especially if you develop fever, blood in your stool or abdominal pain to the emergency room. You can continue to take [id number] Imodium or try Pepto-Bismol to help with your diarrhea.
--- OUTSIDE RECORDS SUMMARY | 2023-05-02 16:57 | XMS RPT_ITS | CCD ---
Author Name Unknown Address [address] [place] [address] Organization [facility] Care Team Providers Care Tester Waste Disposal Leakage Name Role Phone Amado Freeman DO Primary Care Provider AMADO FREEMAN Primary Care Unavailable MISTI ARCOS Attending Unavailable AMADO FREEMAN Primary Care Unavailable AMADO FREEMAN Referring Unavailable AMADO FREEMAN Primary Care Unavailable AMADO FREEMAN Referring Unavailable CHAY SARGENT Referring Unavailable AMADO FREEMAN Primary Care Unavailable AMADO FREEAMN Primary Care Unavailable AMADO FREEMAN Referring Unavailable AMADO FREEMAN Primary Care Unavailable AMADO FREEMAN Attending Unavailable AMADO FREEMAN Primary Care Unavailable SINDHU QUINTANA Attending Unavailable AMADO FREEMAN Primary Care Unavailable HAYLEY, MELISSA R Referring Unavailable POLLO ZHANG Attending Unavaila ble AMADO FREEMAN Primary Care Unavailable LYNN SHETH Referring Unavailable MELISSA MUNOZ Attending Unavailable AMADO FREEMAN Primary Care Unavailable Allergies Allergy Classification Reported Allergen(s) Allergy Type Date of Onset Reaction(s) Facility (20 sources) Iodine; Translations: [IODINE] Drug Allergy 5 [facility] Work Phone: (20 sources) Naproxen; Translations: [NAPROXEN] Drug Allergy 5 Shortness of Breath [facility] Work Phone: (20 sources) Sulfonamides (Antibiotic); Translations: [SULFA (SULFONAMIDE ANTIBIOTICS)] Drug Intolerance 2 [facility] Work Phone: Medications Current Medications Medication Drug [...] Drug Class(es) Dates Sig (Normalized) Sig (Original) [id number] 200 actuat albuterol 0.09 mg/actuat metered dose [...] Translations: [Other hemorrhoids] 10-23-2005 Episodic Intestinal infection (2 sources) Viral gastroenteritis; Translations: [Viral intestinal infection, unspecified] Onset: 04-24-2023 04-24-2023 Episodic Other and unspecified benign neoplasm [...] 09:24-0500 Body weight 79.38 kg Sindhu Quintana APRN.GLORIA Work Phone: [facility] 04-24-2023 09:24-0500 Diastolic blood pressure 84 mm[Hg] Sindhu Quintana APRN.GLORIA Work Phone: [facility] 04-24-2023 09:24-0500 Heart rate 79 /min Sindhu Quintana APRN.[employer] Work Phone: [facility] 04-24-2023 09:24-0500 Respiratory rate 16 /min Sindhu Quintana APRN.[employer] Work Phone: [facility] 04-24-2023 09:24-0500 SaO2% (BldA) [Mass fraction] 96 % Sindhu Quintana APRN.[employer] Work Phone: [facility] 04-24-2023 09:24-0500 Systolic blood pressure 120 mm[Hg] Sindhu Quintana APRN.[employer] Work Phone: [facility] 12-13-2022 10:43-0400 Body height 163.1 cm Melissa Munoz MD Work Phone: [facility] 12-13-2022 10:43-0400 Body temperature 97.59 [degF] Melissa Munoz MD Work Phone: [facility] 12-13-2022 10:43-0400 Body weight 81.6 kg Melissa Munoz MD Work Phone: [facility] 12-13-2022 10:43-0400 Diastolic blood pressure 68 mm[Hg] Melissa Munoz MD Work Phone: [facility] 12-13-2022 10:43-0400 Heart rate 66 /min Melissa Munoz MD Work Phone: [facility] 12-13-2022 10:43-0400 Respiratory rate 18 /min Melissa Munoz MD Work Phone: [facility] 12-13-2022 10:43-0400 SaO2% (BldA) [Mass fraction] 100 % Melissa Munoz MD Work Phone: [facility] 12-13-2022 10:43-0400 Systolic blood pressure 185 mm[Hg] Melissa Munoz MD Work Phone: [facility] 11-27-2022 09:24-0400 Body weight 82.15 kg Misti Arcos MD Work Phone: [facility] 11-27-2022 09:24-0400 Diastolic blood pressure 69 mm[Hg] Misti Arcos MD Work Phone: [facility] 11-27-2022 09:24-0400 Heart rate 60 /min Misti Arcos MD Work Phone: [facility] 11-27-2022 09:24-0400 Systolic blood pressure 139 mm[Hg] Misti Arcos MD Work Phone: [facility] 10-02-2022 10:38-0400 Body temperature 96.3 [degF] Amado Freeman DO Work Phone: [facility] 10-02-2022 10:38-0400 Body weight 83.46 kg Amado Freeman DO Work Phone: [facility] 10-02-2022 10:38-0400 Diastolic blood pressure 70 mm[Hg] Amado Freeman DO Work Phone: [facility] 10-02-2022 10:38-0400 Heart rate 72 /min Amado Freeman DO Work Phone: [facility] 10-02-2022 10:38-0400 Respiratory rate 16 /min Amado Freeman DO Work Phone: [facility] 10-02-2022 10:38-0400 Systolic blood pressure 124 mm[Hg] Amado Freeman DO Work Phone: [facility] 04-03-2022 08:43-0500 Body weight 84.91 kg Chay Rosetta [employer] Work Phone: [facility] 04-03-2022 08:43-0500 Diastolic blood pressure 90 mm[Hg] Chay Rosetta [employer] Work Phone: [facility] 04-03-2022 08:43-0500 Heart rate 76 /min Chay Rosetta [employer] Work Phone: [facility] 04-03-2022 08:43-0500 Respiratory rate 16 /min Chay Rosetta [employer] Work Phone: [facility] 04-03-2022 08:43-0500 SaO2% (BldA) [Mass fraction] 98 % Chay Rosetta [employer] Work Phone: [facility] 04-03-2022 08:43-0500 Systolic blood pressure 142 mm[Hg] Chay Rosetta [employer] Work Phone: [facility] 09-10-2021 09:49-0400 Body weight 78.93 kg Chay Rosetta [employer] Work Phone: [facility] 09-10-2021 09:49-0400 Diastolic blood pressure 70 mm[Hg] Chay Rosetta [employer] Work Phone: [facility] 09-10-2021 09:49-0400 Heart rate 87 /min Chay Rosetta [employer] Work Phone: [facility] 09-10-2021 09:49-0400 Respiratory rate 16 /min Chay Rosetta [employer] Work Phone: [facility] 09-10-2021 09:49-0400 SaO2% (BldA) [Mass fraction] 98 % Chay Rosetta [employer] Work Phone: [facility] 09-10-2021 09:49-0400 Systolic blood pressure 136 mm[Hg] Chay Rosetta [employer] Work Phone: [facility] 08-30-2021 11:12-0400 Body weight 79.74 kg Polina Zurawick [employer] Work Phone: [facility] 08-30-2021 11:12-0400 Diastolic blood pressure 60 mm[Hg] Polina Zurawick [employer] Work Phone: [facility] 08-30-2021 11:12-0400 Heart rate 72 /min Polina Zurawick [employer] Work Phone: [facility] 08-30-2021 11:12-0400 Respiratory rate 16 /min Polina Zurawick [employer] Work Phone: [facility] 08-30-2021 11:12-0400 Systolic blood pressure 130 mm[Hg] Polina Zurawick [employer] Work Phone: [facility] 08-20-2021 11:10-0400 Body temperature 97.7 [degF] Mirela Cochran [employer] Work Phone: [facility] 08-20-2021 11:10-0400 Body weight 80.11 kg Mirela Praisler-Lucio [employer] Work Phone: [facility] 08-20-2021 11:10-0400 Diastolic blood pressure 100 mm[Hg] Mirela Praisler-Wood [employer] Work Phone: [facility] 08-20-2021 11:10-0400 Heart rate 74 /min Mirela Praisler-Wood [employer] Work Phone: [facility] 08-20-2021 11:10-0400 Respiratory rate 20 /min Mirela Praisler-Wood [employer] Work Phone: [facility] 08-20-2021 11:10-0400 SaO2% (BldA) [Mass fraction] 98 % Mirela Praisler-Wood [employer] Work Phone: [facility] 08-20-2021 11:10-0400 Systolic blood pressure 160 mm[Hg] Mirela Praisler-Lucio [employer] Work Phone: [facility] Encounters Encounter Date Encounter Type Care Provider Facility Start: 04-26-2023 End: 04-26-2023 ambulatory AMADO FREEMAN Facility:[facility] Start: 04-24-2023 End: 04-25-2023 ambulatory SINDHU QUINTANA Facility:[facility] Start: 04-24-2023 End: 04-24-2023 Patient encounter procedure Sindhu Quintana [employer] Work Phone: [facility] [place] Procedures Date Procedure Procedure Detail Performing Clinician Start: 01-23-2023 HEARING TEST/AUDIOGRAM Pollo GIL Work Phone: Start: 11-15-2022 Mri brain brain stem w/o w/contrast material Amado Freeman DO Work Phone: Start: 10-16-2022 Ct head/brain w/o co ntrast material Amado Freeman DO Work Phone: Start: 04-03-2022 Lipid 1996 panel - S barrera or Plasma Misti Arcos MD Work Phone: Start: 08-30-2021 Adult depression scr eening assessment Polinaalvaro Mendozarick [employer] Work Phone: Start: 10-02-2017 Mammography Amado junior DO Work Phone: Start: 06-30-2014 Colonoscopy Amado junior DO Work Phone: Plan of Treatment Date Care Activity Detail Author Start: 04-03-2027 Lipid 1996 panel - Serum or Plasma Lipid Screening [facility] Start: 04-03-2027 Lipid panel Lipid Screening [facility] Start: 04-03-2027 LIPID SCREEN LIPID SCREEN [facility] Start: 10-03-2025 DIABETES SCREEN DIABETES SCREEN [facility] Start: 10-03-2025 Diabetes Screening Diabetes Screenin g [facility] Start: 04-03-2025 DIABETES SCREEN DIABETES SCREEN [facility] Start: 04-24-2024 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 Disease Visit Annual PCP Team Chronic Disease Visit [facility] Start: 01-09-2024 DIABETES SCREEN DIABETES SCREEN [facility] Start: 10-03-2023 ANNUAL PCP TEAM HR INTERNSHIP AMY DISEASE VISIT ANNUAL PCP TEAM CHRONIC DISEASE VISIT [facility] Start: 04-03-2023 ANNUAL PCP TEAM HR INTERNSHIP AMY DISEASE VISIT ANNUAL PCP TEAM CHRONIC DISEASE VISIT [facility] Start: 03-17-2023 Depression Assessment Depression Ass essment [facility] Start: 11-15-2022 Covid-19 Vaccine ( season) Covid-19 Vaccine () [facility] Start: 11-15-2022 Influenza vaccination C [facility] Start: 10-03-2022 End: 12-03-2022 Thyrotropin [Units/volume] in Serum or Plasma TSH BLD Lab Routine Hypothyroidism, unspecified type Expected: 10/03/2022, Expires: 12/03/[address] [facility] Work Phone: Immunizations Immunization Date Immunization Notes Care Provider Smita howard 01-07-2022 influenza virus vacc ine, unspecified formulation Misti Arcos MD Work Phone: [facility] 01-12-2021 influenza, high-dose , quadrivalent vaccine (FLUZONE HIGH DOSE QUADRIVALENT) Amado Freeman DO Work Phone: [facility] 11-30-2019 influenza, high-dose , quadrivalent vaccine (FLUZONE HIGH DOSE QUADRIVALENT) Amado Freeman DO Work Phone: [facility] 02-01-2019 influenza, high dose seasonal, preservative-free Amado Freeman DO Work Phone: [facility] Work Phone: 10-01-2017 pneumococcal polysaccharide vaccine, 23 valent Amado Freeman DO Work Phone: [facility] 06-06-2015 pneumococcal conjuga te vaccine, 13 valent Amado Freeman DO Work Phone: [facility] Work Phone: 01-11-2015 influenza, high dose seasonal, preservative-free Amado Freeman DO Work Phone: [facility] 05-31-2011 pneumococcal polysaccharide vaccine, 23 valent Amado Freeman DO Work Phone: [facility] 05-30-2011 tetanus toxoid, redu jaylyn diphtheria toxoid, and acellular pertussis vaccine, adsorbed Amado Freeman DO Work Phone: [facility] Work Phone: Payers Date Payer Category Payer Medicare [id number] 2019 Unknown MMO MMO MEDICARE SUPPLEMENT [id number] 2019-Present [phone] [address] [place] [address] Indemnity [id number] 2019 Unknown MMO MMO MEDICARE SUPPLEMENT [id number] 2019-Present [phone] [address] [place] [address] Indemnity [id number] 2012 Medicare MEDICARE MEDICAR E A AND B [id number] 2012-Present [phone] [place] [address] Medicare [id number] 2012 Medicare [id number] Social History Date Type Detail Facility Start: 07-12-2016 End: 04-03-2022 Tobacco smoking status NHIS Ex-smoker [facility] Start: 11-21-1965 End: 03-17-1996 History of tobacco use Current smoker [facility] Start: 11-21-1965 End: 03-17-1996 History of tobacco use Cigarette Smoker [facility] Start: 01-08-2021 End: 04-24-2023 Alcohol intake Current drinker of alcohol (finding) [facility] Start: 01-08-2021 End: 04-01-2022 Alcohol intake [facility] Work Phone: Start: 07-12-2016 End: 04-03-2022 Tobacco Comment Parents smoked in childhood home. [facility] Start: 1945 Sex Assigned At Female [facility] Start: 08-10-2021 End: 09-10-2021 Exposure to SARS-CoV-2 (event) Not sure [facility] Work Phone: Start: 07-12-2016 End: 04-03-2022 Tobacco use and exposure Smokeless tobacco non-user [facility] Work Phone: Start: 04-01-2022 End: 10-02-2022 Tobacco use panel [facility] Work Phone: Adult Depression Screening Assessment 0 [facility] Work Phone: Start: 01-30-2019 Gender identity Identifies as female gender (finding) [facility] Start: 01-30-2019 Sexual orientation Heterosexual (fin tamara) [facility] Clinical Notes 01-19-2021 to 04-26-2023 Patient InstructionsTanSindhu chen APRN.[employer] - 04/24/2023 9:17 AM ESTTelephone Encounter - Kisha Velasquez LPN - 02/27/2023 3:18 PM [place]ina[place]ollo [place], LOUISE - 01/23/2023 3:17 PM EST Note Date & Type Note Facility 04-26-2023 Note HNO ID: [id number] Author: SINAI MUELLER APRN.[employer] Service: ? Author Type: Nurse Practitioner Type: Progress Notes Filed: 04/26/2023 10:56 Note Text: She came in with complaints of severe diarrhea for about a week. Patient says it seems to be getting worse. Patient says last night she had 2 bouts of extreme dizziness and unsteadiness. Patient is not eating. Patient has had a 8 pound weight loss in 2 days. Due to this fact patient is being sent to the emergency room for full evaluation and to have her electrolytes checked. Patient was okay with this care plan 's gun to take her now. [facility] 04-24-2023 Note HNO ID: [id number] Author: SINDHU QUINTANA APRN.[employer] Service: ? Author Type: Nurse Practitioner Type: [...] Negative for lesion (more content not included)... [facility] 04-24-2023 Instructions Sindhu Quintana APRN.CNP - 04/24/2023 9:39 AM EST Continue supportive care at home Stay well hydrated, if needed may drink a body armour May trial a bland diet Good hand hygiene Contact the office if symptoms get worse or do not improve. documented in this encounter [facility] 04-24-2023 History of Present illness Narrative [...] APRN.GLORIA This note was partially generated using [employer] voice recognition system. Note was reviewed for accuracy. There may be minor misspellings or grammar miscues with [employer] voice recognition. documented in this encounter [facility] 02-27-2023 Miscellaneous Notes Patient has been [...] Kisha Velasquez LPN. documented in this encounter [facility] 01-23-2023 Note HNO ID: [id number] Author: Pollo Zhang AUD Service: ? Author Type: Commercial Sewing Instructor Type: Progress Notes Filed: 01/23/2023 6:01 PM Note Text: [facility] [place] AUDIOLOGIC EVALUATION REPORT Name: Twan Okeefe CCF#: [id number] Date of Service: 01/23/2023 Date of : 1945 Age: [age] year old Referred by: Melissa Munoz MD [id number] [facility] [address] Referred for: Evaluation of suspected change in hearing, tinnitus, or balance. Referral documented: In an order in [facility] Patient's major complaints: Reduced hearing in both ears Twan Okeefe is a 77 year old female who was referred for a hearing test because of concerns for early onset dementia. She denied hearing loss, pain, pressure, tinnitus, and dizziness. Twan Okeefe was seen for an initial audiologic evaluation. See [facility] Audiogram for additional reported history and symptoms. [...] evaluation of middle ear function. CPT code: 61577 RIGHT EAR: Positive pressure (+160 daPa) with normal TM compliance LEFT EAR: Normal ME function. ACOUSTIC REFLEXES Description of procedure: This test is an objective measure of auditory and facial nerve pathways. CPT code: 09095, 37738 RIGHT EAR PROBE EAR: (ipsi right stimulus [...] conduction and speech recognition testing. CPT code: 48024 RIGHT EAR: Hearing Sensitivity: Normal hearing sensitivity from 250-4000 Hz sloping from a mild to moderately severe unspecified loss from 0746-9672 Hz. Word Recognition Score: Excellent (90-100%). WRS [...] moderate to moderately severe unspecified loss form 8729-1647 Hz. Word Recognition Score: Excellent (90-100%). WRS [...] is noted. Ciarra Ayers BA, AuD Student Louise Duarte, ROBBIE-A Testing was obtained under the direct supervision of Louise Duarte CCC/Olinda FLOWERS Abbrev- iation Definition Degree of hearing sensitivity dB range WNL within normal limits WNL 0 - 20 SNHL sensorineural hearing loss Mild 20-40 CHL conductive hearing loss Moderate 40-55 MHL mixed hearing loss Moderately-Severe 55-70 WRS word recognition score Severe 70-90 ME middle ear Profound 90 + TM tympanic membrane [facility] 01-23-2023 History of Present illness Narrative [facility] [place] AUDIOLOGIC EVALUATION REPORT Name: Twan Okeefe CCF#: [id number] Date of Service: 01/23/2023 Date of : 1945 Age: [age] year old Referred by: Melissa Munoz MD [address] [facility] [address] Referred for: Evaluation of suspected change in hearing, tinnitus, or balance. Referral documented: In an order in [facility] Patient's major complaints: Reduced hearing in both [...] evaluation of middle ear function. CPT code: 22796 RIGHT EAR: Positive pressure (+160 daPa) with normal TM compliance LEFT EAR: Normal ME function. ACOUSTIC REFLEXES Description of procedure: This test is an objective measure of auditory and facial nerve pathways. CPT code: 03069, 72515 RIGHT EAR PROBE EAR: (ipsi right stimulus [...] conduction and speech recognition testing. CPT code: 37209 RIGHT EAR: Hearing Sensitivity: Normal hearing sensitivity from 250-4000 Hz sloping from a mild to moderately severe unspecified loss from 1153-6711 Hz. Word Recognition Score: Excellent (90-100%). WRS [...] moderate to moderately severe unspecified loss form 0149-8919 Hz. Word Recognition Score: Excellent (90-100%). WRS [...] is noted. Ciarra Ayers BA, AuD Student Louise Duarte, ROBBIE-A Testing was obtained under the direct supervision of Louise Duarte CCC/A FLOWERS Abbrev- iation Definition Degree of hearing sensitivity dB range WNL within normal limits WNL 0 - 20 SNHL sensorineural hearing loss Mild 20-40 CHL conductive hearing loss Moderate 40-55 MHL mixed hearing loss Moderately-Severe 55-70 WRS word recognition score Severe 70-90 ME middle ear Profound 90 + TM tympanic membrane documented in this encounter [facility] 12-13-2022 Note HNO ID: [id number] Author: Melissa Munoz MD Service: ? Author Type: Physician Type: Progress Notes Filed: 12/13/2022 12:03 PM Note Text: SECTION OF SKULL BASE SURGERY MINIMALLY INVASIVE CRANIAL BASE AND PITUITARY SURGERY PROGRAM [facility] AND [facility] [place], [facility] CC: Patient Care Team: Amado Freeman [...] which included preparing to see the patient, [id number] patient care, completing clinical documentation, performing a medically appropriate examination, counseling and educating the patient/family/caregiver, communicating with other HCPs, independently interpreting results and care coordination. Melissa Munoz MD Staff, Skull Base AND Cerebrovascular Surgery Department of Neurological Surgery [facility] The patient is referred by Dr. [...] drop into ea (more content not included)... [facility] 12-13-2022 Instructions Melissa Munoz MD - 12/13/2022 [...] & Cerebrovascular Surgery Department of Neurological Surgery [facility] documented in this encounter [facility] 12-13-2022 History of Present illness Narrative Images from the original note were not included. SECTION OF SKULL BASE SURGERY MINIMALLY INVASIVE CRANIAL BASE & PITUITARY SURGERY PROGRAM Meredith Katieolinda [facility] & [facility] [place], [facility] CC: Patient Care Team: Amado Freeman [...] which included preparing to see the patient, [id number] patient care, completing clinical documentation, performing a medically appropriate examination, counseling and educating the patient/family/caregiver, communicating with other HCPs, independently interpreting results and care coordination. Melissa Munoz MD Staff, Skull Base & Cerebrovascular Surgery Department of Neurological Surgery [facility] The patient is referred by Dr. [...] mastoid air cells. documented in this encounter [facility] 12-13-2022 Nurse Note Additional intake questions: Has the patient had fever, nausea, vomiting, diarrhea, constipation, fatigue for > 1 week? No Does the patient have a decreased appetite? No Does patient want to see a Slicing Machine Operator? No (yes to any of above refer patient to schedulers for dietitian appointment) ) Does patient have any new or increased numbness or tingling of extremities? No Is patient interested in fertility information? No Does patient need any prescription refills? No Does patient have an advanced directive in place? Yes, no copy found in [facility] Patient referred to [facility] Electronically Signed By: Kalpana Bennett MA documented in this encounter [facility] 12-02-2022 Miscellaneous Notes [place] hartman. OK for verbal prescription. Thank you, Polina Lakhani APRN.[employer] [place] with [facility] pharmacy calls to say they don't do the compound prescriptions for eye drops bc they are a non-sterile pharmacy. They have the eye drops commercially available would that be ok? Pharmacist said they wouldn't be preservative free. Please call [place] back at [phone] with verbal ok to fill prescription. Katharina Mooney RN documented in this encounter [facility] 12-02-2022 Miscellaneous Notes The following approved [...] to just have the medication sent to [facility] pharmacy to avoid any difficulties with having it filled at [facility]. Patient states she is unsure if she has ever had it filled there before. Please review and advise. If provider agreeable to send to [facility], patient does not need a call back. Thank you. SANTHOSH Cardozo I have sent to [facility]. If this is a compounded medication, I am not sure that [facility] can fill this either. I believe the only compound pharmacy around here is [facility] but I am not positive. Has she had this filled before? Thank you, Polina Lakhani APRN.[employer] The following approved medication requests have been transmitted electronically. Requested Prescriptions Signed Prescriptions Disp Refills dexAMETHasone (PF) ophthalmic solution 0.1% (IP-CPD) 15 mL 2 Sig: Instill 1 drop into each ear canal twice daily until resolution of eczema. Then use as needed for flare-ups. Authorizing Provider: POLINA LAKHANI APRN.[employer] Patent returned call regarding message below. Requesting script be sent to [facility] for 90 day script if possible. Script [...] Katharina Mooney RN documented in this encounter [facility] 11-27-2022 Note HNO ID: [id number] Author: Misti Arcos MD Service: ? Author Type: Physician Type: Progress Notes Filed: 11/27/2022 10:25 AM Note Text: [facility] New Patient Evaluation Date: November 27, 2022 Patient Name: Twan Okeefe [facility] was asked by Dr. Freeman to evaluate Twan Okeefe. Our recommendations of care will be communicated by shared medical record. Reason for Evaluation/Chief complaint: memory problems Accompanied by: spouse --------- - SUBJECTIVE: HPI: Twan Okeefe is a 77 year old Left handed female who presents to the [facility] for an initial evaluation. Patient has [...] HISTORY FAMILY HI (more content not included)... [facility] 11-27-2022 Instructions Misti Arcos MD - 11/27/2022 [...] that have benefit for memory. To reach [facility]: For any questions or concerns, please call our offices at [phone]. You will be given a list of options. For appointments, please press option 1 For research or studies, press option 2 Providers office please press option 3, this will then direct you to our receptionist secretary who can be of further assistance. To reach your provider more easily, please feel free to use [facility]. If you are looking to make an appointment, please call [phone] or [phone]. documented in this encounter [facility] 11-27-2022 Nurse Note Twan Okeefe is a 77 year old year old left handed woman Accompanied by: spouse. 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 [facility] Vital Signs: BP 139/69 Pulse 60 Wt 82.1 kg (181 lb 1.6 oz) BMI 31.09 kg/m documented in this encounter [facility] 11-27-2022 History of Present illness Narrative Images from the original note were not included. [facility] New Patient Evaluation Date: November 27, 2022 Patient Name: Twan Okeefe [facility] was asked by Dr. Freeman to evaluate Twan Okeefe. Our recommendations of care will be communicated by shared medical record. Reason for Evaluation/Chief complaint: memory problems Accompanied by: spouse SUBJECTIVE: HPI: Twan Okeefe is a 77 year old Left handed female who presents to the [facility] for an initial evaluation. Patient has [...] 5.5 4.3 - 5.6 % Final Comment: [place] [employer] guidelines indicate that patients with [...] which included preparing to see the patient, [id number] patient care, completing clinical documentation, obtaining and/or reviewing separately obtained history, performing a medically appropriate examination, counseling and educating the patient/family/caregiver, ordering medications, tests, or procedures, and communicating with other HCPs (not separately reported). Voice recognition software was used to compose this office note. Please excuse any unintended typographical errors. Misti Arcos MD Geriatric Medicine [facility] 11/27/2022 9:14 AM CC: Referring Physician: Amado Freeman [address] [facility] [address] PCP: Amado Freeman [address] [place] [address] Patient Entered Data: Patient-Reported 11/25/2022 Where are [...] flowsheet data found. documented in this encounter [facility] 11-25-2022 Miscellaneous Notes Time Frame: MARTÍNEZ 1-2 weeks Provider: Hayley/ Anand/ Luciana Referring: Amado Freeman DO Images in [facility] Dx: Meningioma Patient: Twan Okeefe Address: Twan O[place] [id number] [place], [place] [id number] Per Triage: Twan Okeefe is a 77 [...] the right mastoid air cells. Linsey Velasco APRN.CNP November 25, 2022 Order Information Date and Time Department Ordering Authorizing 11/25/2022 9:18 AM [facility] Nicole Louise Devon S Order Providers Authorizing Provider Encounter Provider Lynn Sheth MD Swetlik, Carol E, MD Future Order Information Expires 11/25/23 Associated Diagnoses Meningioma (HCC) [D32.9] Reason for Exam Priority: Routine Dx: Meningioma (HCC) [D32.9 (ICD-10-CM)] Order Questions Question Answer [facility] Epic access? Yes Priority and Order Details Priority Class Routine Aurelia Internal Referral documented in this encounter [facility] 11-19-2022 Miscellaneous Notes Patient Edmundo returned call and went over results, notes from Dr Freeman with understanding. Assisted with transfer to a drupal php developer to get Neurosurgery appt set up. Message [...] .Amado Freeman DO documented in this encounter [facility] 11-15-2022 Note HNO ID: [id number] Author: Emilie Mauricio, CT Service: ? Author Type: Technologist Type: [...] DATE: November 15, 2022 TIME: 11:52 AM [facility] 11-15-2022 History of Present illness Narrative Radiology [...] TIME: 11:52 AM documented in this encounter [facility] 11-13-2022 Note Patient Outreach (GENESIS CAMN) TWAN OKEEFE ([id number]) 1945 F Date Time Provider Department 11/13/22 SCOTT MERRITT [facility] During your visit today, we recorded the [...] Encounter Status:Closed by SCOTT MERRITT on 11/13/22 [facility] 11-13-2022 Note HNO ID: [id number] Author: Scott Merritt PA-C Service: ? Author Type: Physician Custom Bow Maker Type: Progress Notes Filed: 11/13/2022 11:00 AM Note Text: Actionable Finding: ct Brain completed 10/16/[address] imaging findings suggestive of extra-axial mass lesion, likely meningioma, in the left posterior fossa, as detailed above. Follow-up MRI with and without contrast would be of benefit for further assessment. Follow up MRI brain ordered 10/16/22 as recommended. Actionable Finding addressed. Scott Merritt PA-C [facility] 11-13-2022 History of Present illness Narrative Actionable Finding: ct Brain completed 10/16/[address] imaging findings suggestive of extra-axial mass lesion, likely meningioma, in the left posterior fossa, as detailed above. Follow-up MRI with and without contrast would be of benefit for further assessment. Follow up MRI brain ordered 10/16/22 as recommended. Actionable Finding addressed. Scott Merritt PA-C documented in this encounter [facility] 10-16-2022 Note HNO ID: [id number] Author: Lynette Gutierrez RT(R) Service: ? Author Type: Pharmaceutical Sales Type: Progress Notes Filed: 10/16/2022 11:20 AM [...] RT Ness(Joseline) October 16, 2022 11:20 AM [facility] 10-16-2022 History of Present illness Narrative Radiology [...] IV DATA: Not applicable SIGNED BY: RT Ness(R) October 16, 2022 11:20 AM documented in this encounter [facility] 10-10-2022 Miscellaneous Notes Patient's returned call. He and his are unsure of how long she has not been taking the medication. He can't find a recent prescription bottle and he checked with [facility] and it was never filled there in the past. Neither of them know for certain the length of time she has been off of Levothyroxine. Jennifer Koroma RN Spoke with Patient. Patient is unsure [...] need a script called to [facility] here in town. She slept in and [...] Dr. Freeman is out would send to will call clerk and see if he would do this [...] Amado Freeman DO documented in this encounter [facility] 10-02-2022 Note HNO ID: [id number] Author: Amado Freeman DO Service: ? Author [...] exam No edema, (more content not included)... [facility] 10-02-2022 History of Present illness Narrative CC: [...] plan. See patient instructions. Amado Freeman DO [address] [place] [address] documented in this encounter [facility] 08-21-2022 Note Patient Outreach (IN TMMN) TWAN OKEEFE ([id number]) 1945 F Date Time Provider Department 08/21/22 AMADO FREEMAN During your visit today, we recorded the following information about you: Allergies As of Date: 08/21/2022 Noted Allergy Reaction IODINE 11/28/2004 2 - Rash Comments: questionable NAPROSYN (NAPROXEN) 11/28/2004 12 - Shortness of Breath SULFA (SULFONAMIDE ANTIBIOTICS) 09/10/2021 2 - Rash Comments: Significant rash Date Reviewed: 04/03/2022 Reviewed by: Chay Sargent APRN.[employer] - Fully Assessed Visit Diagnosis:Encounter for screening mammogram for breast cancer [Z12.31] Order(s):[facility] SCREENING [[id number]] Order #: [id number] FUTURE Prescriptions as of 08/26/2022 - montelukast [...] upper eyelids [H02.831,*01/19/2021 01/19/2021 Encounter Status:Closed by EPHRAIM GIL on 08/26/22 [facility] 04-05-2022 Miscellaneous Notes Patent was notified Janny [...] as Crestor? No other concerns. Chay Sargent APRN.GLORIA documented in this encounter [facility] 04-03-2022 Nurse Note Ambulatory Ear Lavage Pre-treatment: No pre-treatment Treatment: Both ears Equipment and Irrigation solution and Volume used: Single use syringe with single use irrigation tip Water Return flow appearance: Clear Patient tolerated procedure: yes Post-treatment: Post Irrigation Post-treatment: Ear Canal/Tympanic membrane assessed by LIP Chay Sargent CNP & BACKUP ADMINISTRATOR student Maile documented in this encounter [facility] 04-03-2022 History of Present illness Narrative Chief Complaint Patient presents with: Follow Up: Anxiety/dementia- forgetting things HPI Twan Okeefe is a 76 year old [...] References: 1. Folstein MF, Folstein SE, Vadim [place]. Mini-Mental State: a practical method for grading the cognitive state of patients for the clinician. J Psychiatr Res. 1975; 12:189-198. 2. JR Quinton, Ramesh MF, Mini-Mental State Examination (MMSE). Psychopharm Bull. 1988;24:689-692. 3. Rekha GiordanoT, Ravi FJ, Claudia RD, Chan A, Maximilian F. Neuropsychological function in Alzheimer's disease: pattern of impairment and rates of progression. Arch Neurol. 1988;45:263-268. 4. Meryl JA, Maria Guadalupe B, Roscoe SMonaP, Karl MELENDEZ. Predictors of cognitive and functional progression in patients with probable Alzheimer's disease. Neurology. 1992;42:5353-0465. Health Maintenance List HEPATITIS C SCREENING Never [...] Z13.220 - LIPID PANEL BASIC Chay Sargent APRN.CNP documented in this encounter [facility] 11-21-2021 Miscellaneous Notes Patient phones requesting refills as follows: Requested Prescriptions Pending Prescriptions Disp Refills montelukast (SINGULAIR) 10 mg tablet [Pharmacy Med Name: MONTELUKAST SODIUM 10 MG Tablet] 90 tablet 3 Sig: TAKE 1 TABLET EVERY DAY JENNIFER-09/10/21 Labs-07/05/21 NOV-none med filled 12/28/20 Please review and advise. Magalis Najera LPN documented in this encounter [facility] 09-10-2021 Miscellaneous Notes The following approved medication requests have been transmitted electronically. Signed Prescriptions Disp Refills mupirocin (BACTROBAN) 2 % ointment 15 g 1 Sig: Apply to affected area three times daily. for 10 days, location; right upper abdominal lesion Authorizing Provider: CHAY SARGENT APRN.CNP Agustín pharmacist from [place] calling Mupirocin 2% cream is not covered and cost is 200 hundred dollars asking if could change rx to Ointment which is covered for 5 dollars? Pending rx to file if wanted. Please advise documented in this encounter [facility] 09-10-2021 Miscellaneous Notes Addended by: CHAY SARGENT on: 09/10/2021 12:20 PM Modules accepted: Orders Addended by: MELISSA FISCHER MA on: 09/10/2021 12:11 PM Modules accepted: Orders documented in this encounter [facility] 09-10-2021 Instructions Chay Sargent APRN.GLORIA - 09/10/2021 10:23 AM EDT Keep an eye on the lesion infection. If it gets bigger, hot, starts to drain, etc, please let us know. I'll likely have results of the swab in 3-4 days. Use the cream twice daily. Please let me know if no improvement or worsening by or Friday. documented in this encounter [facility] 09-10-2021 History of Present illness Narrative [...] counseling and education. documented in this encounter [facility] 08-30-2021 History of Present illness Narrative [...] Patient agreeable to treatment plan. Polina Sheridan APRN.[employer]SEM[employer] [address] [place] [address] documented in this encounter [facility] 08-20-2021 History of Present illness Narrative [...] history is provided by the patient. No school speech language pathologist was used. Rash This is a new [...] the site - CEPHALEXIN 500 MG CAPSULE ALIA Hernandez student TEACHING PROVIDER (Physician/PA/[employer]) NOTE OF PERSONAL INVOLVEMENT IN CARE: I have personally seen and examined the patient and performed the medical decision-making components. I have reviewed the Advanced Practice Registered Nurse ([employer]) Student's documentation and verified the findings in the note as written. Any additions or changes are noted in bold/italics. Signature: Mirela Cochran Date: 08/20/2021 Time: 12:14 PM documented in this encounter [facility] 08-20-2021 Instructions Shantelle Chery - 08/20/2021 11:49 AM EDT ASSESSMENT/PLAN: 1. Skin infection - ICD9: 686.9, ICD10: L08.9 - Begin treatment with Cephalaxin (Keflex) - CEPHALEXIN 500 MG CAPSULE - Apply warm compress to the site ALIA Hernandez student documented in this encounter [facility] 07-11-2021 Miscellaneous Notes jennifer-- 01/08/21 Last [...] Daily Reyes RN documented in this encounter [facility] documented as of this encounter (statuses as of 07/11/2021) [facility] History of Past illness Narrative* Problem Noted Date Resolved Date Dermatochalasis of both upper eyelids 01/19/2021 01/19/2021 Goiter, unspecified 05/30/2011 documented as of this encounter (statuses as of 08/20/2021) [facility] History of Past illness Narrative* Problem Noted Date Resolved Date Dermatochalasis of both upper eyelids 01/19/2021 01/19/2021 Goiter, unspecified 05/30/2011 documented as of this encounter (statuses as of 08/30/2021) [facility] History of Past illness Narrative* Problem Noted Date Resolved Date Dermatochalasis of both upper eyelids 01/19/2021 01/19/2021 Goiter, unspecified 05/30/2011 documented as of this encounter (statuses as of 09/10/2021) [facility] History of Past illness Narrative* Problem Noted Date Resolved Date Dermatochalasis of both upper eyelids 01/19/2021 01/19/2021 Goiter, unspecified 05/30/2011 documented as of this encounter (statuses as of 09/10/2021) [facility] History of Past illness Narrative* Problem Noted Date Resolved Date Dermatochalasis of both upper eyelids 01/19/2021 01/19/2021 Goiter, unspecified 05/30/2011 documented as of this encounter (statuses as of 09/17/2021) [facility] History of Past illness Narrative* Problem Noted Date Resolved Date Dermatochalasis of both upper eyelids 01/19/2021 01/19/2021 Goiter, unspecified 05/30/2011 documented as of this encounter (statuses as of 11/21/2021) [facility] History of Past illness Narrative* Problem Noted Date Resolved Date Dermatochalasis of both upper eyelids 01/19/2021 01/19/2021 Goiter, unspecified 05/30/2011 documented as of this encounter (statuses as of 04/03/2022) [facility] History of Past illness Narrative* Problem Noted Date Resolved Date Dermatochalasis of both upper eyelids 01/19/2021 01/19/2021 Goiter, unspecified 05/30/2011 documented as of this encounter (statuses as of 04/05/2022) [facility] History of Past illness Narrative* Problem Noted Date Diagnosed Date Resolved Date Dermatochalasis of both upper eyelids 01/19/2021 01/19/2021 Goiter, unspecified 05/30/19 12 documented as of this encounter (statuses as of 10/02/2022) [facility] History of Past illness Narrative* Problem Noted Date Diagnosed Date Resolved Date Dermatochalasis of both upper eyelids 01/19/2021 01/19/2021 Goiter, unspecified 05/30/19 12 documented as of this encounter (statuses as of 10/10/2022) [place] [address]-05-2021 History of Past illness Narrative* Problem Noted Date Diagnosed Date Resolved Date Dermatochalasis of both upper eyelids 01/19/2021 01/19/2021 Goiter, unspecified 05/30/19 12 documented as of this encounter (statuses as of 11/13/2022) [place] [address]-05-2021 History of Past illness Narrative* Problem Noted Date Diagnosed Date Resolved Date Dermatochalasis of both upper eyelids 01/19/2021 01/19/2021 Goiter, unspecified 05/30/19 12 documented as of this encounter (statuses as of 11/19/2022) [facility] History of Past illness Narrative* Problem Noted Date Diagnosed Date Resolved Date Dermatochalasis of both upper eyelids 01/19/2021 01/19/2021 Goiter, unspecified 05/30/19 12 documented as of this encounter (statuses as of 11/25/2022) [facility] History of Past illness Narrative* Problem Noted Date Diagnosed Date Resolved Date Dermatochalasis of both upper eyelids 01/19/2021 01/19/2021 Goiter, unspecified 05/30/19 12 documented as of this encounter (statuses as of 11/25/2022) [facility] History of Past illness Narrative* Problem Noted Date Diagnosed Date Resolved Date Dermatochalasis of both upper eyelids 01/19/2021 01/19/2021 Goiter, unspecified 05/30/19 12 documented as of this encounter (statuses as of 11/27/2022) [facility] History of Past illness Narrative* Problem Noted Date Diagnosed Date Resolved Date Dermatochalasis of both upper eyelids 01/19/2021 01/19/2021 Goiter, unspecified 05/30/19 12 documented as of this encounter (statuses as of 12/02/2022) [facility] History of Past illness Narrative* Problem Noted Date Diagnosed Date Resolved Date Dermatochalasis of both upper eyelids 01/19/2021 01/19/2021 Goiter, unspecified 05/30/19 12 documented as of this encounter (statuses as of 12/03/2022) [facility] History of Past illness Narrative* Problem Noted Date Diagnosed Date Resolved Date Dermatochalasis of both upper eyelids 01/19/2021 01/19/2021 Goiter, unspecified 05/30/19 12 documented as of this encounter (statuses as of 12/13/2022) [facility] History of Past illness Narrative* Problem Noted Date Diagnosed Date Resolved Date Dermatochalasis of both upper eyelids 01/19/2021 01/19/2021 Goiter, unspecified 05/30/19 12 documented as of this encounter (statuses as of 01/19/2023) [facility] History of Past illness Narrative* Problem Noted Date Diagnosed Date Resolved Date Dermatochalasis of both upper eyelids 01/19/2021 01/19/2021 Goiter, unspecified 05/30/19 12 documented as of this encounter (statuses as of 01/19/2023) [facility] History of Past illness Narrative* Problem Noted Date Diagnosed Date Resolved Date Dermatochalasis of both upper eyelids 01/19/2021 01/19/2021 Goiter, unspecified 05/30/19 12 documented as of this encounter (statuses as of 01/24/2023) [facility] History of Past illness Narrative* Problem Noted Date Diagnosed Date Resolved Date Dermatochalasis of both upper eyelids 01/19/2021 01/19/2021 Goiter, unspecified 05/30/19 12 documented as of this encounter (statuses as of 03/01/2023) [facility] History of Past illness Narrative* Problem Noted Date Diagnosed Date Resolved Date Dermatochalasis of both upper eyelids 01/19/2021 01/19/2021 Goiter, unspecified 05/30/19 12 documented as of this encounter (statuses as of 04/24/2023) [facility] Diagnosis Psoriasis of scalp Other psoriasis [facility] Diagnosis Skin infection- Primary Unspecified local infection of skin and subcutaneous tissue [facility] Sebaceous [facility]- Primary [facility] Diagnosis Rash- Primary Rash and other nonspecific skin eruption Skin lesion Unspecified disorder of skin and subcutaneous tissue Drug rash Dermatitis due to drugs and medicines taken internally [facility] Diagnosis Encounter for screening mammogram for breast cancer [facility] Diagnosis Mild intermittent asthma without complication Unspecified asthma [facility] Diagnosis Short-term memory loss- Primary Memory [...] for lipid disorders [facility] Diagnosis Hypothyroidism, unspecified type- Primary [facility] Diagnosis Short-term memory loss- Primary Memory loss Hyperglycemia Other abnormal glucose Hypothyroidism, unspecified type Acute otitis media, right Unspecified otitis media Dyslipidemia Other and unspecified hyperlipidemia [facility] Diagnosis Hypothyroidism, unspecified type [facility] Diagnosis Abnormal finding on MRI of brain- Primary Nonspecific (abnormal) findings on radiological and other examination of skull and head Meningioma (HCC) Benign neoplasm of cerebral meninges [facility] Diagnosis Meningioma (HCC)- Primary Benign neoplasm of cerebral meninges [facility] Diagnosis Meningioma (HCC) [D32.9]- Primary Benign neoplasm of cerebral meninges [facility] 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 Mild cognitive impairment, so stated Abnormal finding on MRI of brain Nonspecific (abnormal) findings on radiological and other examination of skull and head Acquired hypothyroidism Unspecified hypothyroidism [facility] Diagnosis Eczema of both external ears [facility] Diagnosis Meningioma (HCC) Benign neoplasm of cerebral meninges [facility]* Diagnosis Short-term memory loss Memory loss [facility] Diagnosis Abnormal CT of brain Nonspecific (abnormal) findings on radiological and other examination of skull and head Brain mass Unspecified condition of brain [facility] Diagnosis Sensorineural hearing loss, bilateral- Primary [facility] Diagnosis Mild intermittent asthma without complication Unspecified asthma Dyslipidemia Other and unspecified hyperlipidemia [facility]* Diagnosis Viral gastroenteritis- Primary Intestinal infection due to other organism, not elsewhere classified [facility] Diagnostic Procedure Only (Routine) - Pending Review Specialty Diagnoses / Procedures Referred By Tristen weaver Referred To Contact [facility] IMAGING Diagnoses Encounter for screening mammogram for breast cancer Procedures JARED SCREENING SCREENING MAMMOGRAPHY BI 2-VIEW BREAST INC CAD Amado Freeman DO [address] [place] [address] [facility] [address] [place] [address] Referral ID Status Reason Start Date Expiration Date Visits Requested Visits Authorized [id number] Pending Review Auto-Generat ed Referral 09/12/2021 10/12/2022 1 1 [facility] Summary Purpose Family History No Family History Records FoundNo Family History Records Found Advance Directives No Advanced Directives Records FoundDocuments on File Type Date Recorded Patient It Trainer Expl anation Advance Directive(s) 01/19/2021 11:33 AM Documents on File Type Date Recorded Patient It Trainer Expl anation Advance Directive(s) 01/19/2021 11:33 AM [...] Referral Specialty Diagnoses / Procedures Referred By Tristen weaver Referred To Contact Neurology Diagnoses Short-term memory loss Procedures CONSULT TO NEUROLOGY OFFICE/OUTPATIENT [facility] MDM 60-74 MINUTES Amado Freeman DO [address] [place] [address] Referral ID Status Reason Start Date Expiration Date Visits Requested Visits Authorized [id number] Pending Review PCP Requested Referral 10/02/2022 10/02/2023 1 1 Specialty Diagnoses / Procedures Referred By Tristen weaver Referred To Contact CT IMAGING Diagnoses Short-term memory loss Procedures CT BRAIN WO IVCON CT HEAD/BRAIN W/O CONTRAST MATERIAL Amado Freeman DO [address] [place] [address] Ct Imaging Referral ID Status Reason Start Date Expiration Date Visits Requested Visits Authorized [id number] Pending Review Auto-Generat ed Referral 10/02/2022 11/01/2023 1 1 Specialty Diagnoses / Procedures Referred By Contac t Referred To Contact Neurosurgery Diagnoses Abnormal finding on MRI of brain Meningioma (HCC) Procedures CONSULT TO NEUROSURGERY OFFICE/OUTPATIENT [facility] 60-74 MINUTES Amado Freeman, DO [address] [place] [address] Referral ID Status Reason Start Date Expiration Date Visits Requested Visits Authorized [id number] Pending Review PCP Requested Referral 11/15/2022 11/15/2023 1 1 Specialty Diagnoses / Procedures Referred By Contac t Referred To Contact Diagnoses Meningioma (HCC) Procedures CONSULT TO NEURO ONCOLOGY OFFICE/OUTPATIENT [facility] 60-74 MINUTES Lynn Sheth MD [address] [facility] [address] [place], [place] [id number] Referral ID Status Reason Start Date Expiration Date Visits Requested Visits Authorized [id number] Pending Review PCP Requested Referral 11/25/2022 11/25/2023 1 1 Specialty Diagnoses / Procedures Referred By Contac t Referred To Contact CT IMAGING Diagnoses Short-term memory loss Procedures CT BRAIN WO IVCON CT HEAD/BRAIN W/O CONTRAST MATERIAL Amado Freeman, DO [address] [place] [address] [place] [address] Referral ID Status Reason Start Date Expiration Date V isits Requested Visits Authorized [id number] Closed Auto-Generate d Referral 10/09/2022 12/08/2022 1 1 Specialty Diagnoses / Procedures Referred By Contac t Referred To Contact MR IMAGING Diagnoses Abnormal CT of brain Brain mass Procedures MRI BRAIN WO/W IVCON MRI BRAIN BRAIN STEM W/O W/CONTRAST MATERIAL Amado Freeman, DO [address] [place] [address] [place] [address] Referral ID Status Reason Start Date Expiration Date V isits Requested Visits Authorized [id number] Closed Auto-Generate d Referral 11/07/2022 01/06/2023 1 1 Specialty Diagnoses / Procedures Referred By Contac t Referred To Contact Procedures HEARING TEST/AUDIOGRAM COMPRE AUDIOMETRY THRESHOLD EVAL SP RECOGNIJ Pollo Zhang, LOUISE [address] [place] [address] [facility] [address] [place] [address] Referral ID Status Reason Start Date Expiration Date Visits Requested Visits Authorized [id number] Pending Review Auto-Generat ed Referral 01/23/2023 01/24/2024 1 1 Additional Source Comments INFORMATION SOURCE (unrecogn ized section and content) DATE CREATED AUTHOR AUTHOR'S ORGANIZ ATION 04/28/2023 [facility] Source Comments (unrecognize d section and content) In the event this informatio n is protected by the Federal Confidentiality of Alcohol and Drug Abuse Patient Records regulations: The Federal rules restrict any use of the information to criminally investigate or prosecute any alcohol or drug abuse patient.[facility] the event this information is protected by the Federal Confidentiality of Alcohol and Drug Abuse Patient Records regulations: The Federal rules restrict any use of the information to criminally investigate or prosecute any alcohol or drug abuse patient.[facility] the event this information is protected by the Federal Confidentiality of Alcohol and Drug Abuse Patient Records regulations: The Federal rules restrict any use of the information to criminally investigate or prosecute any alcohol or drug abuse patient.[facility] the event this information is protected by the Federal Confidentiality of Alcohol and Drug Abuse Patient Records regulations: The Federal rules restrict any use of the information to criminally investigate or prosecute any alcohol or drug abuse patient.[facility] the event this information is protected by the Federal Confidentiality of Alcohol and Drug Abuse Patient Records regulations: The Federal rules restrict any use of the information to criminally investigate or prosecute any alcohol or drug abuse patient.[facility] the event this information is protected by the Federal Confidentiality of Alcohol and Drug Abuse Patient Records regulations: The Federal rules restrict any use of the information to criminally investigate or prosecute any alcohol or drug abuse patient.[facility] the event this information is protected by the Federal Confidentiality of Alcohol and Drug Abuse Patient Records regulations: The Federal rules restrict any use of the information to criminally investigate or prosecute any alcohol or drug abuse patient.[facility] the event this information is protected by the Federal Confidentiality of Alcohol and Drug Abuse Patient Records regulations: The Federal rules restrict any use of the information to criminally investigate or prosecute any alcohol or drug abuse patient.[facility] the event this information is protected by the Federal Confidentiality of Alcohol and Drug Abuse Patient Records regulations: The Federal rules restrict any use of the information to criminally investigate or prosecute any alcohol or drug abuse patient.[facility] the event this information is protected by the Federal Confidentiality of Alcohol and Drug Abuse Patient Records regulations: The Federal rules restrict any use of the information to criminally investigate or prosecute any alcohol or drug abuse patient.[facility] the event this information is protected by the Federal Confidentiality of Alcohol and Drug Abuse Patient Records regulations: The Federal rules restrict any use of the information to criminally investigate or prosecute any alcohol or drug abuse patient.[facility] the event this information is protected by the Federal Confidentiality of Alcohol and Drug Abuse Patient Records regulations: The Federal rules restrict any use of the information to criminally investigate or prosecute any alcohol or drug abuse patient.[facility] the event this information is protected by the Federal Confidentiality of Alcohol and Drug Abuse Patient Records regulations: The Federal rules restrict any use of the information to criminally investigate or prosecute any alcohol or drug abuse patient.[facility] the event this information is protected by the Federal Confidentiality of Alcohol and Drug Abuse Patient Records regulations: The Federal rules restrict any use of the information to criminally investigate or prosecute any alcohol or drug abuse patient.[facility] the event this information is protected by the Federal Confidentiality of Alcohol and Drug Abuse Patient Records regulations: The Federal rules restrict any use of the information to criminally investigate or prosecute any alcohol or drug abuse patient.[facility] the event this information is protected by the Federal Confidentiality of Alcohol and Drug Abuse Patient Records regulations: The Federal rules restrict any use of the information to criminally investigate or prosecute any alcohol or drug abuse patient.[facility] the event this information is protected by the Federal Confidentiality of Alcohol and Drug Abuse Patient Records regulations: The Federal rules restrict any use of the information to criminally investigate or prosecute any alcohol or drug abuse patient.[facility] the event this information is protected by the Federal Confidentiality of Alcohol and Drug Abuse Patient Records regulations: The Federal rules restrict any use of the information to criminally investigate or prosecute any alcohol or drug abuse patient.[facility] the event this information is protected by the Federal Confidentiality of Alcohol and Drug Abuse Patient Records regulations: The Federal rules restrict any use of the information to criminally investigate or prosecute any alcohol or drug abuse patient.[facility] Hospital[facility] the event this information is protected by the Federal Confidentiality of Alcohol and Drug Abuse Patient Records regulations: The Federal rules restrict any use of the information to criminally investigate or prosecute any alcohol or drug abuse patient.[facility] Hospital[facility] the event this information is protected by the Federal Confidentiality of Alcohol and Drug Abuse Patient Records regulations: The Federal rules restrict any use of the information to criminally investigate or prosecute any alcohol or drug abuse patient.[facility] the event this information is protected by the Federal Confidentiality of Alcohol and Drug Abuse Patient Records regulations: The Federal rules restrict any use of the information to criminally investigate or prosecute any alcohol or drug abuse patient.[facility] the event this information is protected by the Federal Confidentiality of Alcohol and Drug Abuse Patient Records regulations: The Federal rules restrict any use of the information to criminally investigate or prosecute any alcohol or drug abuse patient.[facility] the event this information is protected by the Federal Confidentiality of Alcohol and Drug Abuse Patient Records regulations: The Federal rules restrict any use of the information to criminally investigate or prosecute any alcohol or drug abuse patient.[facility] Reason for Visit (unrecogniz ed section and content) Specialty Diagnoses / Procedures Referred By Contac t Referred To Contact Diagnoses Meningioma (HCC) Procedures CONSULT TO NEURO ONCOLOGY OFFICE/OUTPATIENT [facility] 60-74 MINUTES Lynn Sheth MD [address] [address] Referral ID Status Reason Start Date Expiration Date Visits Requested Visits Authorized [id number] Pending Review PCP Requested Referral 11/25/2022 11/25/2023 [...] memory loss Procedures CONSULT TO NEUROLOGY OFFICE/OUTPATIENT [facility] 60-74 MINUTES Amado Freeman, DO [address] [place] [address] Referral ID Status Reason Start Date Expiration Date Visits Requested Visits Authorized [id number] Pending Review PCP Requested Referral 10/02/2022 10/02/2023 1 1 Reason Comments Medication Problem Reason Comments Medication Question Reason Comments Radiology CT Specialty Diagnoses / Procedures Referred By Contac t Referred To Contact CT IMAGING Diagnoses Short-term memory loss Procedures CT BRAIN WO IVCON CT HEAD/BRAIN W/O CONTRAST MATERIAL Amado Freeman, DO [address] [place] [address] Ct Imaging [place] [address] Referral ID Status Reason Start Date Expiration Date V isits Requested Visits Authorized [id number] Closed Auto-Generate d Referral 10/09/2022 12/08/2022 1 1 Specialty Diagnoses / Procedures Referred By Contac t Referred To Contact MR IMAGING Diagnoses Abnormal CT of brain Brain mass Procedures MRI BRAIN WO/W IVCON MRI BRAIN BRAIN STEM W/O W/CONTRAST MATERIAL Amado Freeman, DO [address] [place] [address] Mr Imaging [place] [address] Referral ID Status Reason Start Date Expiration Date V isits Requested Visits Authorized [id number] Closed Auto-Generate d Referral 11/07/2022 01/06/2023 1 1 Reason Comments Hearing Test dementia/tumor outsi de of brain Ear Problem drainage, clear, lef t > right Specialty Diagnoses / Procedures Referred By Contac t Referred To Contact Diagnoses Meningioma (HCC) Procedures HEARING TEST/AUDIOGRAM COMPRE AUDIOMETRY THRESHOLD Melissa Cotton MD [address] [place] [address] [facility] [address] [place] [address] Referral ID Status Reason Start Date Expiration Date V isits Requested Visits Authorized [id number] Closed Auto-Generate d Referral 12/13/2022 03/13/2023 1 1 Reason Onset Date Comments Refill Request 02/27/2023 Reason Comments Acute Visit diarrhea x 2 days Care Teams (unrecognized sec tion and content) Tester Waste Disposal Leakage Relationship Specialty Start Date End Date Amado Freeman, DO [address] [facility] [place] [address] PCP - General Family Practice 06/06/15 [employer] Disposal Leakage Relationship Specialty Start Date End Date Amado Freeamn, DO [address] [facility] [place] [address] PCP - General Family Practice 06/06/15 Tester [employer] Disposal Leakage Relationship Specialty Start Date End Date Amado Freeman DO [address] [place] [address] PCP - General Family Practice 06/06/15 Tester Waste Disposal Leakage Relationship Specialty Start Date End Date Amado Freeman DO [address] [facility] [place] [address] PCP - General Family Practice 06/06/15 Tester [employer] Disposal Leakage Relationship Specialty Start Date End Date Amado Freeman DO [address] [place] [address] PCP - General Family Medicine 06/06/15 T[employer] Disposal Leakage Relationship Specialty Start Date End Date Amado Freeman DO [address] [place] [address] PCP - General Family Medicine 06/06/15 Tester [employer] Disposal Leakage Relationship Specialty Start Date End Date Amado Freeman DO [address] [place] [address] PCP - General Family Medicine 06/06/15 Tester Waste Disposal Leakage Relationship Specialty Start Date End Date Amado Freeman DO [address] [facility] [address] PCP - General Family Medicine 06/06/15 Tester Waste Disposal Leakage Relationship Specialty Start Date End Date Amado Freeman DO [address] [place] [address] PCP - General Family Medicine 06/06/15 Tester Waste Disposal Leakage Relationship Specialty Start Date End Date Amado Freeman DO [address] [place] [address] PCP - General Family Medicine 06/06/15 Tester Waste Disposal Leakage Relationship Specialty Start Date End Date Amado Freeman DO [address] [place] [address] PCP - General Family Medicine 06/06/15 Tester Waste Disposal Leakage Relationship Specialty Start Date End Date Amado Freeman DO [address] [place] [address] PCP - General Family Medicine 06/06/15 Tester Waste Disposal Leakage Relationship Specialty Start Date End Date Amado Freeman DO [address] [place] [address] PCP - General Family Medicine 06/06/15 Tester Waste Disposal Leakage Relationship Specialty Start Date End Date Amado Freeman DO [address] [place] [address] PCP - General Family Medicine 06/06/15 Tester Waste Disposal Leakage Relationship Specialty Start Date End Date Amado Freeman DO [address] [place] [address] PCP - General Family Medicine 06/06/15 Tester Waste Disposal Leakage Relationship Specialty Start Date End Date Amado Freeman DO [address] [place] [address] PCP - General Family Medicine 06/06/15 Tester Waste Disposal Leakage Relationship Specialty Start Date End Date Amado Freeman DO [address] [place] [address] PCP - General Family Medicine 06/06/15 Tester Waste Disposal Leakage Relationship Specialty Start Date End Date Amado Freeman DO [address] [place] [address] PCP - General Family Medicine 06/06/15 Tester Waste Disposal Leakage Relationship Specialty Start Date End Date Amado Freeman DO [address] [place] [address] PCP - General Family Medicine 06/06/15 Tester Waste Disposal Leakage Relationship Specialty Start Date End Date Amado Freeman, [address] [place] [address] PCP - General Family Medicine 06/06/15 FOR [...] BE BASED ON THE PRIMARY CLINICAL RECORDS. [employer] provides no warranty or guarantee of the accuracy or completeness of information in this document.
[2023-05-02 17:11] VITALS: BP 135/59; PULSE 68; RESP 14; O2SAT 96
[2023-05-02 17:22] LABS: ALB/GLOB Ratio 0.9 RATIO (0.9-2.4); AST(SGOT) 26 U/L (15-37); Alanine Aminotransfer ALT/SGPT 23 U/L (13-56); Albumin, Serum 3.5 g/dL (3.2-5.0); Alkaline Phosphatase 71 U/L (45-117); Anion Gap 11 (5-15); BUN 7 mg/dL (7-18); BUN/Creat Ratio 7.3 RATIO (10-20); Calcium,Total 8.6 mg/dL (8.5-10.1); Chloride 92 mmol/L (98-107); Creatinine, Serum 0.95 mg/dL (0.55-1.02); EST Glomerular Filtration Rate 61 mL/min (>60); Est Glom Filt Rate - Afr Amer 73 mL/min (>60); Estimated Creatinine Clearance 52.15 ml/min; Globulin 3.9 g/dL (2.2-4.2); Glucose 106 mg/dL (74-106); Lipase 24 U/L (13-75); Potassium 2.3 mmol/L (3.5-5.1); Protein, Total 7.4 g/dL (6.4-8.2); Sodium Level 133 mmol/L (136-145); Thyroid Stim Hormone (TSH) 5.23 uIU/mL (0.358-3.74)
[2023-05-02] MEDS: Potassium Chloride 10mEq/100mL 10 MEQ/100 ML IV.SOLN. 100 MEQ IV BOLUS ×2 (17:46→19:01)
[2023-05-02] MEDS: Potassium Chloride Oral Soln 20 MEQ/15 ML UDC 40 MEQ PO (17:46)
[2023-05-02 17:58] LABS: Magnesium 2.2 mg/dL (1.6-2.6)
[2023-05-02 20:06] VITALS: BP 111/69; PULSE 80; RESP 16; TEMP 36.2; O2SAT 95
== END 2023-05-02 20:07 | disposition home or self-care (01) ==
LOC: ED 14:56
PROVIDERS: Emergency Provider Emergency Medicine; PCP Student in an Organized Health Care Education/Training Program; Visit Provider Emergency Medicine
DX: R19.7 Diarrhea, unspecified (principal); E87.6 Hypokalemia; Z87.891 Personal history of nicotine dependence; E03.9 Hypothyroidism, unspecified; Z79.899 Other long term (current) drug therapy
CPT/HCPCS: 74176; 80053; 83690; 83735; 84443; 85025; 96361; 96365; 96366; 99283